=== PATIENT | female | born 1955 | race Caucasian/White ===

== ENCOUNTER 2019-06-17 15:44 | Emergency (ER) | payer MEDICARE, OTHER ==
[~2019-06-17] VITALS: Ht 167.6 cm; Wt 98.0 kg
--- NOTE | 2019-06-17 16:51 | NUR ---
BLADDER SCAN --<120ML
[2019-06-17 17:29] LABS: BILIRUBIN,URINE NEGATIVE (NEGATIVE); CLARITY,URINE SL CLOUDY (CLEAR); COLOR,URINE ORANGE (YELLOW); KETONES,URINE NEGATIVE (NEGATIVE); LEUKOCYTE ESTERASE ,URINE TRACE (NEGATIVE); NITRITE,URINE POSITIVE (NEGATIVE); PROTEIN,URINE DIPSTICK 1+ (NEGATIVE); URINE UROBILINOGEN 4 mg/dL (0.2 - 1)
[2019-06-17] MEDS ORDERED: CEFTRIAXONE SOD 1 GM VIAL IM ONE (17:45)
[2019-06-17 18:30] LABS: BACTERIA,URINE MANY /HPF; EPITHELIAL CELLS,URINE FEW /LPF; WBC,URINE (MAN) 0-5 /HPF (0-5)
== END 2019-06-17 18:19 | disposition home or self-care (01) ==
LOC: ER 15:44
DX: R30.0 Dysuria (principal); N30.90 Cystitis, unspecified without hematuria; I10 Essential (primary) hypertension; E11.9 Type 2 diabetes mellitus without complications; M79.7 Fibromyalgia
CPT/HCPCS: 81001; 87086; 87186; 99284; J0696

== ENCOUNTER 2020-06-17 13:59 | Emergency (ER) | payer MEDICARE, OTHER ==
[~2020-06-17] VITALS: Ht 167.6 cm; Wt 98.0 kg
[2020-06-17] MEDS ORDERED: HYDROCODONE/APAP 7.5MG-325MG 1 EA TAB PO PRN (14:30)
--- OUTSIDE RECORDS SUMMARY | 2020-06-17 15:11 | XMS REPORT | Summary of Care ---
Author [facility] Address [address] [place] [address] Phone Unavailable Care Team Providers Care Crating And Moving Estimator Name Role Phone NASRIN Díaz, VICKI Grace Unavailable NASRIN Díaz, VICKI Jaramillo Unavailable Unavailable RAI EDMONDS [facility], LAI DOMINGUEZ Unavailable Unavailable SORIN LEOS MD Unavailable Unavailable RAI Aguillon, LAI Unavailable Unavailable NASRIN MITCHELL VA, VICKI Reyes Unavailable Unavailable SAAD EDMONDS [facility], BG MARQUIS Unavailable Unavailable Unavailable Unavailable Functional Status Name Dates Details Functional status health issues are not documented Status: Name Dates Details Cognitive status health issues are not d ocumented Status: Problems Name Dates Details Breast cancer screening (V76.10, Z12.39) Status: Active Osteoporosis screening (V82.81, Z13.820) Status: Active Encounter for cervical Pap smear with pe lvic exam (V76.2, Z01.419) Status: Active History of Elevated ALT measurement (790 .4, R74.0) Status: Resolved Urinary urgency (788.63, R39.15) Status: Active Synovial cyst of right popliteal space ( 727.51, M71.21) Status: Active Anemia, unspecified type (285.9, D64.9) Status: Active Acute frontal sinusitis (461.1, J01.10) Status: Active 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, with long-term current use of insulin (250.60, E11.40) Status: Active Common migraine without aura (346.10, G4 3.009) Status: Active Essential (primary) hypertension (401.9, I10) Status: Active Dysthymic disorder (300.4, F34.1) Status: Active 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, 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 Colon cancer screening (V76.51, Z12.11) Status: Active Insomnia, idiopathic (307.42, F51.01) Status: Active Hypothyroidism due to acquired atrophy o f thyroid (244.8, E03.4) Status: Active HSV (herpes simplex virus) infection (05 4.9, B00.9) Status: Active GERD without esophagitis (530.81, K21.9) Status: Active Fibromyalgia (729.1, M79.7) Status: Active Need for influenza vaccination (V04.81, Z23) Status: Active Need for Streptococcus pneumoniae vaccin ation (V03.82, Z23) Status: Active Polyarthropathy, 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, 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: Active Seasonal allergic rhinitis due to pollen (477.0, J30.1) Status: Active Tremor, coarse (781.0, G25.2) Status: Active Well female exam with routine gynecologi kunal exam (V72.31, Z01.419) Status: Active Visit for screening mammogram (V76.12, Z 12.31) Status: Active Post-menopausal (V49.81, Z78.0) Status: Active Atypical squamous cell changes of undete rmined significance (ASCUS) on vaginal cytology (795.11, R87.620) Status: Active Abnormal Pap smear of cervix (795.00, R8 7.619) Status: Active Post-menopausal bleeding (627.1, N95.0) Status: Active Obstructive sleep apnea (327.23, G47.33) Status: Active Essential tremor (333.1, G25.0) Status: Active Medications Name Dates Details DULoxetine HCl - 60 MG Oral Capsule Mary yed Release Particles TAKE ONE CAPSULE BY MOUTH ONCE A DAY.. NEEDS OFFICE VISIT Quantity: 30 NASRIN N.P.VICKI * Start : 20-Jun-2017 Active Levothyroxine Sodium 150 MCG Oral Tablet TAKE 1 TABLET DAILY. * Quantity: 90 Refills: 3 NASRIN N.P.VICKI Active Cyclobenzaprine HCl - 10 MG Oral Tablet 1 tab PO BID * Quantity: 180 Refills: 0 NASRIN Gil.P.VICKI Active Aspirin 81 MG TABS one daily * Refills: 0 Active Malorie-Rul Vitamin D 50 MCG (1999 UT) Oral Tablet * Refills: 0 Active Melatonin 10 MG Oral Capsule at HS * Refills: 0 Active Multivitamins CAPS TAKE 1 CAPSULE DAILY. * Refills: 0 Active metFORMIN HCl ER 500 MG Oral Tablet Extended Release 24 Hour TAKE 2 TABLETS BY MOUTH TWICE DAILY * Quantity: 360 Refills: 0 ALEXANDRA N.P., VICKI D. * Start : 30-Dec-2014 Active SUMAtriptan Succinate 100 MG Oral Tablet TAKE 1 TABLET BY MOUTH FOR MIGRAINE RELIEF. MAY REPEAT 2 HOURS LATER IF NEEDED. MAXIMUM 2 TABLETS PER DAY. * Quantity: 1 Refills: 6 ALEXANDRA N.P., VICKI D. * Start : 02-Feb-2016 Active 9 Tablet Bottle Aleve 220 MG Oral Tablet TAKE 2 TABLET 2 TIMES DAILY PRN w/ Sumatriptan * Refills: 0 ALEXANDRA N.P., VICKI * Start : 02-Feb-2016 Active Vitamin B-12 500 MCG Sublingual Tablet Sublingual ONE TAB ORALLY ONCE OR TWICE A DAY FOR MIGRAINE PREVENTION. * Refills: 0 ALEXANDRA N.P., VICKI * Start : 02-Feb-2016 Active Fosinopril Sodium 10 MG Oral Tablet TAKE 1 TABLET BY MOUTH EVERY DAY * Quantity: 90 Refills: 0 ALEXANDRA N.P., VICKI D. * Start : 14-Apr-2017 Active traMADol HCl - 50 MG Oral Tablet 1-2 PO Q6 hrs PRN * Quantity: 90 Refills: 2 ALEXANDRA N.P., VICKI D. * Start : 18-Dec-2018 Active Diclofenac Epolamine 1.3 % Transdermal Patch APPLY PATCH TO AFFECTED AREA TWICE DAILY. * Quantity: 2 Refills: 5 ALEXANDRA N.P., VICKI * Start : 06-Mar-2019 Active 30 Patch Box Gabapentin 300 MG Oral Capsule TAKE 1 CAPSULE IN THE MORNING AND 1-2 CAPSULES IN THE EVENING. * Refills: 0 ALEXANDRA N.P., VICKI Reyes. * Start : 06-Sep-2019 Active MethylPREDNISolone Acetate 40 MG/ML Injection Suspension 1.5 ML IM x1= 60 MG * Quantity: 0 Refills: 0 ALEXANDRA N.P., VICKI D. * Start : 06-Sep-2019 Admin Requested L-Lysine 500 MG Oral Tablet TAKE 1 TABLET DAILY forcold sore prevention * Refills: 0 ALEXANDRA N.P., VICKI D. * Start : 06-Sep-2019 Active Cod Liver Oil Oral Capsule 3-4 caps twice a day for Arthritis..0.3-4 week trial * Refills: 0 ALEXANDRA N.P., VICKI D. * Start : 06-Sep-2019 Active Allergies and Adverse Reactions Name Dates Details buPROPion HCl TABS (Allergy) Status: Act veronika Darvocet-N 50 TABS (Allergy) Status: Act veronika Erythromycin TABS (Allergy) Status: Acti ve Past Medical History Name Dates Details History of Abdominal pain, acute, epigas tric (789.06, R10.13) Status: Resolved History of Achilles tendinitis (726.71, M76.60) Status: Resolved History of Acute bacterial pharyngitis ( 462, J02.8) Status: Resolved History of acute bronchitis (V12.69, Z87 .09) Status: Resolved History of acute cystitis (V13.02, Z87.4 40) Status: Resolved History of acute cystitis (V13.02, Z87.4 40) Status: Resolved History of acute pharyngitis (V12.69, Z8 7.09) Status: Resolved History of Acute upper respiratory infec tion (465.9, J06.9) Status: Resolved History of Acute UTI (599.0, N39.0) Status: Resolved History of Acute UTI (599.0, N39.0) Status: Resolved History of Acute UTI (599.0, N39.0) Status: Resolved History of Arthritis Of Multiple Sites ( 716.99) Status: Resolved History of backache (V13.59, Z87.39) Status: Resolved History of Cough (786.2, R05) Status: Resolved History of Elevated ALT measurement (790 .4, R74.0) Status: Resolved History of essential hypertension (V12.5 9, Z86.79) Status: Resolved History of fibromyositis (V13.59, Z87.39 ) Status: Resolved History of fracture of clavicle (V15.51, Z87.81) Status: Resolved History of hypothyroidism (V12.29, Z86.3 9) Status: Resolved History of Intractable nausea and vomiti ng (536.2, R11.2) Status: Resolved History of Multiparity (V61.5, Z64.1) Status: Resolved History of Need for hepatitis C screenin g test (V73.89, Z11.59) Status: Resolved History of Need for Td vaccine (V06.5, Z 23) Status: Resolved History of Pain in hand (729.5, M79.643) Status: Resolved History of persistent cough (V12.69, Z87 .09) Status: Resolved History of precordial chest pain (V13.89 , Z87.898) Status: Resolved History of recurrent urinary tract infec tion (V13.02, Z87.440) Status: Resolved History of Right knee pain (719.46, M25. 561) Status: Resolved History of urinary frequency (V13.09, Z8 7.898) Status: Resolved History of urinary tract infection (V13. 02, Z87.440) Status: Resolved History of urinary tract infection (V13. 02, Z87.440) Status: Resolved Procedures Procedure Dates Details [Q] FECAL GLOBIN BY IMMUNOCHEM. (MEDICARE) Date: 27-Nov-2019 History of Tonsillectomy With Adenoidectomy Completed History of Appendectomy Completed History of Cholecystectomy Completed History of Dilation And Curettage Comple nish History of Gallbladder surgery Completed History of Knee Surgery Completed History of Tubal Ligation Completed Immunization Name Dates Details Fluzone Quadrivalent 0.5 ML Intramuscula r Suspension Lot #: [id number] on: 28-Jan-2016 Tdap (Adacel) Lot #: [id number] on: 28-Jan-2016 Fluzone High-Dose 0.5 ML Intramuscular S uspension Prefilled Syringe Lot #: [id number] on: 06-Sep-2019 Prevnar 13 Intramuscular Suspension Lot #: [id number] on: 06-Sep-2019 Family History Name Dates Details Family history of lung cancer (V16.1, Z8 0.1) Status: Active Family history of leukemia (V16.6, Z80.6 ) Status: Active Family history of Cirrhosis, nonalcoholi c (571.5, K74.60) Status: Active Name Dates Details Family history of leukemia (V16.6, Z80.6 ) Status: Active Family history of Cirrhosis, nonalcoholi c (571.5, K74.60) Status: Active Name Dates Details Family history of Hypertension (V17.49) Status: Active Name Dates Details Family history of Hypertension (V17.49) Status: Active Social History Name Dates Details - Status: Name Dates Details Never smoker Never smoker Vital Signs Date Test Result Details [id number] BP Systolic 123 mm[Hg] Status: Comments: Lo cation: RUE; Position: Sitting BP Diastolic 82 mm[Hg] Status: Comments: Lo cation: RUE; Position: Sitting Height 166.5 cm Status: Weight 99 kg Status: Body Mass Index Calculated 35.71 kg/m2 Status: Body Surface Area Calculated 2.07 m2 Status: Temperature 97.6 f Status: Comments: Me thod: Oral Heart Rate 92 /min Status: Respiration Rate 16 /min Status: Results Date Description Value Details Results not documented Plan of Care Name Dates Details Planned Observations Planned Goals not documented Planned Encounters Appointment; SORIN LEOS M.D. On: 31-Dec-2019 7:30 Appointment; SORIN LEOS M.D. On: 13-Jan-2020 10:40 Instructions Name Dates Details Instructions not documented Encounters Appointment; VICKI ALEXANDRA NP Encounter Diagnosis: Problem not documented On: 04-Jan-2018 13:30 Appointment; VICKI ALEXANDRA NP Encounter Diagnosis: Problem not documented On: 18-Jan-2018 14:00 Appointment; KRYSTAL AGGARWAL NP Encounter Diagnosis: Problem not documented On: 02-Mar-2018 10:45 Appointment; VICKI ALEXANDRA NP Encounter Diagnosis: Problem not documented On: 24-May-2018 14:00 Appointment; WILLIS MENDEZ, P.AMeka Encounter Diagnosis: Problem not documented On: 11-Jun-2018 12:30 Appointment; WILLIS MENDEZ, P.AMeka Encounter Diagnosis: Problem not documented On: 14-Aug-2018 14:30 Appointment; VICKI ALEXANDRA NP Encounter Diagnosis: Problem not documented On: 18-Dec-2018 11:00 Appointment; VICKI ALEXANDRA NP Encounter Diagnosis: Problem not documented On: 31-Jan-2019 14:15 Appointment; VICKI ALEXANDRA NP Encounter Diagnosis: Problem not documented On: 13-Feb-2019 13:30 Appointment; VICKI ALEXANDRA NP Encounter Diagnosis: Problem not documented On: 05-Jun-2019 10:00 Appointment; VICKI ALEXANDRA NP Encounter Diagnosis: Problem not documented On: 10-Jul-2019 14:30 Appointment; VICKI ALEXANDRA NP Encounter Diagnosis: Problem not documented On: 06-Sep-2019 10:30 Appointment; WILLIS MENDEZ, P.A. Encounter Diagnosis: Problem not documented On: 19-Sep-2019 10:00 Appointment; SORIN LEOS M.D. Encounter Diagnosis: Problem not documented On: 07-Oct-2019 11:00 Appointment; SORIN LEOS M.D. Encounter Diagnosis: Problem not documented On: 29-Oct-2019 11:30 Appointment; [facility]PERATOR-[facility]COLOGY, PROVIDER Encounter Diagnosis: Problem not documented On: 11-Nov-2019 9:00 Appointment; SORIN LEOS M.D. Encounter Diagnosis: Problem not documented On: 18-Nov-2019 12:20 Appointment; SORIN LEOS M.D. Encounter Diagnosis: Problem not documented On: 09-Dec-2019 10:20
--- OUTSIDE RECORDS SUMMARY | 2020-06-17 15:11 | XMS REPORT ---
Author Author [facility]ES[facility] AGU[facility] Organization Unknown Address Unknown Phone Care Team Providers Care Patient Safety Officer Name Role Phone PATTY AGUILAR PP Unavailable Reason for Referral No Reason for Referral was given. History of Present Illness No HPI available. Problems * Normal Routine History And Physical Adult (V70.0); (Active) * Atrial Fibrillation (427.31); (Active) * Fibromyalgia (729.1); (Active) * Pain In The Hands (729.5); (Active) * Diabetes Mellitus (250.00); (Active) * Depression (311); (Active) * Hypertension (401.9); (Active) * Hypothyroidism (244.9); (Active) * Acute Sore Throat (462); (Active) * Acute Upper Respiratory Infection (465.9); (Active) * Polyarthritis Of Multiple Sites (716.59); (Active) Medication * Cymbalta 60 MG Oral Capsule Delayed Release Particles; ONCE DAILY (Active) * Janumet 50-500 MG Oral Tablet; TAKE 1 TABLET TWICE DAILY WITH MEALS.; Start Date: ; End Date: (Active) * Levothyroxine Sodium 150 MCG Oral Tablet; TAKE 1 TABLET DAILY.; Start Date: ; End Date: (Active) * Cyclobenzaprine HCl 5 MG Oral Tablet; TAKE 0.5 TABLET DAILY (Active) * Fosinopril Sodium 20 MG Oral Tablet; TAKE 1 TABLET DAILY.; Start Date: ; End Date: (Active) * Aspirin 81 MG Oral Tablet; one daily (Active) * TraMADol HCl 50 MG Oral Tablet; 1-2 PO Q6 hrs PRN; Start Date: 12/05/2013; End Date: (Active) * Niacin 500 MG Oral Tablet; BID (Active) * Vitamin D3 1000 UNIT Oral Tablet; daily (Active) * Fish Oil CAPS; 1200 BID (Active) * Melatonin 10 MG Oral Capsule; at HS (Active) * Valerian Root 450 MG Oral Capsule; for sleep; Start Date: 12/05/2013 (Active) * Advil CAPS; PRN (Active) * Multivitamins CAPS; TAKE 1 CAPSULE DAILY. (Active) * Meloxicam 7.5 MG Oral Tablet; TAKE 1 TO 2 TABLETS DAILY WITH FOOD.; Start Date: 12/17/2013; End Date: (Active) * Cefdinir 300 MG Oral Capsule; TAKE 2 CAPSULES DAILY.; Start Date: 12/13/2013; End Date: (Active) * Magic Mouthwash; swish, garge & spit q 30 min PRN; Start Date: 12/13/2013 (Active) Allergies and Adverse Reactions * Erythromycin TABS (Active) * Darvocet-N 50 TABS (Active) Past Medical History * History of History Of 2 Previous Pregnancies (V61.5); (Resolved) * History of Fibromyalgia (729.1); (Resolved) * History of Diabetes Mellitus (250.00); (Resolved) * History of Hypothyroidism (244.9); (Resolved) * History of Hypertension (401.9); (Resolved) * History of Obstructive Sleep Apnea (327.23); (Resolved) * History of Arthritis Of Multiple Sites (716.99); (Resolved) Procedures Procedure Procedure Date Date Completed Status Tonsillectomy With Adenoidectomy - - Resolved Appendectomy - - Resolved Cholecystectomy - - Resolved Dilation And Curettage - - Resolved Family History * Maternal history of Hypertension (V17.49); (Active) * Paternal history of Hypertension (V17.49); (Active) Social History * Marital History - Single (Active) * Being A Social Drinker (Active) * Never A Smoker (Active) * 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 Encounters * AUDIT 12/17/2013
--- OUTSIDE RECORDS SUMMARY | 2020-06-17 15:11 | XMS REPORT ---
Author Author LESLY AGUILAR Organization Unknown Address Unknown Phone Care Team Providers Care Destination Coordinator Name Role Phone PATTY AGUILAR PP Unavailable [...] * Polyarthritis Of Multiple Sites (716.59); (Active) * Cough (786.2); (Active) * Back Pain (724.5); (Active) * Tendonitis Of The Achilles Tendon (726.71); (Active) Medication * Cymbalta 60 MG Oral [...] MG Oral Tablet; one daily (Active) * Niacin 500 MG Oral Tablet; BID (Active) * Vitamin D3 1000 UNIT Oral Tablet; daily (Active) * Fish Oil CAPS; 1200 BID (Active) * Melatonin 10 MG Oral Capsule; at HS (Active) * Valerian Root 450 MG Oral Capsule; for sleep; Start Date: 12/05/2013 (Active) * Advil CAPS; PRN (Active) * Multivitamins CAPS; TAKE 1 CAPSULE DAILY. 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 Encounters * AUDIT 12/31/2013
--- OUTSIDE RECORDS SUMMARY | 2020-06-17 15:11 | XMS REPORT | Continuity of Care Document ---
[facility] Address Unknown Phone Unavailable Care Team Providers Care Negative Spotter Name Role Phone [employer] Unavailable Un available Problems Problem Status Onset Date Classification Date Reported Comments Source Atrial Fibrillation Active 01/13/2014 [facility] Acute Sore Throat Active 01/13/2014 [facility] Acute Upper Respiratory Infection Active 01/13/2014 [facility] Fibromyalgia Active 01/13/2014 [facility] Pain In The Hands Active 01/13/2014 [facility] Diabetes Mellitus Active 01/13/2014 [facility] Depression Active 01/13/2014 [facility] Hypertension Active 01/13/2014 [facility] Hypothyroidism Active 01/13/2014 [facility] Polyarthritis Of Multiple Sites Active 01/13/2014 [facility] Cough Active 01/13/2014 [facility] Back Pain Active 01/13/2014 [facility] Tendonitis Of The Achilles Tendon Active 01/13/2014 [facility] Acute Bronchitis Active 01/13/2014 [facility] Medications Medication Details Route Status Patient Instructions Ordering Provider Order Date Source Cefdinir 300 MG Oral Capsule ; Start Date: 01/13/2014; End Date: (Active) Active 01/13/2014 [facility] PredniSONE 10 MG Oral Tablet ; Start Date: 01/13/2014; End Date: (Active) Active 01/13/2014 [facility] Benzonatate 200 MG Oral Capsule ; Start Date: 01/13/2014 (Active) Active 01/13/2014 [facility] Advair Diskus 250-50 MCG/DOSE Inhalation Aerosol Powder Breath Activated ; Start Date: 01/13/2014 (Active) Active 01/13/2014 [facility] Flector 1.3 % Transdermal Patch ; Start Date: 12/30/2013; End Date: (Active) Active 12/30/2013 [facility] Meloxicam 7.5 MG Oral Tablet ; Start Date: 12/17/2013; End Date: (Active) Active 12/17/2013 [facility] Cefdinir 300 MG Oral Capsule ; Start Date: 12/13/2013; End Date: (Active) Active 12/13/2013 [facility] TraMADol HCl 50 MG Oral Tablet ; Start Date: 12/05/2013; End Date: (Active) Active 12/05/2013 [facility] Valerian Root 450 MG Oral Capsule ; Start Date: 12/05/2013 (Active) Active 12/05/2013 [facility] Janumet 50-500 MG Oral Tablet ; Start Date: ; End Date: (Active) Inactive [facility] Levothyroxine Sodium 150 MCG Oral Tablet ; Start Date: ; End Date: (Active) Inactive [facility] Fosinopril Sodium 20 MG Oral Tablet ; Start Date: ; End Date: (Active) Inactive [facility] Cymbalta 60 MG Oral Capsule Delayed Release Particles (Active) Active [facility] Cyclobenzaprine HCl 5 MG Oral Tablet (Active) Active [facility] Aspirin 81 MG Oral Tablet (Ac tive) Active [facility] Niacin 500 MG Oral Tablet (Ac tive) Active [facility] Vitamin D3 1000 UNIT Oral Tablet (Active) Active [facility] Fish Oil CAPS (Active) Active [facility] Melatonin 10 MG Oral Capsule (Active) Active [facility] Advil CAPS (Active) Active [facility] Multivitamins CAPS (Active) Active [facility] Allergies, Adverse Reactions, Alerts Substance Category Reaction Severity Reaction type Status Date Reported Comments Source Erythromycin TABS drug allergy drug allergy Active [facility] Darvocet-N 50 TABS drug allergy drug allergy Active [facility] Immunizations No Data Provided for This Section Results No Data Provided for This Section Pathology Reports No Data Provided for This Section Diagnostic Reports No Data Provided for This Section Consultation Notes No Data Provided for This Section Discharge Summaries No Data Provided for This Section History and Physicals No Data Provided for This Section Vital Signs No Data Provided for This Section Encounters Location Location Details Encounter Type Encounter Number Reason For Visit Attending Provider ADM Date DC Date Status Source AUDIT [id number] 12/05/2013 12/05/2013 [facility] A[facility] [id number] 12/06/2013 12/06/2013 [facility] AUDIT [id number] 12/10/2013 12/10/2013 [facility] Elmer SWEET kanwal: MICHELLE AGUILARNEY, Status: Pen, Time: 9:00 AM [id number] 12/17/2013 12/10/2013 [facility] AUDIT [id number] 12/17/2013 12/17/2013 [facility] AUDIT [id number] 12/31/2013 12/31/2013 [facility] AUDIT [id number] 01/13/2014 01/13/2014 [facility] Procedures No Data Provided for This Section Assessment and Plan No Data Provided for This Section Plan of Care Plan of Care Date Source XRAY Spine thoracic AP Lat swimmer [id number] 12/30/2013 Routine 01/13/2014 [facility] XRAY Spine thoracic AP Lat swimmer [id number] 12/30/2013 Routine 12/31/2013 [facility] XRAY Hand AP lateral oblique [id number] 12/05/2013 Routine 12/05/2013 [facility] Social History Social History Date Source Marital History - Single (Active) Being A Social Drinker (Active) 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) Never A Smoker (Active) 01/13/2014 [facility] Family History Value Date S ource Maternal history of Hypertension (V17.49 ); (Active) Paternal history of Hypertension (V17.49); (Active) 01/13/2014 [facility] Maternal history of Hypertension (V17.49 ); (Active) Paternal history of Hypertension (V17.49); (Active) 12/31/2013 [facility] Maternal history of Hypertension (V17.49 ); (Active) Paternal history of Hypertension (V17.49); (Active) 12/17/2013 [facility] Maternal history of Hypertension (V17.49 ); (Active) Paternal history of Hypertension (V17.49); (Active) 12/10/2013 [facility] Maternal history of Hypertension (V17.49 ); (Active) Paternal history of Hypertension (V17.49); (Active) 12/06/2013 [facility] Maternal history of Hypertension (V17.49 ); (Active) Paternal history of Hypertension (V17.49); (Active) 12/05/2013 [facility] Advance Directives Order Name Results Value Date Source Advance Directives Advance Dir ectives No Advance Directives available. 01/13/2014 [facility] Advance Directives Advance Dir ectives No Advance Directives available. 12/31/2013 [facility] Advance Directives Advance Dir ectives No Advance Directives available. 12/17/2013 [facility] Advance Directives Advance Dir ectives No Advance Directives available. 12/10/2013 [facility] Advance Directives Advance Dir ectives No Advance Directives available. 12/06/2013 [facility] Advance Directives Advance Dir ectives No Advance Directives available. 12/05/2013 [facility] Functional Status No Data Provided for This Section
--- OUTSIDE RECORDS SUMMARY | 2020-06-17 15:11 | XMS REPORT | Summary of Care ---
Author Author LESLY Bazan LVN Organization Unknown Address [facility] Phone Unavailable Care Team Providers Care Packer Fuser Name Role Phone Hortensia GERALDINEAlisa Unavailable Unavailable NASRIN N.Chanelle, VICKI Unavailable Unavailable NASRIN Gil.Isaura., VICKI Jaramillo Unavailable Unavailable ARI EDMONDS ND, LAI DOMINGUEZ Unavailable Unavailable DAFNE EDMONDS, SORIN Unavailable Unavailable RAI Aguillon, LAI Unavailable Unavailable NASRIN MITCHELL ND, VICKI Reyes Unavailable Unavailable SAAD EDMONDS ND, BG MARQUIS Unavailable Unavailable Unavailable Unavailable Functional [...] TABLET DAILY. * Quantity: 90 Refills: 3 ALEXANDRA N.P.VICKI Active Cyclobenzaprine HCl - 10 MG Oral Tablet 1 tab PO BID * Quantity: 180 Refills: 0 NASRIN Gil.PVICKI Ackerman Active Aspirin 81 MG TABS one daily [...] EVENING. * Refills: 0 ALEXANDRA N.P., VICKI Eric. * Start : 06-Sep-2019 Active MethylPREDNISolone Acetate [...] trial * Refills: 0 ALEXANDRA N.P., VICKI Eric. * Start : 25-Oct-2019 Active Allergies and Adverse Reactions Name Dates [...] 0.5 ML Intramuscula r Suspension Lot #: [id number] on: 28-Jan-2016 Tdap (Adacel) Lot #: [id number] on: 28-Jan-2016 Fluzone High-Dose 0.5 ML Intramuscular S uspension Prefilled Syringe Lot #: [id number] on: 06-Sep-2019 Prevnar 13 Intramuscular Suspension Lot #: [id number] on: 06-Sep-2019 Family History Name Dates Details [...] smoker Vital Signs Date Test Result Details [id number] BP Systolic 123 mm[Hg] Status: Comments: Lo cation: RUE; Position: Sitting BP Diastolic 82 mm[Hg] Status: Comments: Lo cation: RUE; Position: Sitting Height 166.5 cm Status: Weight 99 kg Status: Body Mass Index Calculated 35.71 kg/m2 Status: Body Surface Area Calculated 2.07 m2 Status: Temperature 97.6 f Status: Comments: Me thod: Oral Heart Rate 92 /min Status: Respiration Rate 16 /min Status: [id number] BP Systolic 139 mm[Hg] Status: Comments: Lo cation: RUE; Position: Sitting BP Diastolic 82 mm[Hg] Status: Comments: Lo cation: RUE; Position: Sitting Height 166.7 cm Status: Weight 99.3 kg Status: Body Mass Index Calculated 35.73 kg/m2 Status: Body Surface Area Calculated 2.07 m2 Status: Temperature 98 f Status: Comments: Me thod: Oral Heart Rate 106 /min Status: Respiration Rate 18 /min Status: Results Date Description Value Details Results not documented Plan of Care Name Dates Details Planned Observations Planned Goals not documented Planned Encounters Appointment; SORIN LEOS M.D. On: 09-Dec-2019 10:20 Appointment; SORIN LEOS M.D. On: 31-Dec-2019 7:30 Appointment; SORIN LEOS M.D. On: 13-Jan-2020 10:40 Interventions Provided Medication Changes* DULoxetine HCl - 60 MG Oral Capsule Delayed Release Particles - Renew Instructions Name Dates Details Instructions not documented Encounters Appointment; VICKI ALEXANDRA NP Encounter Diagnosis: Problem not documented On: 04-Jan-2018 13:30 Appointment; VICKI ALEXANDRA NP Encounter Diagnosis: Problem not documented On: 18-Jan-2018 14:00 Appointment; KRYSTAL AGGARWAL NP Encounter Diagnosis: Problem not documented On: 02-Mar-2018 10:45 Appointment; VICKI ALEXANDRA NP Encounter Diagnosis: Problem not documented On: 24-May-2018 14:00 Appointment; WILLIS MENDEZ PJanusz Encounter Diagnosis: Problem not documented On: 11-Jun-2018 12:30 Appointment; WILLIS MENDEZ PJanusz Encounter Diagnosis: Problem not documented On: 14-Aug-2018 [...] not documented On: 06-Sep-2019 10:30 Appointment; WILLIS MENDEZ P.A. Encounter Diagnosis: Problem not documented On: 19-Sep-2019 10:00 Appointment; SORIN LEOS M.D. Encounter Diagnosis: Problem not documented On: 07-Oct-2019 11:00 Appointment; SORIN LEOS M.D. 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 Encounter Diagnosis: Problem not documented On: 18-Nov-2019 12:20
--- OUTSIDE RECORDS SUMMARY | 2020-06-17 15:11 | XMS REPORT ---
Author Author LESLY ALEXANDRA Organization Unknown Address Unknown Phone Care Team Providers Care Machine Filler Name Role Phone VICKI ALEXANDRA PP Unavailable Reason for Referral No Reason for Referral was given. History of Present Illness No HPI available. Problems * Normal Routine History And Physical Adult (V70.0); (Active) * Atrial Fibrillation (427.31); (Active) * Acute Sore Throat (462); (Active) * Acute Upper Respiratory Infection (465.9); (Active) * Fibromyalgia (729.1); (Active) * Pain In The Hands (729.5); (Active) * Diabetes Mellitus (250.00); (Active) * Depression (311); (Active) * Hypertension (401.9); (Active) * Hypothyroidism (244.9); (Active) Medication * Cymbalta 60 MG Oral [...] Start Date: 12/05/2013; End Date: (Active) * Valerian Root 450 MG Oral Capsule; for sleep; Start Date: 12/05/2013 (Active) * Niacin 500 MG Oral Tablet; BID (Active) * Vitamin D3 1000 UNIT Oral Tablet; daily (Active) * Fish Oil CAPS; 1200 BID (Active) * Melatonin 10 MG Oral Capsule; at HS (Active) Allergies and Adverse Reactions * Erythromycin TABS (Active) Past Medical History * History [...] Never A Smoker (Active) * 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 Encounters * AUDIT 12/05/2013
--- OUTSIDE RECORDS SUMMARY | 2020-06-17 15:11 | XMS REPORT | Continuity of Care Document ---
Author Author [facility] t Organization [facility] Address [address] [place] [address] Phone Unavailable Care Team Providers Care Technician'S Helper Name Role Phone REED EDMNODS, Josh SANTANA PCP VICKI ALEXANDRA APRN Attphys Unavailable FACILITIES MAINTENANCE ENGINEER-ONCOLOGY, PROVIDER Attphys Unavailable SORIN LEOS M.D. Attphys Unavailable WILLIS MENDEZ, P.A. Attphys Unavailable KRYSTAL AGGARWAL APRN Attphys Unavailable DAVID BAEZ M.D. Attphys Unavailable DAYNA ENRIQUEZ M.D. Attphys Unavailable VICKI ALEXANDRA, RANJIT Attphys Unavailable QUYEN HOBBS, P.A. Attphys Unavailable Payers Payer Name Policy Type Policy Number Effective Date Expiration Date Davin ferreira Medicare A & B [id number] 2018 00:00:00 [facility] Other Medicare Replacement [id number] [facility] Problems Condition Name Condition Details Condition Category Status Onset Date Resolution Date Last Treatment Date Treating Clinician Comments Source History of Arthritis Of Multiple Sites History of Arthritis Of Multiple Sites Problem Resolved [facility] History of Elevated ALT measurement History of Elevated ALT james urement Problem Resolved [facility] History of Abdominal pain, acute, epigastric History o f Abdominal pain, acute, epigastric Problem Resolved [place] [facility] History of Achilles tendinitis History of Achilles tendinitis Probl em Resolved [facility] History of Acute bacterial pharyngitis History of Acute bact erial pharyngitis Problem Resolved [facility] History of persistent cough History of persistent cough Problem Resolved [facility] History of urinary tract infection History of urinary tract infe ction Problem Resolved [facility] History of Acute upper respiratory infection History o f Acute upper respiratory infection Problem Resolved [facility] History of Frequent UTI History of Frequent UTI Problem Resolved [facility] History of fibromyositis History of fibromyositis Problem Resolved [facility] History of Cough History of Cough Problem Resolved [facility] History of essential hypertension History of essential hypertens ion Problem Resolved [facility] History of fracture of clavicle History of fracture of clavicle Problem Resolved [facility] History of hypothyroidism History of hypothyroidism Problem Resolved [facility] History of Intractable nausea and vomiting History of Intractable nausea and vomiting Problem Resolved [facility] History of Multiparity History of Multiparity Problem Resolved [facility] History of Need for hepatitis C screening test History of Need for hepatitis C screening test Problem Resolved [facility] Need for influenza vaccination Need for influenza vaccination Problem Active [facility] History of Pain in hand History of Pain in hand Problem Resolved [facility] History of urinary frequency History of urinary frequency Problem Re solved [facility] History of Right knee pain History of Right knee pain Problem Resolved [facility] Breast cancer screening Breast cancer screening Problem Active [facility] Osteoporosis screening Osteoporosis screening Problem Active [facility] Well female exam with routine gynecological exam Well female exam with routine gynecological exam Problem Active [facility] Urinary urgency Urinary urgency Problem Active [facility] Synovial cyst of right popliteal space Synovial cyst of righ t popliteal space Problem Active [facility] History of Acute frontal sinusitis History of Acute frontal sinu sitis Problem Resolved [facility] 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, with long-term current use of insulin 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, with long- term current use of insulin Problem Active [facility] Anemia, unspecified type Anemia, unspecified type Problem Active [facility] 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 [facility] History of Atypical squamous cell change s of undetermined significance (ASCUS) on vaginal cytology History of Atypical squamous cell change s of undetermined significance (ASCUS) on vaginal cytology Problem Resolved [facility] Common migraine without aura Common migraine without aura Problem Active [facility] Dysthymic disorder Dysthymic disorder Problem Active [facility] Essential (primary) hypertension Essential (primary) hypertensio n Problem Active [facility] Essential tremor Essential tremor Problem Active [facility] Fibromyalgia Fibromyalgia Problem Active [facility] GERD without esophagitis GERD without esophagitis Problem Active [facility] Hypothyroidism due to acquired atrophy of thyroid Hypo thyroidism due to acquired atrophy of thyroid Problem Active [facility] Insomnia, idiopathic Insomnia, idiopathic Problem Active [facility] NERY on CPAP NERY on CPAP Problem Active [facility] Chronic fatigue syndrome with fibromyalgia Chronic fat igue syndrome with fibromyalgia Problem Active [facility] Visit for screening mammogram Visit for screening mammogram Problem Active [facility] Seasonal allergic rhinitis due to pollen Seasonal ted rgic rhinitis due to pollen Problem Active [facility] Polyarthropathy, multiple sites Polyarthropathy, multiple sites Pro blem Active [facility] [place] [facility] HSV (herpes simplex virus) infection HSV (herpes simplex vir us) infection Problem Active [facility] Colon cancer screening Colon cancer screening Problem Active [facility] Post-menopausal Post-menopausal Problem Active [facility] Tremor, coarse Tremor, coarse Problem Active [facility] UTI symptoms UTI symptoms Problem Active [facility] Fatty liver disease, nonalcoholic Fatty liver disease, nonalcoho lic Problem Active [facility] Screening for HIV without presence of risk factors Scr eening for HIV without presence of risk factors Problem Active [facility] History of postmenopausal bleeding History of postmenopausal ble eding Problem Resolved [facility] Atrial Fibrillation Atri al Fibrillation Active 01/13/2014 [place] [facility] Problem Active 2014-01-13 15:27:32 Crys Burns Acute Sore Throat Acut e Sore Throat Active 01/13/2014 [facility] Problem Active 2014-01-13 15:27:32 M samra Burns Acute Upper Respiratory Infection Acute Upper Respiratory Infection Active 01/13/2014 [facility] Problem Active 2014-01-13 15:27:32 Crys Burns Fibromyalgia Fibr omyalgia Active 01/13/2014 [facility] Problem Active 2014-01-13 15:27:32 Sahil Burns Pain In The Hands Pain In The Hands Active 01/13/2014 [facility] Problem Active 2014-01-13 15:27:32 M samra Burns Diabetes Mellitus Diab etes Mellitus Active 01/13/2014 [facility] Problem Active 2014-01-13 15:27:32 M samra Burns Depression Depr ession Active 01/13/2014 [facility] Problem Active 2014-01-13 15:27:32 Crys Burns Hypertension Hype rtension Active 01/13/2014 [facility] Problem Active 2014-01-13 15:27:32 Sahil Burns Hypothyroidism Hypo thyroidism Active 01/13/2014 [facility] Problem Active 2014-01-13 15:27:32 M samra Burns Polyarthritis Of Multiple Sites Polyarthritis Of Multiple Sites Active 01/13/2014 [facility] Problem Active 2014-01-13 15:27:32 Crys Burns Cough Coug h Active 01/13/2014 [facility] Problem Active 2014-01-13 15:27:32 Sean Burns Back Pain Back Pain Active 01/13/2014 [facility] Problem Active 2014-01-13 15:27:32 Crys Burns Tendonitis Of The Achilles Tendon Tendonitis Of The Achilles Tendon Active 01/13/2014 [facility] Problem Active 2014-01-13 15:27:32 Crys Burns Acute Bronchitis Acut e Bronchitis Active 01/13/2014 [facility] Problem Active 2014-01-13 15:27:32 M samra Burns Allergies, Adverse Reactions, Alerts Allergy Name Allergy Type Status Severity Reaction(s) Onset Date Inacti ve Date Treating Clinician Comments Source DARVOCET Allergy to Substance Active Mild RASH 2011-06-23 00:00:00 [facility] Erythromycin TABS Allergy to drug (finding) Active [facility] buPROPion HCl TABS Allergy to drug (finding) Active [facility] Darvocet-N 50 TABS Allergy to drug (finding) Active [facility] Erythromycin TABS Erythromycin TABS Active [facility] Darvocet-N 50 TABS Darvocet-N 50 TABS Active Crys Burns Family History Family Member Diagnosis Comments Start Date Stop Date Source Mother Family history of Hypertension [facility] Father Family history of Hypertension [facility] Grandmother Family history of lung cancer [facility] Grandmother Family history of leukemia [facility] Grandmother Family history of Cirrhosis, nonalcoholic [facility] cousin Family history of leukemia [facility] cousin Family history of Cirrhosis, nonalcoholic [facility] Unknown Family Member Family History 2013-12-05 15:46:52 2 15:46:52 Crys Burns Social History Social Habit Start Date Stop Date Quantity Comments Source Social History 2014-01-13 15:27:32 2014-01-13 15:27:32 Crys Burns Smoking Status Start Date Stop Date Source Never smoked tobacco (finding) [facility] Medications Ordered Medication Name Filled Medication Name Start Date Stop Da te Current Medication? Ordering Clinician Indication Dosage Frequency Signature (SIG) Comments Components Source Milk Thistle 500 MG Oral Capsule Milk Thistle 500 MG Oral Ca psule 2020-04-07 00:00:00 Yes VICKI ALEXANDRA APRN 1 -2 TAB PO ONCE DAILY FOR LIVER PROTECTION [facility] traMADol HCl - 50 MG Oral Tablet traMADol HCl - 50 MG Oral T ablet 2018-12-18 00:00:00 Yes VICKI ALEXANDRA APRN 1-2 PO Q6 hrs PRN [facility] DULoxetine HCl - 60 MG Oral Capsule Delayed Release Pa rticles DULoxetine HCl - 60 MG Oral Capsule Delayed Release Particles 2017-06-20 00:00:00 Yes VICKI ALEXANDRA APRN 1 Q0.5D TAKE 1 CAPSULE TWICE DAILY. [facility] Fosinopril Sodium 10 MG Oral Tablet Fosinopril Sodium 10 MG Oral Tablet 2017-04-14 00:00:00 Yes VICKI ALEXANDRA APRN Q D TAKE 1 TABLET BY MOUTH EVERY DAY [facility] SUMAtriptan Succinate 100 MG Oral Tablet SUMAtriptan S uccinate 100 MG Oral Tablet 2016-02-02 00:00:00 Yes VICKI ALEXANDRA APRN TAKE 1 TABLET BY MOUTH FOR MIGRAINE RELIEF. MAY REPEAT 2 HOURS LATER IF NEEDED. MAXIMUM 2 TABLETS PER DAY. [facility] Vitamin B-12 500 MCG Sublingual Tablet Sublingual Key min B-12 500 MCG Sublingual Tablet Sublingual 2016-02-02 00:00:00 Yes VICKI ALEXANDRA APRN ONE TAB ORALLY ONCE OR TWICE A DAY FOR MIGRAINE PREVENTION. [facility] metFORMIN HCl ER 500 MG Oral Tablet Extended Release 2 4 Hour metFORMIN HCl ER 500 MG Oral Tablet Extended Release 24 Hour 2014-12-30 00:00:00 Yes VICKI ALEXANDRA APRN TAKE 2 TABLETS BY MOUTH TWICE DAILY [facility] Cymbalta 60 MG Oral Capsule Delayed Release Particles 2014-01-13 15:27:32 Yes (Active) Crys velez Cyclobenzaprine HCl 5 MG Oral Tablet 2014-01-13 15:27:32 Ye s (Active) Crys Burns Aspirin 81 MG Oral Tablet 2014-01-13 15:27:32 Yes (Active) Crys Burns Niacin 500 MG Oral Tablet 2014-01-13 15:27:32 Yes (Active) Crys Burns Vitamin D3 1000 UNIT Oral Tablet 2014-01-13 15:27:32 Yes (Active) Crys Burns Fish Oil CAPS 2014-01-13 15:27:32 Yes (Acti ve) Crys Burns Melatonin 10 MG Oral Capsule 2014-01-13 15:27:32 Yes (Active) Crys Burns Advil CAPS 2014-01-13 15:27:32 Yes (Active) Crys Burns Multivitamins CAPS 2014-01-13 15:27:32 Yes (Active) Crys Burns Cefdinir 300 MG Oral Capsule 2014-01-13 06:00:00 Yes ; Start Date: 01/13/2014; End Date: (Active) Crys Burns PredniSONE 10 MG Oral Tablet 2014-01-13 06:00:00 Yes ; Start Date: 01/13/2014; End Date: (Active) Crys Burns Benzonatate 200 MG Oral Capsule 2014-01-13 06:00:00 Yes ; Start Date: 01/13/2014 (Active) Crys Helms nn Advair Diskus 250-50 MCG/DOSE Inhalation Aerosol Powder Remedios th Activated 2014-01-13 06:00:00 Yes ; Start Date: 01/2014 (Active) Crys Burns Flector 1.3 % Transdermal Patch 2013-12-30 06:00:00 Yes ; Start Date: 12/30/2013; End Date: (Active) Crys Burns Meloxicam 7.5 MG Oral Tablet 2013-12-17 06:00:00 Yes ; Start Date: 12/17/2013; End Date: (Active) Crys Burns Cefdinir 300 MG Oral Capsule 2013-12-13 06:00:00 Yes ; Start Date: 12/13/2013; End Date: (Active) Crys Burns TraMADol HCl 50 MG Oral Tablet 2013-12-05 06:00:00 Yes ; Start Date: 12/05/2013; End Date: (Active) Crys Burns Valerian Root 450 MG Oral Capsule 2013-12-05 06:00:00 Yes ; Start Date: 12/05/2013 (Active) Crys Helms nn Janumet 50-500 MG Oral Tablet Yes ; Start Date: ; End Date: (Active) Crys Burns Levothyroxine Sodium 150 MCG Oral Tablet Yes ; Start Date: ; End Date: (Active) Crys Burns Fosinopril Sodium 20 MG Oral Tablet Yes ; Start Date: ; End Date: (Active) Crys Burns Levothyroxine Sodium 150 MCG Oral Tablet Levothyroxine Sodium 150 MCG Oral Tablet Yes VICKI ALEXANDRA APRN 1 QD TAKE 1 TABLET DAILY. [facility] Cyclobenzaprine HCl - 10 MG Oral Tablet Cyclobenzaprine HCl - 10 MG Oral Tablet Yes VICKI ALEXANDRA APRN 1 tab PO BID [facility] Aspirin 81 MG TABS Aspirin 81 MG TABS Yes on e daily [facility] Malorie-Rul Vitamin D 50 MCG (2000 UT) Oral Tablet Malorie-Rul Vitamin D 50 MCG (2000 UT) Oral Tablet Yes [facility] Melatonin 10 MG Oral Capsule Melatonin 10 MG Oral Capsule Yes at HS [facility] Multivitamins CAPS Multivitamins CAPS Yes 1 QD TAKE 1 CAPSULE DAILY. [facility] Niacin 500 MG Oral Tablet Niacin 500 MG Oral Tablet Yes [facility] Zegerid OTC CAPS Zegerid OTC CAPS Yes [facility] Immunizations Ordered Immunization Name Filled Immunization Name Date Status Comments Source Prevnar 13 Intramuscular Suspension 2019-09-06 11:29:00 Co mpleted [facility] Fluzone High-Dose 0.5 ML Intramuscular Suspension Prefilled Syringe 2019-09-06 10:44:00 Completed [facility] Tdap (Adacel) 2016-01-28 10:52:00 Completed [facility] Fluzone Quadrivalent 0.5 ML Intramuscular Suspension 2016-01-28 10:50:00 Completed [facility] Vital Signs Vital Name Observation Time Observation Value Comments Source Systolic blood pressure 2020-01-13 11:22:00 138 mm[Hg] Loca tion: LUE; Position: Sitting [facility] Diastolic blood pressure 2020-01-13 11:22:00 84 mm[Hg] Loc ation: LUE; Position: Sitting [facility] Body height 2020-01-13 11:22:00 166.4 cm [facility] Weight 2020-01-13 11:22:00 98.14 kg [facility] Body mass index (BMI) [Ratio] 2020-01-13 11:22:00 35.45 kg/m2 [facility] Body temperature 2020-01-13 11:22:00 98.2 [degF] Method: Oral [facility] Heart Rate 2020-01-13 11:22:00 106 /min [facility] Respiratory rate 2020-01-13 11:22:00 18 /min [facility] Systolic blood pressure 2019-12-30 15:12:00 131 mm[Hg] Loca tion: RUE; Position: Sitting [facility] Diastolic blood pressure 2019-12-30 15:12:00 80 mm[Hg] Loc ation: RUE; Position: Sitting [facility] Body height 2019-12-30 15:12:00 65.55 [in_us] [facility] Weight 2019-12-30 15:12:00 216.5 [lb_av] [facility] Body mass index (BMI) [Ratio] 2019-12-30 15:12:00 35.42 kg/m2 [facility] Body temperature 2019-12-30 15:12:00 98.5 [degF] Method: Temporal [facility] Heart Rate 2019-12-30 15:12:00 103 /min [facility] Respiratory rate 2019-12-30 15:12:00 18 /min [facility] BP Systolic 2019-11-18 13:18:00 123 mm[Hg] Location: RUE; Positi on: Sitting [facility] BP Diastolic 2019-11-18 13:18:00 82 mm[Hg] Location: RUMikael; Positi on: Sitting [facility] Height 2019-11-18 13:18:00 166.5 cm [facility] Weight 2019-11-18 13:18:00 99 kg [facility] Body Mass Index Calculated 2019-11-18 13:18:00 35.71 kg/m2 [facility] Temperature 2019-11-18 13:18:00 97.6 [degF] Method: Oral [facility] Heart Rate 2019-11-18 13:18:00 92 /min [facility] Respiration Rate 2019-11-18 13:18:00 16 /min [facility] BP Systolic 2019-11-11 08:56:00 139 mm[Hg] Location: RUE; Positi on: Sitting [facility] BP Diastolic 2019-11-11 08:56:00 82 mm[Hg] Location: RUE; Positi on: Sitting [facility] Height 2019-11-11 08:56:00 166.7 cm [facility] Weight 2019-11-11 08:56:00 99.3 kg [facility] Body Mass Index Calculated 2019-11-11 08:56:00 35.73 kg/m2 [facility] Temperature 2019-11-11 08:56:00 98 [degF] Method: Oral [facility] Heart Rate 2019-11-11 08:56:00 106 /min [facility] Respiration Rate 2019-11-11 08:56:00 18 /min Quality: Normal [facility] BP Systolic 2019-10-07 11:10:00 117 mm[Hg] Location: RUE; Positi on: Sitting [facility] BP Diastolic 2019-10-07 11:10:00 77 mm[Hg] Location: RUE; Positi on: Sitting [facility] Height 2019-10-07 11:10:00 168.1 cm [facility] Weight 2019-10-07 11:10:00 99.7 kg [facility] Body Mass Index Calculated 2019-10-07 11:10:00 35.28 kg/m2 [facility] Temperature 2019-10-07 11:10:00 98.3 [degF] Method: Oral [facility] Heart Rate 2019-10-07 11:10:00 96 /min [facility] Respiration Rate 2019-10-07 11:10:00 20 /min [facility] O2 SAT 2019-10-07 11:10:00 97 % Source: RA [facility] BP Systolic 2019-09-19 09:48:00 141 mm[Hg] Location: TERRI; Positi on: Sitting [facility] BP Diastolic 2019-09-19 09:48:00 81 mm[Hg] Location: TERRI; Positi on: Sitting [facility] Height 2019-09-19 09:48:00 67 [in_us] [facility] Weight 2019-09-19 09:48:00 215.5 [lb_av] [facility] Body Mass Index Calculated 2019-09-19 09:48:00 33.75 kg/m2 [facility] Temperature 2019-09-19 09:48:00 97.3 [degF] Method: Temporal [facility] Respiration Rate 2019-09-19 09:48:00 16 /min [facility] Heart Rate 2019-09-19 09:48:00 106 /min [facility] BP Systolic 2019-09-06 10:37:00 128 mm[Hg] Location: TERRI; Positi on: Sitting [facility] BP Diastolic 2019-09-06 10:37:00 84 mm[Hg] Location: TERRI; Pos[place] on: Sitting [facility] Height 2019-09-06 10:37:00 67 [in_us] [facility] Weight 2019-09-06 10:37:00 216.0625 [lb_av] [facility] Body Mass Index Calculated 2019-09-06 10:37:00 33.84 kg/m2 [facility] Temperature 2019-09-06 10:37:00 97.8 [degF] Method: Temporal [facility] Respiration Rate 2019-09-06 10:37:00 14 /min [facility] Heart Rate 2019-09-06 10:37:00 74 /min [facility] Height 2019-07-10 14:47:00 67 [in_us] [facility] Weight 2019-07-10 14:47:00 216 [lb_av] [facility] Body Mass Index Calculated 2019-07-10 14:47:00 33.83 kg/m2 [facility] Temperature 2019-07-10 14:47:00 98 [degF] Method: Temporal [facility] Heart Rate 2019-07-10 14:47:00 14 /min [facility] BP Systolic 2019-06-05 10:00:00 123 mm[Hg] Location: LUE; Positi on: Sitting [facility] BP Diastolic 2019-06-05 10:00:00 82 mm[Hg] Location: LUE; Positi on: Sitting [facility] Height 2019-06-05 10:00:00 67 [in_us] [facility] Weight 2019-06-05 10:00:00 216.5625 [lb_av] [facility] Body Mass Index Calculated 2019-06-05 10:00:00 33.92 kg/m2 [facility] Temperature 2019-06-05 10:00:00 97.8 [degF] Method: Temporal [facility] Heart Rate 2019-06-05 10:00:00 106 /min [facility] Respiration Rate 2019-06-05 10:00:00 14 /min [facility] Height 2019-02-13 13:50:00 67 [in_us] [facility] Weight 2019-02-13 13:50:00 223.375 [lb_av] [facility] Body Mass Index Calculated 2019-02-13 13:50:00 34.99 kg/m2 [facility] Temperature 2019-02-13 13:50:00 97.9 [degF] Method: Temporal [facility] Respiration Rate 2019-02-13 13:50:00 14 /min [facility] BP Systolic 2018-12-18 11:17:00 124 mm[Hg] Location: LUE; Positi on: Sitting [facility] BP Diastolic 2018-12-18 11:17:00 84 mm[Hg] Location: LUE; Positi on: Sitting [facility] BP Systolic 2018-12-18 10:50:00 150 mm[Hg] Location: LUE; Positi on: Sitting [facility] BP Diastolic 2018-12-18 10:50:00 80 mm[Hg] Location: LUE; Positi on: Sitting [facility] Height 2018-12-18 10:50:00 67 [in_us] [facility] Weight 2018-12-18 10:50:00 222.25 [lb_av] [facility] Body Mass Index Calculated 2018-12-18 10:50:00 34.81 kg/m2 [facility] Temperature 2018-12-18 10:50:00 96.1 [degF] Method: Temporal [facility] Heart Rate 2018-12-18 10:50:00 115 /min Location: L Brachial Artery; [facility] Respiration Rate 2018-12-18 10:50:00 16 /min Quality: [facility] Systolic 2018-08-14 14:38:00 136 mm[Hg] Location: TERRI; Positi on: Sitting [facility] BP Diastolic 2018-08-14 14:38:00 94 mm[Hg] Location: TERRI; Positi on: Sitting [facility] Heart Rate 2018-08-14 14:38:00 116 /min [facility] Height 2018-08-14 14:38:00 67 [in_us] [facility] Weight 2018-08-14 14:38:00 226.6 [lb_av] [facility] Body Mass Index Calculated 2018-08-14 14:38:00 35.49 kg/m2 [facility] Temperature 2018-08-14 14:38:00 96.2 [degF] Method: Temporal [facility] Respiration Rate 2018-08-14 14:38:00 14 /min [facility] BP Systolic 2018-06-11 12:40:00 107 mm[Hg] Location: TERRI; Positi on: Sitting [facility] BP Diastolic 2018-06-11 12:40:00 71 mm[Hg] Location: TERRI; Positi on: Sitting [facility] Height 2018-06-11 12:40:00 67 [in_us] [facility] Weight 2018-06-11 12:40:00 225.2 [lb_av] [facility] Body Mass Index Calculated 2018-06-11 12:40:00 35.27 kg/m2 [facility] Heart Rate 2018-06-11 12:40:00 105 /min [facility] Temperature 2018-06-11 12:40:00 96.9 [degF] Method: Temporal [facility] Respiration Rate 2018-06-11 12:40:00 16 /min [facility] BP Systolic 2018-05-24 14:00:00 115 mm[Hg] Location: LUE; Positi on: Sitting [facility] BP Diastolic 2018-05-24 14:00:00 75 mm[Hg] Location: LUE; Positi on: Sitting [facility] Temperature 2018-05-24 14:00:00 97.6 [degF] Method: Temporal [facility] Weight 2018-05-24 14:00:00 227 [lb_av] [facility] Body Mass Index Calculated 2018-05-24 14:00:00 35.55 kg/m2 [facility] Height 2018-05-24 14:00:00 67 [in_us] [facility] Respiration Rate 2018-05-24 14:00:00 16 /min [facility] Heart Rate 2018-05-24 14:00:00 108 /min [facility] BP Systolic 2018-03-02 10:37:00 137 mm[Hg] Location: LUE; Positi on: Sitting [facility] BP Diastolic 2018-03-02 10:37:00 81 mm[Hg] Location: LUE; Positi on: Sitting [facility] Height 2018-03-02 10:37:00 67 [in_us] [facility] Weight 2018-03-02 10:37:00 222.3125 [lb_av] [facility] Body Mass Index Calculated 2018-03-02 10:37:00 34.82 kg/m2 [facility] Temperature 2018-03-02 10:37:00 97.5 [degF] Method: Temporal [facility] Heart Rate 2018-03-02 10:37:00 96 /min Location: L Brachial Artery; [facility] Respiration Rate 2018-03-02 10:37:00 16 /min Quality: [facility] Procedures Procedure Date / Time Performed Performing Clinician Sourc e [QL] CMP W/EGFR 2020-04-07 00:00:00 [place] [facility] [place] [facility] [QL] HEMOGLOBIN A1c 2020-04-07 00:00:00 [facility] [QL] TSH, 3RD GENERATION W/REFLEX TO FT4 2020-04-07 00:00:00 [facility] [QL] MICROALBUMIN, RANDOM URINE (W/CREATININE) 2020-04-07 00:00: 00 [facility] [Q] LIPID PANEL WITH REFLEX TO DIRECT LDL 2020-04-07 00:00:00 [facility] [QL] CBC (INCLUDES DIFF/PLT) 2020-04-07 00:00:00 [facility] [Q] HIV-1/2 Antigen and Antibodies, Fourth Generation, with Reflexes 2020-04-07 00:00:00 [facility] [QL] URINALYSIS, COMPLETE 2020-01-24 00:00:00 [facility] [[facility]] CULTURE, URINE, ROUTINE 2020-01-24 00:00:00 [facility] [QL] URINALYSIS, COMPLETE 2020-01-24 00:00[facility]00 [facility] [[facility]] CULTURE, URINE, ROUTINE 2020-01-24 00:00:00 [facility] [QLH] CULTURE, URINE, ROUTINE 2020-01-23 00:00:00 [facility] [QL] URINALYSIS, COMPLETE 2020-01-23 00:00:00 [facility] [QL] CULTURE, URINE, ROUTINE 2020-01-23 00:00:00 [facility] [QL] URINALYSIS, COMPLETE 2020-01-23 00:00[facility]00 [facility] [QL] CULTURE, URINE, ROUTINE 2020-01-13 00:00:00 [facility] [QL] URINALYSIS, COMPLETE 2020-01-13 00:00:00 [facility] COLOGUARD 2019-12-30 00:00:00 [place] [facility] [QLH] CMP W/EGFR 2019-12-30 00:00:00 [facility] [QL] TSH, 3RD GENERATION W/REFLEX TO FT4 2019-12-30 00:00:00 [facility] [QL] CULTURE, URINE, ROUTINE 2019-12-30 00:00:00 [facility] [Q] FECAL GLOBIN BY IMMUNOCHEM. (MEDICARE) 2019-11-27 00:00:00 [facility] [QLH] CA 125 2019-10-07 00:00:00 [facility] [place] [facility] US Pelvis with Pelvis Transvaginal [id number] 2019-10-07 00:00:00 [facility] [Q] SUREPATH PAP AND HR HPV DNA 2019-09-19 00:00:00 [facility] [place] [facility] MA Breast mammogram screen bilateral [id number] 2019-09-19 00:00:00 [facility] [place] [facility] MA Bone Density DXA [employer] Energy [id number] 2019-09-19 00:00:00 [facility] [Q] FECAL GLOBIN BY IMMUNOCHEM. (MEDICARE) 2019-09-06 00:00:00 [facility] [QLH] URINALYSIS, COMPLETE W/REFLEX TO CULTURE 2019-07-26 00:00: 00 [facility] [QLH] URINALYSIS, COMPLETE W/REFLEX TO CULTURE 2019-07-22 00:00: 00 [facility] [QLH] URINALYSIS, COMPLETE W/REFLEX TO CULTURE 2019-07-10 00:00: 00 [facility] [QL] CBC (INCLUDES DIFF/PLT) 2019-05-13 00:00:00 [facility] [QLH] FERRITIN 2019-05-13 00:00:00 [facility] [QLH] HEMOGLOBIN A1c 2019-04-04 00:00:00 [facility] XRAY Knee 4+ views unilateral [id number] 2019-02-13 00:00:00 [facility] [QH] LIPID PANEL WITH REFLEX TO DIRECT LDL 2018-12-18 00:00:00 [facility] [QLH] CMP W/EGFR 2018-12-18 00:00:00 [facility] [QL] TSH, 3RD GENERATION W/REFLEX TO FT4 2018-12-18 00:00:00 [facility] [QL] CBC (INCLUDES DIFF/PLT) 2018-12-18 00:00:00 [facility] [QLH] CULTURE, URINE, ROUTINE 2018-08-14 00:00:00 [facility] [QL] CULTURE, URINE, ROUTINE 2018-06-11 00:00:00 [facility] [Q] FECAL GLOBIN BY IMMUNOCHEMISTRY 2018-05-24 00:00:00 [facility] [QL] HEMOGLOBIN A1c 2018-05-24 00:00:00 [facility] [QL] SED RATE BY MODIFIED WESTERGREN 2018-05-24 00:00:00 [facility] [QLH] C-REACTIVE PROTEIN 2018-05-24 00:00:00 [facility] [[facility] URINALYSIS, COMPLETE W/REFLEX TO CULTURE 2018-03-20 00:00: 00 [facility] [Q] URINALYSIS, COMPLETE W/RFL CULTURE (REFL) 2018-03-12 00:00:0 0 [facility] [QLH] CULTURE, URINE, ROUTINE 2018-03-02 00:00:00 [facility] History of Tonsillectomy With Adenoidectomy [facility] History of Appendectomy [facility] History of Dilation And Curettage [facility] History of Knee Surgery [facility] History of Tubal Ligation [facility] History of Hysterectomy robotic [facility] History of Salpingo-oophorectomy bilateral [facility] Plan of Care Planned Activity Planned Date Details Comments Source Diagnostic Test Pending 2020-01-24 00:00:00 [QL] URINALYSIS, COMPLETE [code = [QL] URINALYSIS, COMPLETE] [facility] Diagnostic Test Pending 2020-01-24 00:00:00 [QL] CULTURE, UR INE, ROUTINE [code = [QL] CULTURE, URINE, ROUTINE] [facility] Diagnostic Test Pending 2019-09-19 00:00:00 [Q] SUREPATH PAP AND HR HPV DNA [code = [Q] SUREPATH PAP AND HR HPV DNA] [facility] Diagnostic Test Pending 2018-03-20 00:00:00 [QLH] URINALYSIS , COMPLETE W/REFLEX TO CULTURE [code = [QLH] URINALYSIS, COMPLETE W/REFLEX TO CULTURE] [facility] Future Scheduled Test 2014-01-13 15:27:32 Plan of Care [code = 1877 6-5] [facility] Future Scheduled Test 2013-12-31 15:18:11 Plan of Care [code = 1877 6-5] [facility] Future Scheduled Test 2013-12-05 15:46:52 Plan of Care [code = 1877 6-5] [facility] Encounters Start Date/Time End Date/Time Encounter [facility] Ad[facility] Encounter ID Source 2020-02-03 08:59:06 Outpatient MHSE MHSE [id number] [facility] 2020-04-07 13:00:00 2020-04-07 13:00:00 Appointment; VICKI ALEXANDRA A PRN ELLIS, MARK, APRN UTP [facility] [id number] [facility] 2020-03-23 10:15:00 2020-03-23 10:15:00 Appointment; VICKI ALEXANDRA A PRN ELLIS, MARK, APRN UTP [facility] [id number] [facility] 2020-02-04 08:00:00 2020-02-04 08:00:00 Appointment; FACILITIES MAINTENANCE ENGINEER-ONCOLOGY, PROVIDER FACILITIES MAINTENANCE ENGINEER-ONCOLOGY, PROVIDER [facility] [id number] [facility] 2020-01-13 10:40:00 2020-01-13 10:40:00 Appointment; SORIN LEOS M.D. LUCCI, JOSEPH, M.D. [facility] Gynecologic Oncology [facility] [id number] [facility] 2019-12-31 12:00:00 2019-12-31 12:00:00 Outpatient MHSE [id number] [facility] 2019-12-31 07:30:00 2019-12-31 07:30:00 Appointment; SORIN LEOS M.D. LUCCI, JOSEPH, M.D. [facility] [id number] [facility] 2019-12-30 15:15:00 2019-12-30 15:15:00 Appointment; VICKI ALEXANDRA A PRN ELLIS, MARK, APRN [facility], [address] [id number] [facility] 2019-12-09 10:20:00 2019-12-09 10:20:00 Appointment; SORIN LEOS M.D. LUCCI, JOSEPH, M.D. [facility] [id number] [facility] 2019-11-18 12:20:00 2019-11-18 12:20:00 Appointment; SORIN LEOS M.D. LUCCI, JOSEPH, M.D. [facility] Gynecologic Oncology [facility] [id number] [facility] 2019-11-11 09:00:2019-11-11 09:00:00 Appointment; FACILITIES MAINTENANCE ENGINEER-ONCOLOGY, PROVIDER FACILITIES MAINTENANCE ENGINEER-ONCOLOGY, PROVIDER [facility] [id number] [facility] 2019-10-29 11:30:00 2019-10-29 11:30:00 Appointment; SORIN LEOS M.D. LUCCI, JOSEPH, M.D. [facility] [id number] [facility] 2019-10-07 11:00:00 2019-10-07 11:00:00 Appointment; SORIN LEOS M.D. LUCCI, JOSEPH, M.D. [facility] Gynecologic Oncology [facility] [id number] [facility] 2019-09-19 10:00:00 2019-09-19 10:00:00 Appointment; WILLIS MENDEZ P.A. CAMPOS, BERTHA, P.A. [facility] [id number] [facility] 2019-09-06 10:30:00 2019-09-06 10:30:00 Appointment; VICKI ALEXANDRA A PRN ELLIS, MARK, APRN [facility], [address] [id number] [facility] 2019-07-10 14:30:00 2019-07-10 14:30:00 Appointment; VICKI ALEXANDRA A PRN ELLIS, MARK, APRN U[facility], [address] [id number] [facility] 2019-06-17 15:44:00 2019-06-17 18:19:00 Departed Emergency Room [facility] [id number] [facility] 2019-06-05 10:00:00 2019-06-05 10:00:00 Appointment; VICKI ALEXANDRA A PRN ELLIS, MARK, APRN [facility] [id number] [facility] 2019-02-13 13:30:00 2019-02-13 13:30:00 Appointment; VICKI ALEXANDRA A PRN ELLIS, MARK, APRN [facility], [address] [id number] [facility] 2019-01-31 14:15:00 2019-01-31 14:15:00 Appointment; VICKI ALEXANDRA A PRN ELLIS, MARK, APRN [facility] [id number] [facility] 2018-12-18 11:00:00 2018-12-18 11:00:00 Appointment; VICKI ALEXANDRA A PRN ELLIS, MARK, APRN [facility] [address] [id number] [facility] 2018-08-14 14:30:00 2018-08-14 14:30:00 Appointment; WILLIS MENDEZ P.A. CAMPOS, BERTHA, P.A. [facility] [address] [id number] [facility] 2018-06-11 12:30:00 2018-06-11 12:30:00 Appointment; WILLIS MENDEZ P.A. CAMPOS, BERTHA, P.A. [facility] [address] [id number] [facility] 2018-05-24 14:00:00 2018-05-24 14:00:00 Appointment; VICKI ALEXANDRA A PRN ELLIS, MARK, APRN UTP [facility] [address] [id number] [facility] 2018-03-02 10:45:00 2018-03-02 10:45:00 Appointment; KENNETH AGGARWAL APRN HOANG, CHRISTINA, APRN UTP [facility] [address] [id number] [facility] 2018-01-18 14:00:00 2018-01-18 14:00:00 Appointment; VICKI ALEXANDRA A PRN ELLIS, MARK, APRN UTP [facility] [id number] [facility] 2018-01-04 13:30:00 2018-01-04 13:30:00 Appointment; VICKI ALEXANDRA A PRN ELLIS, MARK, APRN [facility] [id number] [facility] 2017-11-23 18:15:00 2017-11-23 18:15:00 Appointment; APRIL BAEZ M.D. [place], HUBERT, M.D. [facility] UTP [id number] [facility] 2017-09-06 14:00:00 2017-09-06 14:00:00 Appointment; DAYNA ENRIQUEZ M.D. VAZQUEZ, NOEMI, M.D. [facility] UTP [id number] [facility] 2017-07-25 14:00:00 2017-07-25 14:00:00 Appointment; VICKI ALEXANDRA N P ELLIS, MARK, NP UTP UTP [id number] [facility] 2017-03-03 13:15:00 2017-03-03 13:15:00 Appointment; VICKI ALEXANDRA N P ELLIS, MARK, NP UTP UTP [id number] [facility] 2016-10-12 11:15:00 2016-10-12 11:15:00 Appointment; VICKI ALEXANDRA N P ELLIS, MARK, NP UTP UTP [id number] [facility] 2016-06-24 13:00:00 2016-06-24 13:00:00 Appointment; VICKI ALEXANDRA N P ELLIS, MARK, NP UTP UTP [id number] [facility] 2016-04-26 10:45:00 2016-04-26 10:45:00 Appointment; QUYEN HOBBS P.A. CRUZ, LETICIA, P.A. UTP UTP [id number] [facility] 2014-01-13 09:27:33 2014-01-13 09:27:32 Outpatient MHIE MHIE [id number] 2013-12-31 09:18:11 2013-12-31 09:18:11 Outpatient MHIE MHIE [id number] 2013-12-17 10:35:08 2013-12-17 10:35:08 Outpatient MHIE MHIE [id number] 2013-12-10 09:50:52 2013-12-10 09:50:52 Outpatient MHIE MHIE [id number] 2013-12-06 14:16:40 2013-12-06 14:16:39 Outpatient MHIE MHIE [id number] 2013-12-05 09:46:53 2013-12-05 09:46:52 Outpatient MHIE MHIE [id number] 2013-12-05 08:45:00 2013-12-05 08:45:00 Appointment; VICKI ALEXANDRA N P ELLIS, MARK, NP UTP [facility] 1 [id number] [facility] Results Test Description Test Time Test Comments Results Result Comments Source [Q] LIPID PANEL WITH REFLEX TO DIRECT LDL 2020-04-23 09:32:0 0 Test Item CHOLESTEROL, TOTAL; Normal (test code = 2093-3) 122 mg/dl <200 N HDL CHOLESTEROL; Below Low Threshold (test code = 2085-9) 36 mg/dl > OR = 50 TRIGLYCERIDES; Normal (test code = 2571-8) 95 mg/dl <150 N LDL-CHOLESTEROL; Normal (test code = 13711-1) 68 {MG/DL LULY} N Reference range: <100 Desirable range <100 mg/dL for primary prevention; <70 mg/dL for patients with CHD or diabetic patients with > or = 2 CHD risk factors. LDL-C is now calculated using the Ranjith-Barker calculation, which is a validated novel method providing better accuracy than the Friedewald equation in the estimation of LDL-C. Ranjith SS et al. MARYLIN. 2013;310(19): 8984-6106 (http ://education.[employer]/faq/AFZ813) CHOL/HDLC RATIO (test code = CHOL/HDLC RATIO) 3.4 {CALC} <5.0 N NON HDL CHOLESTEROL (test code = NON HDL CHOLESTEROL) 86 {MG/DL CA L} <130 N For patients with diabetes plus 1 major ASCVD risk factor, treating to a non-HDL-C goal of <100 mg/dL (LDL-C of <70 mg/dL) is considered a therapeutic option. [facility][QL] MICROALBUMIN, RANDOM URINE (W/CREATININE) 2020-04-23 09:32:00* Test Item Value Reference Range Interpretation Comments CREATININE, RANDOM URINE (test code = CREATININE, RANDOM URI NE) 163 mg/dl 20-275 N MICROALBUMIN (test code = MICROALBUMIN) 3.3 mg/dl N Reference RangeNot established MICROALBUMIN/CREATININE RATIO, RANDOM UR INE (test code = MICROALBUMIN/CREATININE RATIO, RANDOM URINE) 20 {MCG/MG CRE} <30 N The ADA de fines abnormalities in albuminexcretion as follows: Category Result (mcg/mg creatinine) Normal <30Microalbuminuria 30-299 Clinical albuminuria > OR = 300 The ADA recommends that at least two of threespecimens collected within a 3-6 month period beabnormal before considering a patient to bewithin a diagnostic category. [facility][Q] HIV-1/2 Antigen and Antibodies, Fourth Generation, with Avtruwrk1911-14-25 09:32:00* Test Item Value Reference Range Interpretation Comments HIV AG/AB, 4TH GEN; Normal (test code = 24824-5) NON-REACTIVE NON-R EACTIVE N HIV-1 antigen and HIV-1/HIV-2 antibodies were notdetected. There is no laboratory evidence of HIVinfection. PLEASE NOTE: This information has been disclosed toyou from records whose confidentiality may beprotected by state law. If your state requires suchprotection, then the state law prohibits you frommaking any further disclosure of the informationwithout the specific written consent of the personto whom it pertains, or as otherwise permitted by law.A general authorization for the release of medical orother information is NOT sufficient for this purpose. For additional information please refer t Pag[employer]p://education.[employer]/faq/ACX728(This link is being provided for informational/educational purposes only.) The performance of this assay has not been clinicallyvalidated in patients less than 2 years old. [facility][QL] CMP W/[id number] 09:32:00* Test Item Value Reference Range Interpretation Comments GLUCOSE; Above High Threshold (test code = 1547-9) 169 mg/dl 65- 99 Fasting reference interval For someone without known diabetes, a glucosevalue >125 mg/dL indicates that they may havediabetes and this should be confirmed with afollow- up test. UREA NITROGEN (BUN) (test code = UREA NITROGEN (BUN)) 10 mg/dl 7-25 N CREATININE (test code = CREATININE) 0.71 mg/dl 0.50-0.99 N For patients >49 years of age, the reference limitfor Creatinine is approximately 13% higher for peopleidentified as -Angolan. eGFR NON-AFR. ESTONIAN (test code = eGFR NON-AFR. ESTONIAN) 89 {ML/MIN/1.7} > OR = 60 N eGFR (test code = eGFR ) 10 3 {ML/MIN/1.7} > OR = 60 N BUN/CREATININE RATIO (test code = BUN/CREATININE RATIO) NOT APPLICA BLE 6-22 SODIUM (test code = SODIUM) 138 mmol/L 135-146 N POTASSIUM (test code = POTASSIUM) 4.6 mmol/L 3.5-5.3 N CHLORIDE (test code = CHLORIDE) 100 mmol/L 98-110 N CARBON DIOXIDE (test code = CARBON DIOXIDE) 30 mmol/L 20-32 N CALCIUM (test code = CALCIUM) 9.7 mg/dl 8.6-10.4 N PROTEIN, TOTAL (test code = PROTEIN, TOTAL) 7.4 g/dl 6.1-8.1 N ALBUMIN (test code = ALBUMIN) 4.2 g/dl 3.6-5.1 N GLOBULIN (test code = GLOBULIN) 3.2 {G/DL CALC} 1.9-3.7 N ALBUMIN/GLOBULIN RATIO (test code = ALBUMIN/GLOBULIN RATIO) 1.3 {CALC} 1.0-2.5 N BILIRUBIN, TOTAL; Normal (test code = 42159-4) 0.7 mg/dl 0.2-1.2 N ALKALINE PHOSPHATASE (test code = ALKALINE PHOSPHATASE) 88 u/l 37-153 N AST; Above High Threshold (test code = 1916-6) 48 u/l 10-35 ALT; Above High Threshold (test code = 1742-6) 38 u/l 6-29 [facility][QL] CBC (INCLUDES DIFF/PLT)2020-04-23 09:32:00* Test Item Value Reference Range Interpretation Comments WHITE BLOOD CELL COUNT (test code = WHITE BLOOD CELL COUNT) 11.0 {Thousand/u} 3.8-10.8 RED BLOOD CELL COUNT (test code = RED BLOOD CELL COUNT) 4.82 {Million/uL} 3.80-5.10 N HEMOGLOBIN; Below Low Threshold (test code = 89996-8) 11.3 g/dl 11.7-15.5 HEMATOCRIT; Normal (test code = 4544-3) 36.7 % 35.0-45.0 N MCV; Below Low Threshold (test code = 787-2) 76.1 fL 80.0-100. 0 MCHC; Below Low Threshold (test code = 76885-5) 30.8 g/dl 32.0-3 6.0 RDW; Above High Threshold (test code = 788-0) 15.4 % 11.0-15. 0 PLATELET COUNT; Normal (test code = 777-3) 315 {Thousand/u} 140-400 N MPV; Normal (test code = 39880-7) 10.5 fL 7.5-12.5 N ABSOLUTE NEUTROPHILS (test code = ABSOLUTE NEUTROPHILS) 8019 {cells/uL} 9966-7097 ABSOLUTE LYMPHOCYTES (test code = ABSOLUTE LYMPHOCYTES) 2277 {cells/uL} 850-3900 N ABSOLUTE MONOCYTES (test code = ABSOLUTE MONOCYTES) 550 {cells/uL} 200-950 N ABSOLUTE EOSINOPHILS (test code = ABSOLUTE EOSINOPHILS) 77 {cells/u L} 15-500 N ABSOLUTE BASOPHILS (test code = ABSOLUTE BASOPHILS) 77 {cells/uL} 0 -200 N NEUTROPHILS (test code = NEUTROPHILS) 72.9 % N LYMPHOCYTES (test code = LYMPHOCYTES) 20.7 % N MONOCYTES; Normal (test code = 71971-1) 5.0 % N EOSINOPHILS; Normal (test code = 13224-9) 0.7 % N BASOPHILS; Normal (test code = 84647-3) 0.7 % N [facility][] TSH, 3RD GENERATION W/REFLEX TO [id number] 09:32:00* Test Item Value Reference Range Interpretation Comments TSH, 3RD GENERATION W/REFLEX TO FT4 (clement t code = TSH, 3RD GENERATION W/REFLEX TO FT4) 0.79 {MIU/L} 0.40-4.50 N [facility][QL] HEMOGLOBIN [id number] 09:32:00* Test Item Value Reference Range Interpretation Comments HEMOGLOBIN A1c; Above High Threshold (test code = 4548-4) 7.4 {% of total} <5.7 For someone without known diabetes, a he [facility] Y9buvcgx of 6.5% or greater indicates that they may have diabetes and this should be confirmed with a follow-up test. For someone with known diabetes, a value <7% indicates that their diabetes is well controlled and a value greater than or equal to 7% indicates suboptimal control. A1c targets should be individualized based on duration of diabetes, age, comorbid conditions, and other considerations. Currently, no consensus exists regarding use ofhemoglobin A1c for diagnosis of diabetes for children. [facility]] URINALYSIS, [id number] 07:40:01* Test Item Value Reference Range Interpretation Comments UA Turbidity; Abnormal (test code = 85300-7) Marked Clear A UA Spec Grav (test code = 5810-7) 1.016 <=1.030 UA pH (test code = 5803-2) 7.0 5.0-8.0 UA Protein (test code = 51838-2) Negative Negative UA Glucose (test code = 84456-4) Negative Negative UA Ketones (test code = 14202-2) Negative Negative UA Bili (test code = 5770-3) Negative Negative UA Blood (test code = 5794-3) Negative Negative UA Nitrite (test code = 5802-4) Negative Negative UA Leuk Est (test code = 5799-2) Negative Negative UA RBC (test code = 90866-9) 2 {/HPF} 0-2 UA WBC (test code = 28934-2) 3 {/HPF} 0-5 UA Bacteria; Abnormal (test code = 20694-7) Many None Seen A UA Mucus (test code = 8247-9) Few None Seen UA Sq Epi; Abnormal (test code = 34391-9) Moderate Few A Urine Calcium Oxalate Crystal (test code = 5774-5) Few Non e Seen UA Color (test code = 5778-6) Adia UROBILINOGEN (test code = 86910-1) <=1.0 0.1-1.0 [facility][O] Hemoglobin A1c (in office)2019-12-30 15:33:00 * Test Item Value Reference Range Interpretation Comments HEMOGLOBIN A1c; Abnormal (test code = 4548-4) 7.0 A [facility][O] Urine Dipstick (In Office)2019-12-30 15:30:00 * Test Item Value Reference Range Interpretation Comments Glucose (test code = Glucose) unable to determine LEUKOCYTES (test code = LEUKOCYTES) unable to determine NITRITE; Abnormal (test code = 09609-7) positive A UROBILINOGEN (test code = 88158-7) unable to determine PROTEIN (test code = 83091-2) unable to determine pH (test code = pH) 5 URINE BLOOD; Abnormal (test code = 83019-5) about 250 A SPECIFIC GRAVITY (test code = 2965-2) 1.015 KETONES (test code = 02858-6) unable to determine BILIRUBIN (test code = 93494-6) unable to determine COLOR URINE; Abnormal (test code = 5778-6) orange A APPEARANCE; Normal (test code = 5767-9) clear N COMMENT (test code = COMMENT) PATIENT TOOK AZO THIS AM [facility]] CULTURE, URINE, [id number] 00:00:00* Test Item Value Reference Range Interpretation Comments CULTURE (test code = CULTURE) See Comment CULTURE, URINE, ROUTINE Micro Number: [id number] Test Status: Final Specimen Source: URINE Specimen Quality: Adequate Result: No Growth [facility][] FECAL GLOBIN BY IMMUNOCHEM. (MEDICARE) 2019-10-14 00:00:00* Test Item Value Reference Range Interpretation Comments [id number] (test code = 17812-5) See Comment FECAL GLOBIN BY IMMUNOCHEM. (MEDICARE) Micro Number: [id number] Test Status: Final Specimen Source: INSURE () FOBT TEST CARD Specimen Quality: Inadequate Fecal Globin: Test not performed. Unsuitable for analysis due to the age of the specimen. [facility]] CA [id number] 12:55:01* Test Item Value Reference Range Interpretation Comments Cancer Antigen 125 (test code = 78408-7) 21.1 U/ml 0.0-35.0 [facility] Bone Density [employer] [id number] 13:41:00BONE DENSITY ASSESSMENT: 10/02/2019CLINICAL DATA: Post menopausal and clinical risk for osteoporosis. Z78.0asymptomatic postmenopausal state. Z78.0 Asymptomatic Menopausal State/Z78.0 Asymptomatic Menopausal StateRISK FACTORS: race. FINDINGS:Bone density evaluation was performed 10/02/2019 on the right femur neck usinga Hologic unit. The BMD average for the exam is 0.839 g/cm2. The T-score is-0.10 and the Z-score is 1.50. This matches the World Health Organization'scriteria for normal bone density and places the patient within normal limits offracture risk. An additional bone density evaluation was performed 10/02/2019 on the leftfemur neck using a Hologic unit. The BMD average for the exam is 0.814 g/cm2.The T-score is -0.30 and the Z- score is 1.20. This matches the World HealthOrganization's criteria for normal bone density and places the patient withinnormal limits of fracture risk. An additional bone density evaluation was performed 10/02/2019 on the right hipusing a Hologic unit. The BMD average for the exam is 0.941 g/cm2. The Z- scoreis 1.30. Complete risk assessment of this region was not determined. An additional bone density evaluation was performed 10/02/2019 on the left hipusing a Hologic unit. The BMD average for the exam is 0.981 g/cm2. The T-scoreis 0.30 and the Z-score is 1.60. This matches the World Health Organization'scriteria for normal bone density and places the patient within normal limits offracture risk. An additional bone density evaluation was per formed 10/02/2019 on the AP L1-V3iywejj of spine using a Hologic unit. The BMD a verage for the exam is 1.097 g/cm2. The T-score is 0.50 and the Z-score is 2.30. This matches the WorldHealth Organization's criteria for normal bone density a nd places the patientwithin normal limits of fracture risk. IMPRESSION: BONE DEN SITY WITHIN NORMAL LIMITSPatient is at normal risk for fracture. Patient consul t w/primary careprovider is recommended. This exam was interpreted at [id number] for [place], [place] 15. Nemo Banks M.D. ms/penrad:10/03/2019 08:38:11 Imaging T echnologist(s): Chayo Baker RT(R)(M), [facility]--Read by: Nemo Soaresictated Date/time: 10/03/19 08:38Electronically Signed by: Nemo Banks MD 10/03/1908:38[facility]Un[facility] Digital Mammo Screening Neftali [id number] 13:41:00 BILATERAL DIGITAL SCREENING MAMMOGRAM WITH CAD: 10/02/2019CLINICAL: Z12.31 Encou nter For Screening Mammogram For Malignant Neoplasm OfBreast/Z12.31 Encounter Fo r Screening Mammogram For Malignant Neoplasm OfBreast. Current study was evaluat ed with a Computer Aided Detection (CAD) system. COMPARISON:Comparison is made t o exams dated: 02/22/2016 mammogram and 04/20/2013mammogram - [facility]. TECHNIQUE: Mammographic views were obtained using digital acquisition. C urrentstudy was also evaluated with a Computer Aided Detection (CAD) system.FIND INGS:The tissue of both breasts is heterogeneously dense, which could obscuredet ection of small masses. There are benign appearing calcifications in both breast s. No significant masses, calcifications, or other findings are seen in eitherbr east. There has been no significant interval change.IMPRESSION: BENIGNRECOMMENDA TION:There is no mammographic evidence of malignancy. A 1 yearscreening mammogra m is recommended.(10/02/2020) This exam was interpreted [id number] at [facility] [place]. Professional services are provided by the [facility].Hillary Vides M.D. sm/penrad:10/03/2019 09:50:39 [employer] Processor(s): RT Dl(R)(M), [facility] sent: BI-RADS 1/2 Dense Mammogram BI-RADS: 2 Be nign--Read by: Hillary Vides MDDictated Date/time: 10/03/19 09:50El ectronically Signed by: Hillary Vides MD 10/03/1909:50 [facility][Q] SUREPATH PAP AND HR HPV DNA 2019-09-19 00:00:00* Test Item Value Reference Range Interpretation Comments CLINICAL INFORMATION: (test code = CLINICAL INFORMATION:) See Comme nt N Normal examOral contraceptives LMP: (test code = LMP:) See Comment N NONE GIVEN PREV. PAP: (test code = PREV. PAP:) See Comment N 2015 PREV. BX: (test code = PREV. BX:) See Comment N NONE GIVEN SOURCE: (test code = SOURCE:) See Comment N [employer] STATEMENT OF ADEQUACY: (test code = STATEMENT OF ADEQUACY:) See Com ment N Satisfactory for evaluation.Endocervical/transformation zone componentpresent. GENERAL CATEGORIZATION:; Abnormal (test code = 20812-6) See Comment A EPITHELIAL CELL ABNORMALITY INTERPRETATION/RESULT:; Abnormal (test code = 10822-4) See Comment A Atypical Glandular Cells COMMENT:; Normal (test code = 12680-7) See Comment N Suggest clinical correlation and follow-up asclinically appropriate OIL MIXER: (test code = OIL MIXER:) See Comment N AMT, CT(ASCP)CT screening location: [place] [address] [address], [place] [id number] PATHOLOGIST: (test code = PATHOLOGIST:) See Comment N Betty Rao M.D.Board Certified In Anatomic Pathology,Clinical Pathology and Cytopathology,[phone] (electronic signature) HPV mRNA E6/E7, SUREPATH VIAL (test code = HPV mRNA E6 /E7, SUREPATH VIAL) Not Detected NOT DETECTED N This test was perfor med using the APTIMA HPV Assay ([employer] This assay detects E6/E7 viral messenger RNA (mRNA) from 14high- risk HPV types (16,18,31,33,35,39,45,51,52,56,58,59,66,68).The analytical performance characteristics ofthis assay, when used to test SurePath specimens,have been determined by [employer] [facility]] MICROALBUMIN, RANDOM URINE (W/CREATININE) 2019-09-06 12:21:00* Test Item Value Reference Range Interpretation Comments CREATININE, RANDOM URINE (test code = CREATININE, RANDOM URI NE) 100 mg/dl 20-275 N MICROALBUMIN (test code = MICROALBUMIN) 1.1 mg/dl N Reference RangeNot established MICROALBUMIN/CREATININE RATIO, RANDOM UR INE (test code = MICROALBUMIN/CREATININE RATIO, RANDOM URINE) 11 {MCG/MG CRE} <30 N The ADA de fines abnormalities in albuminexcretion as follows: Category Result (mcg/mg creatinine) Normal <30Microalbuminuria 30-299 Clinical albuminuria > OR = 300 The ADA recommends that at least two of threespecimens collected within a 3-6 month period beabnormal before considering a patient to bewithin a diagnostic category. [facility]] CMP [id number] 12:21:00* Test Item Value Reference Range Interpretation Comments GLUCOSE; Normal (test code = 1547-9) 122 mg/dl 65-139 N Non-fasting reference interval UREA NITROGEN (BUN) (test code = UREA NITROGEN (BUN)) 12 mg/dl 7-25 N CREATININE (test code = CREATININE) 0.70 mg/dl 0.50-0.99 N For patients >49 years of age, the reference limitfor Creatinine is approximately 13% higher for peopleidentified as -Angolan. eGFR NON- (test code = eGFR NON-ANIKA N ESTONIAN) 91 {ML/MIN/1.7} > OR = 60 N eGFR (test code = eGFR ) 10 5 {ML/MIN/1.7} > OR = 60 N BUN/CREATININE RATIO (test code = BUN/CREATININE RATIO) NOT APPLICA BLE 6-22 SODIUM (test code = SODIUM) 137 mmol/L 135-146 N POTASSIUM (test code = POTASSIUM) 4.5 mmol/L 3.5-5.3 N CHLORIDE (test code = CHLORIDE) 98 mmol/L 98-110 N CARBON DIOXIDE (test code = CARBON DIOXIDE) 29 mmol/L 20-32 N CALCIUM (test code = CALCIUM) 10.2 mg/dl 8.6-10.4 N PROTEIN, TOTAL (test code = PROTEIN, TOTAL) 7.5 g/dl 6.1-8.1 N ALBUMIN (test code = ALBUMIN) 4.3 g/dl 3.6-5.1 N GLOBULIN (test code = GLOBULIN) 3.2 {G/DL CALC} 1.9-3.7 N ALBUMIN/GLOBULIN RATIO (test code = ALBUMIN/GLOBULIN RATIO) 1.3 {CALC} 1.0-2.5 N BILIRUBIN, TOTAL; Normal (test code = 60649-8) 0.6 mg/dl 0.2-1.2 N ALKALINE PHSPHATASE (test code = ALKALINE PHSPHATASE) 63 u/l 33-130 N AST; Above High Threshold (test code = 1916-6) 52 u/l 10-35 ALT; Above High Threshold (test code = 1742-6) 49 u/l 6-29 [facility]] HEMOGLOBIN [id number] 12:21:00* Test Item Value Reference Range Interpretation Comments HEMOGLOBIN A1c; Above High Threshold (test code = 4548-4) 6.7 {% of total} <5.7 For someone without known diabetes, a he moglobin C0mimfxe of 6.5% or greater indicates that they may have diabetes and this should be confirmed with a follow-up test. For someone with known diabetes, a value <7% indicates that their diabetes is well controlled and a value greater than or equal to 7% indicates suboptimal control. A1c targets should be individualized based on duration of diabetes, age, comorbid conditions, and other considerations. Currently, no consensus exists regarding use ofhemoglobin A1c for diagnosis of diabetes for children. [facility]] URINALYSIS, COMPLETE W/REFLEX TO CULTURE 2019-07-22 13:57:00* Test Item Value Reference Range Interpretation Comments COLOR; Normal (test code = 5778-6) DARK YELLOW YELLOW N APPEARANCE (test code = APPEARANCE) CLEAR CLEAR N SPECIFIC GRAVITY; Normal (test code = 2965-2) 1.024 1.001-1. 035 N PH; Normal (test code = 2756-5) 6.0 5.0-8.0 N GLUCOSE; Normal (test code = 1547-9) NEGATIVE NEGATIVE N BILIRUBIN; Normal (test code = 27422-0) NEGATIVE NEGATIVE N KETONES; Abnormal (test code = 50139-7) TRACE NEGATIVE A OCCULT BLOOD; Abnormal (test code = 53918-5) TRACE NEGATIVE A PROTEIN; Abnormal (test code = 69688-5) TRACE NEGATIVE A NITRITE (test code = NITRITE) POSITIVE NEGATIVE A LEUKOCYTE ESTERASE (test code = LEUKOCYTE ESTERASE) 2+ NE GATIVE A WBC; Abnormal (test code = 6690-2) 10-20 < OR = 5 A RBC; Normal (test code = 789-8) 0-2 < OR = 2 N SQUAMOUS EPITHELIAL CELLS; Abnormal (test code = 60304-4) 6-10 < OR = 5 A BACTERIA; Abnormal (test code = 630-4) FEW NONE SEEN A CALCIUM OXALATE CRYSTALS; Abnormal (test code = 35950-9) MODERATE NONE OR FEW A HYALINE CAST; Normal (test code = 64639-4) NONE SEEN NONE SEEN N NOTE (test code = NOTE) See Below This urine was analyzed for the presence of WBC, RBC, bacteria, casts, and other formed elements. Only those elements seen were reported. [facility][] REFLEXIVE URINE [id number] 13:57:00* Test Item Value Reference Range Interpretation Comments REFLEXIVE URINE CULTURE (test code = REFLEXIVE URINE C ULTURE) CULTURE INDICATED - RESULTS TO FOLLOW [facility]] CULTURE, URINE, [id number] 13:57:00* Test Item Value Reference Range Interpretation Comments CULTURE (test code = CULTURE) See Comment A CULTURE, URINE, ROUTINE MICRO NUMBER: [id number] TEST STATUS: FINAL SPECIMEN SOURCE: URINE SPECIMEN QUALITY: ADEQUATE RESULT: Greater than 100,000 CFU/mL of Escherichia coli (ESBL) E.coli (ESBL) INT EM AMOX/CLAVULANATE S 4 AMPICILLIN R >=32 1 AMP/SULBACTAM R >=32 CEFAZOLIN R >=64 2 CEFEPIME S 2 CEFTRIAXONE R >=64 CIPROFLOXACIN R >=4 GENTAMICIN S <=1 IMIPENEM S <=0.25 LEVOFLOXACIN R >=8 NITROFURANTOIN S <=16 PIP/TAZOBACTAM S <=4 TOBRAMYCIN S <=1 TRIMETHOPRIM/SULFA R >=320 ESBL RESULT: * 3S=Susceptible I=Intermediate R=Resistant * = Not TestedNR = Not Reported NN = See Therapy CommentsTHERAPY COMMENTS Note 1: Extended spectrum beta-lactamase (ESBL) producing organisms demonstrate decreased activity with penicillins, cephalosporins and aztreonam. Note 2: For uncomplicated UTI caused by E. coli, K. pneumoniae or P. mirabilis: Cefazolin is susceptible if EM <32 mcg/mL and predicts susceptible to the oral agents cefaclor, cefdinir, cefpodoxime, cefprozil, cefuroxime, cephalexin and loracarbef. Note 3: The organism has been confirmed as an ESBL independent video producer. [facility][O] Urine Dipstick (In Office)2019-07-10 16:29:00 * Test Item Value Reference Range Interpretation Comments Glucose (test code = Glucose) norm N LEUKOCYTES (test code = LEUKOCYTES) 75 A NITRITE; Abnormal (test code = 58133-4) pos A UROBILINOGEN; Abnormal (test code = 21741-8) 4 A PROTEIN; Abnormal (test code = 86863-8) 100 A pH (test code = pH) 5 URINE BLOOD; Normal (test code = 48609-6) neg N SPECIFIC GRAVITY (test code = 2965-2) 1.020 KETONES; Normal (test code = 16492-8) neg N BILIRUBIN; Normal (test code = 62723-2) 3 N COLOR URINE (test code = 5778-6) orange APPEARANCE (test code = 5767-9) cloudy [facility]] URINALYSIS, COMPLETE W/REFLEX TO CULTURE 2019-07-10 00:00:00* Test Item Value Reference Range Interpretation Comments COLOR; Normal (test code = 5778-6) TNP N Test not performed.No suitable specimen received. [facility]] CULTURE, URINE, [id number] 00:00:00* Test Item Value Reference Range Interpretation Comments CULTURE (test code = CULTURE) See Comment CULTURE, URINE, ROUTINE MICRO NUMBER: [id number] TEST STATUS: FINAL SPECIMEN SOURCE: URINE SPECIMEN QUALITY: ADEQUATE RESULT: Single organism less than 10,000 CFU/mL isolated. These organisms, commonly found on external and internal genitalia, are considered colonizers. No further testing performed. We received a preserved urine culture transport tube and performed a urine culture. If this is not what you intended to order, please contact your local client relations associate immediately so that we can adjust our billing appropriately. You may also inquire about alternative or additional testing. [facility] [id number] 17:31:00* Test Item Value Reference Range Interpretation Comments Urine Color (test code = 5778-6) ORANGE YELLOW [facility] [id number] 17:31:00* Test Item Value Reference Range Interpretation Comments Urine Clarity (test code = 41205-6) SL CLOUDY CLEAR [facility] [id number] 17:31:00 * Test Item Value Reference Range Interpretation Comments Urine Specific [place] (test code = 5811-5) >=1.030 1.010-1.02 5 [facility] [id number] 17:31:00* Test Item Value Reference Range Interpretation Comments Urine pH (test code = 63040-2) 6 5-7 [facility] Leukocyte [id number] 17:31:00* Test Item Value Reference Range Interpretation Comments Urine Leukocyte Esterase (test code = 36568-0) TRACE NEGATIV E [facility] [id number] 17:31:00* Test Item Value Reference Range Interpretation Comments Urine Nitrite (test code = 70018-4) POSITIVE NEGATIVE [facility] [id number] 17:31:00* Test Item Value Reference Range Interpretation Comments Urine Protein (test code = 10215-7) 1+ NEGATIVE H [facility] Glucose (UA)2019-06-17 17:31:00* Test Item Value Reference Range Interpretation Comments Urine Glucose (UA) (test code = 78866-1) 1+ NEGATIVE H [facility] [id number] 17:31:00* Test Item Value Reference Range Interpretation Comments Urine Ketones (test code = 97637-5) NEGATIVE NEGATIVE [facility] [id number] 17:31:00* Test Item Value Reference Range Interpretation Comments Urine Urobilinogen (test code = 58396-5) 4 0.2-1 [facility] [id number] 17:31:00* Test Item Value Reference Range Interpretation Comments Urine Bilirubin (test code = 1977-8) NEGATIVE NEGATIVE [facility] [id number] 17:31:00* Test Item Value Reference Range Interpretation Comments Urine Blood (test code = 06125-3) NEGATIVE NEGATIVE [facility]] CBC (INCLUDES DIFF/PLT)2019-05-28 08:07:00* Test Item Value Reference Range Interpretation Comments WHITE BLOOD CELL COUNT (test code = WHITE BLOOD CELL COUNT) 9.9 {Thousand/u} 3.8-10.8 N RED BLOOD CELL COUNT (test code = RED BLOOD CELL COUNT) 4.98 {Million/uL} 3.80-5.10 N HEMAGLOBIN; Normal (test code = 23698-2) 13.0 g/dl 11.7-15.5 N HEMATOCRIT; Normal (test code = 4544-3) 40.4 % 35.0-45.0 N MCV; Normal (test code = 787-2) 81.1 fL 80.0-100.0 N MCHC; Normal (test code = 76921-9) 32.2 g/dl 32.0-36.0 N RDW; Above High Threshold (test code = 788-0) 16.9 % 11.0-15. 0 PLATELET COUNT; Normal (test code = 777-3) 256 {Thousand/u} 140-400 N MPV; Normal (test code = 22351-1) 10.7 fL 7.5-12.5 N ABSOLUTE NEUTROPHILS (test code = ABSOLUTE NEUTROPHILS) 6673 {cells/uL} 2097-1469 N ABSOLUTE LYMPHOCYTES (test code = ABSOLUTE LYMPHOCYTES) 2505 {cells/uL} 850-3900 N ABSOLUTE MONOCYTES (test code = ABSOLUTE MONOCYTES) 554 {cells/uL} 200-950 N ABSOLUTE EOSINOPHILS (test code = ABSOLUTE EOSINOPHILS) 109 {cells/ uL} 15-500 N ABSOLUTE BASOPHILS (test code = ABSOLUTE BASOPHILS) 59 {cells/uL} 0 -200 N NEUTROPHILS (test code = NEUTROPHILS) 67.4 % N LYMPHOCYTES (test code = LYMPHOCYTES) 25.3 % N MONOCYTES; Normal (test code = 48604-6) 5.6 % N EOSINOPHILS; Normal (test code = 65558-5) 1.1 % N BASOPHILS; Normal (test code = 22682-8) 0.6 % N [facility]] [id number] 08:07:00* Test Item Value Reference Range Interpretation Comments FERRITIN (test code = FERRITIN) 27 ng/ml 16-288 N [facility]] HEMOGLOBIN [id number] 11:03:00* Test Item Value Reference Range Interpretation Comments HEMOGLOBIN A1c; Above High Threshold (test code = 4548-4) 6.9 {% of total} <5.7 For someone without known diabetes, a he moglobin K5mltzns of 6.5% or greater indicates that they may have diabetes and this should be confirmed with a follow-up test. For someone with known diabetes, a value <7% indicates that their diabetes is well controlled and a value greater than or equal to 7% indicates suboptimal control. A1c targets should be individualized based on duration of diabetes, age, comorbid conditions, and other considerations. Currently, no consensus exists regarding use ofhemoglobin A1c for diagnosis of diabetes for children. [facility][] LIPID PANEL WITH REFLEX TO DIRECT LDL 2019-02-21 09:55:00* Test Item Value Reference Range Interpretation Comments CHOLESTEROL, TOTAL; Normal (test code = 2093-3) 135 mg/dl <200 N HDL CHOLESTEROL; Below Low Threshold (test code = 2085-9) 35 mg/dl >50 TRIGLYCERIDES; Normal (test code = 2571-8) 116 mg/dl <150 N LDL-CHOLESTEROL; Normal (test code = 08860-7) 79 {MG/DL LULY} N Reference range: <100 Desirable range <100 mg/dL for primary prevention; <70 mg/dL for patients with CHD or diabetic patients with > or = 2 CHD risk factors. LDL-C is now calculated using the Brooks calculation, which is a validated novel method providing better accuracy than the Friedewald equation in the estimation of LDL-C. Ranjith SS et al. MRAYLIN. 2013;310(19): 9196-8122 (http ://education.Screen/faq/QGT781) CHOL/HDLC RATIO (test code = CHOL/HDLC RATIO) 3.9 {CALC} <5.0 N NON HDL CHOLESTEROL (test code = NON HDL CHOLESTEROL) 100 {MG/DL C AL} <130 N For patients with diabetes plus 1 major ASCVD risk factor, treating to a non-HDL-C goal of <100 mg/dL (LDL-C of <70 mg/dL) is considered a therapeutic option. [facility]] CMP [id number] 09:55:00* Test Item Value Reference Range Interpretation Comments GLUCOSE; Above High Threshold (test code = 1547-9) 164 mg/dl 65- 99 Fasting reference interval For someone without known diabetes, a glucosevalue >125 mg/dL indicates that they may havediabetes and this should be confirmed with afollow- up test. UREA NITROGEN (BUN) (test code = UREA NITROGEN (BUN)) 12 mg/dl 7-25 N CREATININE (test code = CREATININE) 0.70 mg/dl 0.50-0.99 N For patients >49 years of age, the reference limitfor Creatinine is approximately 13% higher for peopleidentified as -Angolan. eGFR NON- (test code = eGFR NON-ANIKA N ESTONIAN) 91 {ML/MIN/1.7} > OR = 60 N eGFR (test code = eGFR ) 10 5 {ML/MIN/1.7} > OR = 60 N BUN/CREATININE RATIO (test code = BUN/CREATININE RATIO) NOT APPLICA BLE 6-22 SODIUM (test code = SODIUM) 137 mmol/L 135-146 N POTASSIUM (test code = POTASSIUM) 5.2 mmol/L 3.5-5.3 N CHLORIDE (test code = CHLORIDE) 99 mmol/L 98-110 N CARBON DIOXIDE (test code = CARBON DIOXIDE) 29 mmol/L 20-32 N CALCIUM (test code = CALCIUM) 9.6 mg/dl 8.6-10.4 N PROTEIN, TOTAL (test code = PROTEIN, TOTAL) 7.2 g/dl 6.1-8.1 N ALBUMIN (test code = ALBUMIN) 4.2 g/dl 3.6-5.1 N GLOBULIN (test code = GLOBULIN) 3.0 {G/DL CALC} 1.9-3.7 N ALBUMIN/GLOBULIN RATIO (test code = ALBUMIN/GLOBULIN RATIO) 1.4 {CALC} 1.0-2.5 N BILIRUBIN, TOTAL; Normal (test code = 95323-4) 0.5 mg/dl 0.2-1.2 N ALKALINE PHSPHATASE (test code = ALKALINE PHSPHATASE) 75 u/l 33-130 N AST; Above High Threshold (test code = 1916-6) 88 u/l 10-35 ALT; Above High Threshold (test code = 1742-6) 64 u/l 6-29 [facility]] CBC (INCLUDES DIFF/PLT)2019-02-21 09:55:00* Test Item Value Reference Range Interpretation Comments WHITE BLOOD CELL COUNT (test code = WHITE BLOOD CELL COUNT) 8.4 {Thousand/u} 3.8-10.8 N RED BLOOD CELL COUNT (test code = RED BLOOD CELL COUNT) 4.69 {Million/uL} 3.80-5.10 N HEMAGLOBIN; Below Low Threshold (test code = 80717-8) 11.5 g/dl 11.7-15.5 HEMATOCRIT; Normal (test code = 4544-3) 36.9 % 35.0-45.0 N MCV; Below Low Threshold (test code = 787-2) 78.7 fL 80.0-100. 0 MCHC; Below Low Threshold (test code = 14429-9) 31.2 g/dl 32.0-3 6.0 RDW; Above High Threshold (test code = 788-0) 15.8 % 11.0-15. 0 PLATELET COUNT; Normal (test code = 777-3) 301 {Thousand/u} 140-400 N MPV; Normal (test code = 98327-2) 10.1 fL 7.5-12.5 N ABSOLUTE NEUTROPHILS (test code = ABSOLUTE NEUTROPHILS) 6107 {cells/uL} 2378-3430 N ABSOLUTE LYMPHOCYTES (test code = ABSOLUTE LYMPHOCYTES) 1789 {cells/uL} 850-3900 N ABSOLUTE MONOCYTES (test code = ABSOLUTE MONOCYTES) 361 {cells/uL} 200-950 N ABSOLUTE EOSINOPHILS (test code = ABSOLUTE EOSINOPHILS) 76 {cells/u L} 15-500 N ABSOLUTE BASOPHILS (test code = ABSOLUTE BASOPHILS) 67 {cells/uL} 0 -200 N NEUTROPHILS (test code = NEUTROPHILS) 72.7 % N LYMPHOCYTES (test code = LYMPHOCYTES) 21.3 % N MONOCYTES; Normal (test code = 20814-4) 4.3 % N EOSINOPHILS; Normal (test code = 82211-5) 0.9 % N BASOPHILS; Normal (test code = 37018-6) 0.8 % N [facility]] TSH, 3RD GENERATION W/REFLEX TO FT4 2019-02-21 09:55:00* Test Item Value Reference Range Interpretation Comments TSH, 3RD GENERATION W/REFLEX TO FT4 (clement t code = TSH, 3RD GENERATION W/REFLEX TO FT4) 1.46 {MIU/L} 0.40-4.50 N [facility] 4+ views unilateral [id number] 13:01:00Exam: Right knee x-ray, 4 viewsReason for Exam: - M25.561 Pain in right kneeComparison Exam: X-ray 12/27/2013Discussion:No fractures or dislocations are seen of the right knee. Moderateosteoarthritis seen within the medial compartment. Mild osteoarthritis seenwithin the lateral and anterior compartments. No intraosseous lesions. Noradiopaque foreign bodies.Impression:1. No acute bony abnormalities seen within the right knee.--Read by: Kemal Aden MDDictated Date/time: 02/18/19 13:47Electronically Signed by: Kemal Aden MD 02/18/1913:48FINAL [facility]Un[facility]] Hemoglobin A1c (in office)2018-12-18 11:34:00* Test Item Value Reference Range Interpretation Comments HEMOGLOBIN A1c; Abnormal (test code = 4548-4) 7.1% A [facility]] SED RATE BY MODIFIED [id number] 10:16:00* Test Item Value Reference Range Interpretation Comments SED RATE BY MODIFIED WESTERGREN (test code = SED RATE BY MODIFIED WESTERGREN) 33 mm/h < OR = 30 [facility]] C-REACTIVE [id number] 10:16:00* Test Item Value Reference Range Interpretation Comments C-REACTIVE PROTEIN (test code = C-REACTIVE PROTEIN) 21.0 mg/L <8 .0 [facility]] HEMOGLOBIN [id number] 10:16:00* Test Item Value Reference Range Interpretation Comments HEMOGLOBIN A1c; Above High Threshold (test code = 4548-4) 7.0 {% of total} <5.7 For someone without known diabetes, a he moglobin C4xmvqxk of 6.5% or greater indicates that they may have diabetes and this should be confirmed with a follow-up test. For someone with known diabetes, a value <7% indicates that their diabetes is well controlled and a value greater than or equal to 7% indicates suboptimal control. A1c targets should be individualized based on duration of diabetes, age, comorbid conditions, and other considerations. Currently, no consensus exists regarding use ofhemoglobin A1c for diagnosis of diabetes for children. [facility][O] Urine Dipstick (In Office)2018-08-14 14:48:00 * Test Item Value Reference Range Interpretation Comments Glucose (test code = Glucose) normal LEUKOCYTES (test code = LEUKOCYTES) 25 NITRITE (test code = 98234-4) positive UROBILINOGEN (test code = 17637-5) 68 PROTEIN (test code = 74244-8) 0.30 pH (test code = pH) 5 URINE BLOOD (test code = 25292-5) NEG SPECIFIC GRAVITY (test code = 2965-2) 1.025 KETONES (test code = 59014-7) NEG BILIRUBIN (test code = 80119-2) 17 [facility]] CULTURE, URINE, [id number] 00:00:00* Test Item Value Reference Range Interpretation Comments CULTURE (test code = CULTURE) See Comment CULTURE, URINE, ROUTINE MICRO NUMBER: [id number] TEST STATUS: FINAL SPECIMEN SOURCE: NOT GIVEN SPECIMEN QUALITY: ADEQUATE RESULT: Multiple organisms present, each less than 10,000 CFU/mL. These organisms, commonly found on external and internal genitalia, are considered to be colonizers. No further testing performed. [facility]] CULTURE, URINE, [id number] 00:00:00* Test Item Value Reference Range Interpretation Comments CULTURE (test code = CULTURE) See Comment CULTURE, URINE, ROUTINE MICRO NUMBER: [id number] TEST STATUS: FINAL SPECIMEN SOURCE: URINE SPECIMEN QUALITY: ADEQUATE RESULT: No Growth [facility][Q] FECAL GLOBIN BY [id number] 00:00:00* Test Item Value Reference Range Interpretation Comments FECAL GLOBIN BY IMMUNOCHEMISTRY (test code = FECAL TEDDY BIN BY IMMUNOCHEMISTRY) See Comment FECAL GLOBIN BY IMMU NOCHEMISTRY MICRO NUMBER: [id number] TEST STATUS: FINAL SPECIMEN SOURCE: INSURE (TM) FOBT TEST CARD SPECIMEN QUALITY: ADEQUATE RESULT: Not Detected [facility][O] Hemoglobin A1c (in office)2018-05-24 14:22:00 * Test Item Value Reference Range Interpretation Comments HEMOGLOBIN A1c; Abnormal (test code = 4548-4) 7.2 A [facility][Q] URINALYSIS, COMPLETE W/RFL CULTURE (REFL) 2018-03-13 09:46:00* Test Item Value Reference Range Interpretation Comments COLOR; Abnormal (test code = 5778-6) ORANGE YELLOW A APPEARANCE (test code = APPEARANCE) CLOUDY CLEAR A SPECIFIC GRAVITY; Normal (test code = 2965-2) 1.023 1.001-1. 035 N PH; Normal (test code = 2756-5) < OR = 5.0 5.0-8.0 N GLUCOSE; Abnormal (test code = 1547-9) TRACE NEGATIVE A BILIRUBIN; Normal (test code = 89973-2) NEGATIVE NEGATIVE N KETONES; Abnormal (test code = 03523-9) 1+ NEGATIVE A OCCULT BLOOD; Abnormal (test code = 60912-1) 3+ NEGATIVE A PROTEIN; Abnormal (test code = 93822-5) 1+ NEGATIVE A NITRITE (test code = NITRITE) POSITIVE NEGATIVE A LEUKOCYTE ESTERASE (test code = LEUKOCYTE ESTERASE) 3+ NE GATIVE A WBC; Abnormal (test code = 6690-2) > OR = 60 < OR = 5 A RBC; Abnormal (test code = 789-8) 40-60 < OR = 2 A SQUAMOUS EPITHELIAL CELLS; Abnormal (test code = 37342-6) 6-10 < OR = 5 A BACTERIA; Abnormal (test code = 630-4) FEW NONE SEEN A CALCIUM OXALATE CRYSTALS; Normal (test code = 55128-0) FEW NONE OR FEW N HYALINE CAST; Normal (test code = 09987-6) NONE SEEN NONE SEEN N NOTE (test code = NOTE) See Below This urine was analyzed for the presence of WBC, RBC, bacteria, casts, and other formed elements. Only those elements seen were reported. [facility][] REFLEXIVE URINE [id number] 09:46:00* Test Item Value Reference Range Interpretation Comments REFLEXIVE URINE CULTURE (test code = REFLEXIVE URINE C ULTURE) CULTURE INDICATED - RESULTS TO FOLLOW [facility]] CULTURE, URINE, [id number] 09:46:00* Test Item Value Reference Range Interpretation Comments CULTURE (test code = CULTURE) See Comment A CULTURE, URINE, ROUTINE MICRO NUMBER: [id number] TEST STATUS: FINAL SPECIMEN SOURCE: URINE SPECIMEN QUALITY: ADEQUATE RESULT: Greater than 100,000 CFU/mL of Escherichia coli (ESBL) E.coli (ESBL) INT EM AMOX/CLAVULANATE I 16 AMPICILLIN R >=32 1 AMP/SULBACTAM R >=32 CEFAZOLIN R >=64 2 CEFEPIME R >=64 CEFTRIAXONE R >=64 CIPROFLOXACIN R >=4 G ENTAMICIN S <=1 IMIPENEM S <=0.25 LEVOFLOXACIN R >=8 NITROFURANTOIN S <=16 PIP/TAZOBACTAM S <=4 TOBRAMYCIN S <=1 TRIMETHOPRIM/SULFA R >=320 ESBL RESULT: * 3S=Susceptible I=Intermediate R=Resistant * = Not TestedNR = Not Reported NN = See Therapy CommentsTHERAPY COMMENTS Note 1: Extended spectrum beta-lactamase (ESBL) producing organisms demonstrate decreased activity with penicillins, cephalosporins and aztreonam. Note 2: For uncomplicated UTI caused by E. coli, K. pneumoniae or P. mirabilis: Cefazolin is susceptible if EM <32 mcg/mL and predicts susceptible to the oral agents cefaclor, cefdinir, cefpodoxime, cefprozil, cefuroxime, cephalexin and loracarbef. Note 3: The organism has been confirmed as an ESBL independent video producer. [facility][O] Urine Dipstick (In Office)2018-03-02 10:47:00 * Test Item Value Reference Range Interpretation Comments LEUKOCYTES (test code = LEUKOCYTES) Trace A NITRITE; Normal (test code = 96722-0) Negative N UROBILINOGEN; Normal (test code = 73073-9) Negative N PROTEIN; Normal (test code = 87738-7) Negative N pH (test code = pH) 7 URINE BLOOD; Abnormal (test code = 36399-8) about 50 A SPECIFIC GRAVITY (test code = 2965-2) 1.015 KETONES (test code = 26214-9) Negative BILIRUBIN; Normal (test code = 82476-5) Negative N GLUCOSE; Normal (test code = 1547-9) Normal N COLOR URINE; Normal (test code = 5778-6) yellow N [facility]] CULTURE, URINE, [id number] 00:00:00* Test Item Value Reference Range Interpretation Comments CULTURE (test code = CULTURE) See Comment A CULTURE, URINE, ROUTINE MICRO NUMBER: [id number] TEST STATUS: FINAL SPECIMEN SOURCE: NOT GIVEN SPECIMEN QUALITY: ADEQUATE RESULT: 10,000-50,000 CFU/mL of Escherichia coli (ESBL) E.coli (ESBL) INT EM AMOX/CLAVULANATE I 16 AMPICILLIN R >=32 1 AMP/SULBACTAM R >=32 CEFAZOLIN R >=64 2 CEFEPIME S 2 CEFTRIAXONE R >=64 CIPROFLOXACIN R >=4 GENTAMICIN S <=1 IMIPENEM S <=0.25 LEVOFLOXACIN R >=8 NITROFURANTOIN S <=16 PIP/TAZOBACTAM I 32 TOBRAMYCIN S <=1 TRIMETHOPRIM/SULFA R >=320 ESBL RESULT: * 3S=Susceptible I=Intermediate R=Resistant * = Not TestedNR = Not Reported NN = See Therapy CommentsTHERAPY COMMENTS Note 1: Extended spectrum beta-lactamase (ESBL) producing organisms demonstrate decreased activity with penicillins, cephalosporins and aztreonam. Note 2: For uncomplicated UTI caused by E. coli, K. pneumoniae or P. mirabilis: Cefazolin is susceptible if EM <32 mcg/mL and predicts susceptible to the oral agents cefaclor, cefdinir, cefpodoxime, cefprozil, cefuroxime, cephalexin and loracarbef. Note 3: The organism has been confirmed as an ESBL independent video producer. [facility]
--- OUTSIDE RECORDS SUMMARY | 2020-06-17 15:11 | XMS REPORT ---
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 Encounters * AUDIT 12/06/2013
--- OUTSIDE RECORDS SUMMARY | 2020-06-17 15:11 | XMS REPORT ---
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 Encounters * AUDIT 12/10/2013 * NPA, Provider: PATTY AGUILAR, Status: Marco, Time: 9:00 AM 12/17/2013
--- OUTSIDE RECORDS SUMMARY | 2020-06-17 15:11 | XMS REPORT ---
Author Author AbLESLY Organization Unknown Address Unknown Phone Care Team Providers Care Insurance Plan Specialist Name Role Phone Josie Berger PP Unavailable Reason for Referral No Reason [...] Tendonitis Of The Achilles Tendon (726.71); (Active) * Acute Bronchitis (466.0); (Active) Medication * Cymbalta 60 MG Oral [...] CAPS; TAKE 1 CAPSULE DAILY. (Active) * Flector 1.3 % Transdermal Patch; APPLY PATCH TO ACHILLES TENDON A TWICE DAILY NEEDED FOR PAIN; Start Date: 12/30/2013; End Date: (Active) * Cefdinir 300 MG Oral Capsule; TAKE 2 CAPSULES DAILY.; Start Date: 01/13/2014; End Date: (Active) * PredniSONE 10 MG Oral Tablet; TAKE 1 TABLET DAILY.; Start Date: 01/13/2014; End Date: (Active) * Benzonatate 200 MG Oral Capsule; 1 PO TID PRN cough in add'n to Mucinex DM OTC ; Start Date: 01/13/2014 (Active) * Advair Diskus 250-50 MCG/DOSE Inhalation Aerosol Powder Breath Activated; INHALE 1 PUFF TWICE DAILY.; Start Date: 01/13/2014 (Active) Allergies and Adverse Reactions * Erythromycin [...] A Social Drinker (Active) * 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 [id number] 12/30/2013 Routine Advance Directives * No Advance Directives available. Encounters * AUDIT 01/13/2014
--- OUTSIDE RECORDS SUMMARY | 2020-06-17 15:12 | XMS REPORT | Summary of Care ---
Author Author [facility] Address [address] [place] [address] Phone Unavailable Care Team Providers Care Personal Lines Sales Executive Name Role Phone NASRIN Díaz, VICKI Grace Unavailable NASRIN Díaz, VICKI Jaramillo Unavailable Unavailable RAI EDMONDS SC, LAI DOMINGUEZ Unavailable Unavailable SORIN LEOS MD Unavailable Unavailable RAI Aguillon, LAI Unavailable Unavailable NASRIN MITCHELL SC, VICKI Reyes Unavailable Unavailable SAAD EDMONDS SC, BG MARQUIS Unavailable Unavailable Unavailable Unavailable Functional [...] VICKI Reyes. * Start : 06-Sep-2019 Active L-Lysine 500 MG Oral Tablet TAKE 1 [...] 0.5 ML Intramuscula r Suspension Lot #: [id number] on: 28-Jan-2016 Tdap (Adacel) Lot #: [id number] on: 28-Jan-2016 Fluzone High-Dose 0.5 ML Intramuscular S uspension Prefilled Syringe Lot #: [id number] on: 06-Sep-2019 Prevnar 13 Intramuscular Suspension Lot #: [id number] on: 06-Sep-2019 Family History Name Dates Details [...] smoker Vital Signs Date Test Result Details No Known Vitals to report Results Date Description Value Details Results not documented Plan of Care Name Dates Details Planned Observations Planned Goals not documented Planned Encounters Appointment; SORIN LEOS M.D. On: 31-Dec-2019 7:30 Appointment; SORIN LEOS M.D. On: 13-Jan-2020 10:40 Instructions Name Dates Details Instructions not documented Encounters Appointment; VICKI ALEXANDRA NP Encounter Diagnosis: Problem not documented On: 04-Jan-2018 13:30 Appointment; VICKI ALEXANDRA INSTALLATION SUPERINTENDENT Encounter Diagnosis: Problem not documented On: 18-Jan-2018 14:00 Appointment; KRYSTAL AGGARWAL NP Encounter Diagnosis: Problem not documented On: 02-Mar-2018 10:45 Appointment; VICKI ALEXANDRA NP Encounter Diagnosis: Problem not documented On: 24-May-2018 14:00 Appointment; WILLIS MENDEZ, P.A. Encounter Diagnosis: Problem not documented On: 11-Jun-2018 12:30 Appointment; WILLIS MENDEZ, P.A. Encounter Diagnosis: Problem not documented On: 14-Aug-2018 14:30 Appointment; VICKI ALEXANDRA NP Encounter Diagnosis: Problem not documented On: 18-Dec-2018 11:00 Appointment; VICKI ALEXANDRA INSTALLATION SUPERINTENDENT Encounter Diagnosis: Problem not documented On: 31-Jan-2019 [...] Problem not documented On: 29-Oct-2019 11:30 Appointment; PATROL POLICE SERGEANT-ONCOLOGY, PROVIDER Encounter Diagnosis: Problem not documented On: 11-Nov-2019 9:00 Appointment; SORIN LEOS M.D. Encounter Diagnosis: Problem not documented On: 18-Nov-2019 12:20 Appointment; SORIN LEOS M.D. Encounter Diagnosis: Problem not documented On: 09-Dec-2019 10:20
--- OUTSIDE RECORDS SUMMARY | 2020-06-17 15:12 | XMS REPORT | Summary of Care ---
Author Author [facility] Address [address] [place] [address] Phone Unavailable Care Team Providers Care After School Program Teacher Name Role Phone VICKI ALEXANDRA APRN Unavailable Unavailable VICKI ALEXANDRA APRN Unavailable Unavailable RAI EDMONDS ID, LAI DOMINGUEZ Unavailable Unavailable RAI Aguillon, LAI Unavailable Unavailable NASRIN MITCHELL ID, VICKI Reyes Unavailable Unavailable SAAD EDMONDS ID, BG MARQUIS Unavailable Unavailable DAFNE EDMONDS, SORIN Unavailable Unavailable Unavailable Unavailable Functional Status Name [...] A DAY.. NEEDS OFFICE VISIT Quantity: 30 VICKI ALEXANDRA APRN * Start : 20-Jun-2017 Active Levothyroxine Sodium 150 MCG Oral Tablet TAKE 1 TABLET DAILY. * Quantity: 90 Refills: 3 VICKI ALEXANDRA APRN Active Cyclobenzaprine HCl - 10 MG Oral Tablet 1 tab PO BID * Quantity: 180 Refills: 0 VICKI ALEXANDRA APRN Active Aspirin 81 MG TABS one daily [...] TWICE DAILY * Quantity: 360 Refills: 0 VICKI ALEXANDRA APRN. * Start : 30-Dec-2014 Active SUMAtriptan Succinate 100 MG Oral Tablet TAKE 1 TABLET BY MOUTH FOR MIGRAINE RELIEF. MAY REPEAT 2 HOURS LATER IF NEEDED. MAXIMUM 2 TABLETS PER DAY. * Quantity: 1 Refills: 6 VICKI ALEXANDRA APRN. * Start : 02-Feb-2016 Active 9 Tablet Bottle Aleve 220 MG Oral Tablet TAKE 2 TABLET 2 TIMES DAILY PRN w/ Sumatriptan * Refills: 0 VICKI ALEXANDRA APRN * Start : 02-Feb-2016 Active Vitamin B-12 500 MCG Sublingual Tablet Sublingual ONE TAB ORALLY ONCE OR TWICE A DAY FOR MIGRAINE PREVENTION. * Refills: 0 VICKI ALEXANDRA APRN * Start : 02-Feb-2016 Active Fosinopril Sodium 10 MG Oral Tablet TAKE 1 TABLET BY MOUTH EVERY DAY * Quantity: 90 Refills: 0 VICKI ALEXANDRA APRN. * Start : 14-Apr-2017 Active traMADol HCl - 50 MG Oral Tablet 1-2 PO Q6 hrs PRN * Quantity: 90 Refills: 2 VICKI ALEXANDRA APRN. * Start : 18-Dec-2018 Active Diclofenac Epolamine 1.3 % Transdermal Patch APPLY PATCH TO AFFECTED AREA TWICE DAILY. * Quantity: 2 Refills: 5 VICKI ALEXANDRA APRN * Start : 06-Mar-2019 Active 30 Patch Box Gabapentin 300 MG Oral Capsule TAKE 1 CAPSULE IN THE MORNING AND 1-2 CAPSULES IN THE EVENING. * Refills: 0 VICKI ALEXANDRA APRN. * Start : 06-Sep-2019 Active L-Lysine 500 MG Oral Tablet TAKE 1 TABLET DAILY forcold sore prevention * Refills: 0 VICKI ALEXANDRA APRN. * Start : 06-Sep-2019 Active Cod Liver Oil Oral Capsule 3-4 caps twice a day for Arthritis..0.3-4 week trial * Refills: 0 VICKI ALEXANDRA APRN. * Start : 06-Sep-2019 Active Allergies and [...] 0.5 ML Intramuscula r Suspension Lot #: [id number] on: 28-Jan-2016 Tdap (Adacel) Lot #: [id number] on: 28-Jan-2016 Fluzone High-Dose 0.5 ML Intramuscular S uspension Prefilled Syringe Lot #: [id number] on: 06-Sep-2019 Prevnar 13 Intramuscular Suspension Lot #: [id number] on: 06-Sep-2019 Family History Name Dates Details [...] Planned Goals not documented Planned Encounters Appointment; VICKI ALEXANDRA APRN On: 30-Dec-2019 15:15 Appointment; SORIN LEOS M.D. On: 31-Dec-2019 7:30 Appointment; SORIN LEOS M.D. On: 13-Jan-2020 10:40 Instructions Name Dates Details Instructions not documented Encounters Appointment; VICKI ALEXANDRA APRN Encounter Diagnosis: Problem not documented On: 04-Jan-2018 13:30 Appointment; VICKI ALEXANDRA APRN Encounter Diagnosis: Problem not documented On: 18-Jan-2018 14:00 Appointment; KRYSTAL AGGARWAL APRN Encounter Diagnosis: Problem not documented On: 02-Mar-2018 10:45 Appointment; VICKI ALEXANDRA APRN Encounter Diagnosis: Problem not documented On: 24-May-2018 14:00 Appointment; WILLIS MENDEZ, P.A. Encounter Diagnosis: Problem not documented On: 11-Jun-2018 12:30 Appointment; WILLIS MENDEZ, P.A. Encounter Diagnosis: Problem not documented On: 14-Aug-2018 14:30 Appointment; VICKI ALEXANDRA APRN Encounter Diagnosis: Problem not documented On: 18-Dec-2018 11:00 Appointment; VICKI ALEXANDRA APRN Encounter Diagnosis: Problem not documented On: 31-Jan-2019 14:15 Appointment; VICKI ALEXANDRA APRN Encounter Diagnosis: Problem not documented On: 13-Feb-2019 13:30 Appointment; VICKI ALEXANDRA APRN Encounter Diagnosis: Problem not documented On: 05-Jun-2019 10:00 Appointment; VICKI ALEXANDRA APRN Encounter Diagnosis: Problem not documented On: 10-Jul-2019 14:30 Appointment; VICKI ALEXANDRA APRN Encounter Diagnosis: Problem not documented On: 06-Sep-2019 10:30 Appointment; WILLIS MENDEZ, P.A. Encounter Diagnosis: Problem not documented On: 19-Sep-2019 10:00 Appointment; SORIN LEOS M.D. Encounter Diagnosis: Problem not documented On: 07-Oct-2019 11:00 Appointment; SORIN LEOS M.D. Encounter Diagnosis: Problem not documented On: 29-Oct-2019 11:30 Appointment; JAVA WEB SERVICES DEVELOPER-ONCOLOGY, PROVIDER Encounter Diagnosis: Problem not documented On: 11-Nov-2019 9:00 Appointment; SORIN LEOS M.D. Encounter Diagnosis: Problem not documented On: 18-Nov-2019 12:20 Appointment; SORIN LEOS M.D. Encounter Diagnosis: Problem not documented On: 09-Dec-2019 10:20
--- OUTSIDE RECORDS SUMMARY | 2020-06-17 15:12 | XMS REPORT | Summary of Care ---
Author Author [facility] Address [address] [place] [address] Phone Unavailable Care Team Providers Care Pantograph Operator Name Role Phone NASRIN Díaz, VICKI Grace Unavailable NASRIN Díaz, VICKI Jaramillo Unavailable Unavailable RAI EDMONDS ID, LAI DOMINGUEZ Unavailable Unavailable SORIN LEOS MD Unavailable Unavailable RAI Aguillon, LAI Unavailable Unavailable NASRIN MITCHELL ID, VICKI Reyes Unavailable Unavailable SAAD EDMONDS ID, BG MARQUIS Unavailable Unavailable Unavailable Unavailable Functional [...] 0.5 ML Intramuscula r Suspension Lot #: [id number] on: 28-Jan-2016 Tdap (Adacel) Lot #: [id number] on: 28-Jan-2016 Fluzone High-Dose 0.5 ML Intramuscular S uspension Prefilled Syringe Lot #: [id number] on: 06-Sep-2019 Prevnar 13 Intramuscular Suspension Lot #: [id number] on: 06-Sep-2019 Family History Name Dates Details [...] documented On: 04-Jan-2018 13:30 Appointment; VICKI ALEXANDRA TABLET MAKING MACHINE OPERATOR HELPER Encounter Diagnosis: Problem not documented On: 18-Jan-2018 [...] documented On: 18-Dec-2018 11:00 Appointment; VICKI ALEXANDRA TABLET MAKING MACHINE OPERATOR HELPER Encounter Diagnosis: Problem not documented On: 31-Jan-2019 [...] not documented On: 29-Oct-2019 11:30 Appointment; PATROL LADY-ONCOLOGY, PROVIDER Encounter Diagnosis: Problem not documented On: 11-Nov-2019 9:00 Appointment; SORIN LEOS M.D. Encounter Diagnosis: Problem not documented On: 18-Nov-2019 12:20 Appointment; SORIN LEOS M.D. Encounter Diagnosis: Problem not documented On: 09-Dec-2019 10:20
--- OUTSIDE RECORDS SUMMARY | 2020-06-17 15:12 | XMS REPORT | Summary of Care ---
Author Author LESLY ALEXANDRA APRN Organization Unknown Address Unknown Phone Unavailable Care Team Providers Care Spiritual Counselor Name Role Phone VICKI ALEXANDRA APRN Unavailable Unavailable VICKI ALEXANDRA APRN Unavailable Unavailable RAI EDMONDS [place], LAI DOMINGUEZ Unavailable Unavailable SORIN LEOS MD Unavailable Unavailable RAI Aguillon, LAI Unavailable Unavailable NASRIN MITCHELL [place], VICKI Reyes Unavailable Unavailable SAAD EDMONDS [place], BG MARQUIS Unavailable Unavailable Unavailable Unavailable Functional Status Name Dates Details Functional status health issues are not documented Status: Name Dates Details Cognitive status health issues are not d ocumented Status: Problems Name Dates Details Breast cancer screening (V76.10, Z12.39) Status: Active Osteoporosis screening (V82.81, Z13.820) Status: Active Encounter for cervical Pap smear with pe lvic exam (V76.2, Z01.419) Status: Active Urinary urgency (788.63, R39.15) Status: Active Synovial cyst of right popliteal space ( 727.51, M71.21) Status: Active Acute frontal sinusitis (461.1, J01.10) Status: Active Colon cancer screening (V76.51, Z12.11) Status: Active HSV (herpes simplex virus) infection (05 4.9, B00.9) Status: Active Need for influenza vaccination (V04.81, Z23) Status: Active Need for Streptococcus pneumoniae vaccin ation (V03.82, Z23) Status: Active Polyarthropathy, 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, 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: Active Seasonal allergic rhinitis due to pollen (477.0, J30.1) Status: Active Well female exam with routine gynecologi kunal exam (V72.31, Z01.419) Status: Active Visit for screening mammogram (V76.12, Z 12.31) Status: Active 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, with long-term current use of insulin (250.60, E11.40) Status: Active Dysuria (788.1, R30.0) Status: Active Anemia, unspecified type (285.9, D64.9) Status: Active Abnormal Pap smear of cervix (795.00, R8 7.619) Status: Active 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, 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 Atypical squamous cell changes of undete rmined significance (ASCUS) on vaginal cytology (795.11, R87.620) Status: Active Common migraine without aura (346.10, G4 3.009) Status: Active Dysthymic disorder (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, F34.1) Status: Active History of Elevated ALT measurement (790 .4, R74.0) Status: Resolved Essential (primary) hypertension (401.9, I10) Status: Active Essential tremor (333.1, G25.0) Status: Active Fibromyalgia (729.1, M79.7) Status: Active GERD without esophagitis (530.81, K21.9) Status: Active Hypothyroidism due to acquired atrophy o f thyroid (244.8, E03.4) Status: Active Insomnia, idiopathic (307.42, F51.01) Status: Active NERY on CPAP (327.23, G47.33) Status: Active Chronic fatigue syndrome with fibromyalg ia (780.71, R53.82) Status: Active Acute UTI (599.0, N39.0) Status: Active Post-menopausal bleeding (627.1, N95.0) Status: Active Post-menopausal (V49.81, Z78.0) Status: Active Tremor, coarse (781.0, G25.2) Status: Active Medications Name Dates Details DULoxetine HCl - 60 MG Oral Capsule Mary yed Release Particles Take one capsule by mouth once a day Quantity: 90 VICKI ALEXANDRA APRN * Start : 20-Jun-2017 Active Levothyroxine Sodium 150 MCG Oral Tablet TAKE 1 TABLET DAILY. * Quantity: 90 Refills: 3 VICKI ALEXANDRA APRN Active Cyclobenzaprine HCl - 10 MG Oral Tablet 1 tab PO BID * Quantity: 180 Refills: 0 VICKI ALEXANDRA APRN Active Aspirin 81 MG TABS one daily * Refills: 0 Active Malorie-Rul Vitamin D 50 MCG (2000 UT) Oral Tablet * Refills: 0 Active Melatonin 10 MG Oral Capsule at HS * Refills: 0 Active Multivitamins CAPS TAKE 1 CAPSULE DAILY. * Refills: 0 Active metFORMIN HCl ER 500 MG Oral Tablet Extended Release 24 Hour TAKE 2 TABLETS BY MOUTH TWICE DAILY * Quantity: 360 Refills: 0 VICKI ALEXANDRA APRN * Start : 30-Dec-2014 Active SUMAtriptan Succinate 100 MG Oral Tablet TAKE 1 TABLET BY MOUTH FOR MIGRAINE RELIEF. MAY REPEAT 2 HOURS LATER IF NEEDED. MAXIMUM 2 TABLETS PER DAY. * Quantity: 1 Refills: 6 VICKI ALEXANDRA APRN * Start : 02-Feb-2016 Active 9 Tablet Bottle Aleve 220 MG Oral Tablet TAKE 2 TABLET 2 TIMES DAILY PRN w/ Sumatriptan * Refills: 0 VICKI ALEXANDRA APRN * Start : 02-Feb-2016 Active Vitamin B-12 500 MCG Sublingual Tablet Sublingual ONE TAB ORALLY ONCE OR TWICE A DAY FOR MIGRAINE PREVENTION. * Refills: 0 VICKI ALEXANDRA APRN Start : 02-Feb-2016 Active Fosinopril Sodium 10 MG Oral Tablet TAKE 1 TABLET BY MOUTH EVERY DAY * Quantity: 90 Refills: 0 VICKI ALEXANDRA APRN * Start : 14-Apr-2017 Active traMADol HCl - 50 MG Oral Tablet 1-2 PO Q6 hrs PRN * Quantity: 90 Refills: 2 VICKI ALEXANDRA APRN * Start : 18-Dec-2018 Active Ciprofloxacin HCl - 250 MG Oral Tablet Take 1 tablet BID * Quantity: 20 Refills: 0 VICKI ALEXANDRA APRN * Start : 10-Jul-2019 Active L-Lysine 500 MG Oral Tablet TAKE 1 TABLET DAILY forcold sore prevention * Refills: 0 VICKI ALEXANDRA APRN * Start : 06-Sep-2019 Active Fish Oil 1200 MG Oral Capsule One capsule twice a day * Refills: 0 Active Topamax 25 MG Oral Tablet two a day * Refills: 0 Active Niacin 500 MG Oral Tablet * Refills: 0 Active Zegerid OTC CAPS * Refills: 0 Active Pyridium 200 MG Oral Tablet TAKE 1 TABLET 3 TIMES DAILY AFTER MEALS NEEDED * Quantity: 42 Refills: 3 VICKI ALEXANDRA APRN * Start : 30-Dec-2019 Active Allergies and Adverse Reactions Name Dates [...] Z87.440) Status: Resolved Procedures Procedure Dates Details COLOGUARD Date: 30-Dec-2019 [[facility]] CMP W/EGFR Date: 30-Dec-2019 [[facility]] TSH, 3RD GENERATION W/REFLEX TO FT4 Date: 30-Dec-2019 [[facility]] CULTURE, URINE, ROUTINE Date: 30-Dec-2019 History of Tonsillectomy With Adenoidectomy Completed History of Appendectomy Completed History of Cholecystectomy Completed History of Dilation And Curettage Comple nish History of Gallbladder surgery Completed History of Knee Surgery Completed History of Tubal Ligation Completed Immunization Name Dates Details Fluzone Quadrivalent 0.5 ML Intramuscula r Suspension Lot #: [id number] on: 28-Jan-2016 Tdap (Adacel) Lot #: [id number] on: 28-Jan-2016 Fluzone High-Dose 0.5 ML Intramuscular S uspension Prefilled Syringe Lot #: [id number] on: 06-Sep-2019 Prevnar 13 Intramuscular Suspension Lot #: [id number] on: 06-Sep-2019 Family History Name Dates Details [...] smoker Vital Signs Date Test Result Details [id number] Physical Findings 10 Status: Comments: PH Q-9 Adult Depression Screening :12 BP Systolic 131 mm[Hg] Status: Comments: Lo cation: RUE; Position: Sitting BP Diastolic 80 mm[Hg] Status: Comments: Lo cation: RUE; Position: Sitting Height 65.55 in Status: Weight 216.5 lb Status: Body Mass Index Calculated 35.42 kg/m2 Status: Body Surface Area Calculated 2.06 m2 Status: Temperature 98.5 f Status: Comments: Me thod: Temporal Heart Rate 103 /min Status: Respiration Rate 18 /min Status: Physical Findings 0 Status: Comments: Al cohol Screen - How many times in the past yr have you had 5 (for M) or 4 (for F) or 4 (for all > 65yrs) or more drinks in a day? Results Date Description Value Details :33 [O] Hemoglobin A1c (in office) HEMOGLOBIN A1c 7.0 (Abnormal) :30 [O] Urine Dipstick (In Office) Glucose unable to determine LEUKOCYTES unable to determine NITRITE positive (Abnormal ) UROBILINOGEN unable to determine PROTEIN unable to determine pH 5 URINE BLOOD about 250 (Abnorma l) SPECIFIC GRAVITY 1.015 KETONES unable to determine BILIRUBIN unable to determine COLOR URINE orange (Abnormal) APPEARANCE clear (Normal) COMMENT PATIENT TOOK AZO THI S AM Plan of Care Name Dates Details Planned Observations Planned Goals not documented Planned Encounters Psychiatry Referral Appointment; SORIN LEOS M.D. On: 31-Dec-2019 7:30 Appointment; SORIN LEOS M.D. On: 13-Jan-2020 10:40 Appointment; VICKI ALEXANDRA APRN On: 23-Mar-2020 10:15 Interventions Provided Medication Changes* Ciprofloxacin HCl - 250 MG Oral Tablet - Renew * Cyclobenzaprine HCl - 10 MG Oral Tablet - Renew * DULoxetine HCl - 60 MG Oral Capsule Delayed Release Particles - Renew * Fosinopril Sodium 10 MG Oral Tablet - Renew * metFORMIN HCl ER 500 MG Oral Tablet Extended Release 24 Hour - Renew * Pyridium 200 MG Oral Tablet - Start Labs/Procedures/Imaging* [[facility]] CMP W/EGFR; To Be Done: 30 Dec 2019 * [[facility]] CULTURE, URINE, ROUTINE; To Be Done: 30 Dec 2019 * [[facility]] TSH, 3RD GENERATION W/REFLEX TO FT4; To Be Done: 30 Dec 2019 * COLOGUARD; To Be Done: 30 Dec 2019 * [O] Hemoglobin A1c (in office); Done: 30 Dec 2019 * [O] Urine Dipstick (In Office); Done: 30 Dec 2019 Plan* Take your blood pressures in the same arm and the same time of day (+/- 1 Hr) ONCE a WEEK (min). Just NOT within 1 hr AFTER a meal and NOT a WRIST Cuff.. This will give us (you and me) a better idea of your trend of blood pressures. * Contact my Nurse...from the main number choose Option 7 (Nurses Line) then Option 3 (their line or voice mail). Leave a message. Give us at least 2 hours (minimum) to return your call, if it cannot wait until the next business day. If you do not get a return call, please call us again. * get labs done 3-4 days prior to 3 mo follow-up. Instructions Name Dates Details Instructions not documented Encounters Appointment; VICKI ALEXANDRA APRN Encounter Diagnosis: Problem not documented On: 04-Jan-2018 13:30 Appointment; VICKI ALEXANDRA APRN Encounter Diagnosis: Problem not documented On: 18-Jan-2018 14:00 Appointment; KRYSTAL AGGARWAL APRN Encounter Diagnosis: Problem not documented On: 02-Mar-2018 10:45 Appointment; VICKI ALEXANDRA APRN Encounter Diagnosis: Problem not documented On: 24-May-2018 14:00 Appointment; WILLIS MENDEZ, PMekaAMeka Encounter Diagnosis: Problem not documented On: 11-Jun-2018 [...] Problem not documented On: 29-Oct-2019 11:30 Appointment; USER EXPERIENCE DEVELOPER-ONCOLOGY, PROVIDER Encounter Diagnosis: Problem not documented On: 11-Nov-2019 9:00 Appointment; SORIN LEOS M.D. Encounter Diagnosis: Problem not documented On: 18-Nov-2019 12:20 Appointment; SORIN LEOS M.D. Encounter Diagnosis: Problem not documented On: 09-Dec-2019 10:20 Appointment; VICKI ALEXANDRA APRN Encounter Diagnosis: Problem not documented On: 30-Dec-2019 15:15
--- OUTSIDE RECORDS SUMMARY | 2020-06-17 15:12 | XMS REPORT | Summary of Care ---
Author Author Perico CHANDLER, LESLY QUINTERO Organization Unknown Address Unknown Phone Unavailable Care Team Providers Care Lodging Manager Name Role Phone NASRIN Díaz, VICKI Unavailable Unavailable Perico CHANDLER [place] Unavailable Unavailable NASRIN Díaz, VICKI Jaramillo Unavailable Unavailable RAI EDMONDS [place], LAI DOMINGUEZ Unavailable Unavailable SORIN LEOS MD Unavailable Unavailable RAI Aguillon, LAI Unavailable Unavailable NASRIN MITCHELL [place], VICKI Reyes Unavailable Unavailable SAAD EDMONDS [place], BG MARQUIS Unavailable Unavailable Unavailable Unavailable Functional [...] DAY.. NEEDS OFFICE VISIT Quantity: 30 NASRIN N.P., VICKI Jaramillo * Start : 20-Jun-2017 Active Levothyroxine Sodium [...] 0.5 ML Intramuscula r Suspension Lot #: [id number] on: 28-Jan-2016 Tdap (Adacel) Lot #: [id number] on: 28-Jan-2016 Fluzone High-Dose 0.5 ML Intramuscular S uspension Prefilled Syringe Lot #: [id number] on: 06-Sep-2019 Prevnar 13 Intramuscular Suspension Lot #: [id number] on: 06-Sep-2019 Family History Name Dates Details [...] documented On: 04-Jan-2018 13:30 Appointment; VICKI ALEXANDRA TRACK LAYER Encounter Diagnosis: Problem not documented On: 18-Jan-2018 14:00 Appointment; KRYSTAL AGGARWAL NP Encounter Diagnosis: Problem not documented On: 02-Mar-2018 10:45 Appointment; VICKI ALEXANDRA NP Encounter Diagnosis: Problem not documented On: 24-May-2018 14:00 Appointment; WILLIS MENDEZ, P.A. Encounter Diagnosis: Problem not documented On: 11-Jun-2018 12:30 Appointment; VANESSA WILLIS, P.A. Encounter Diagnosis: Problem not documented On: 14-Aug-2018 14:30 Appointment; VICKI ALEXANDRA TRACK LAYER Encounter Diagnosis: Problem not documented On: 18-Dec-2018 11:00 Appointment; VICKI ALEXANDRA TRACK LAYER Encounter Diagnosis: Problem not documented On: 31-Jan-2019 [...] Problem not documented On: 29-Oct-2019 11:30 Appointment; [employer] BUSINESS ANALYST-ONCOLOGY, PROVIDER Encounter Diagnosis: Problem not documented On: 11-Nov-2019 9:00 Appointment; SORIN LEOS M.D. Encounter Diagnosis: Problem not documented On: 18-Nov-2019 12:20 Appointment; SORIN LEOS M.D. Encounter Diagnosis: Problem not documented On: 09-Dec-2019 10:20
--- OUTSIDE RECORDS SUMMARY | 2020-06-17 15:12 | XMS REPORT | Summary of Care ---
Author Author LESLY ALEXANDRA APRN Organization Unknown Address Unknown Phone Unavailable Care Team Providers Care [place] Teacher Name Role Phone VICKI ALEXANDRA APRN Unavailable Unavailable VICKI ALEXANDRA APRN Unavailable Unavailable RAI EDMONDS [place], LAI DOMINGUEZ Unavailable Unavailable RAI Aguillon, LAI Unavailable Unavailable NASRIN DENISE, VICKI Reyes Unavailable Unavailable SAAD EDMONDS [place], BG MARQUIS Unavailable Unavailable SORIN LEOS MD Unavailable Unavailable Unavailable Unavailable Functional Status Name [...] Sumatriptan * Refills: 0 VICKI ALEXANDRA APRN Start : 02-Feb-2016 Active Vitamin B-12 500 [...] ALEXANDRA APRN * Start : 18-Dec-2018 Active L-Lysine 500 MG Oral Tablet TAKE [...] Zegerid OTC CAPS * Refills: 0 Active Allergies and Adverse Reactions Name Dates [...] Procedures Procedure Dates Details COLOGUARD Date: 30-Dec-2019 [[facility]] CMP W/EGFR Date: 30-Dec-2019 [[facility]] TSH, 3RD GENERATION W/REFLEX TO FT4 Date: 30-Dec-2019 History of Tonsillectomy With Adenoidectomy Completed History of Appendectomy Completed History of Cholecystectomy Completed History of Dilation And Curettage Comple nish History of Gallbladder surgery Completed History of Knee Surgery Completed History of Tubal Ligation Completed Immunization Name Dates Details Fluzone Quadrivalent 0.5 ML Intramuscula r Suspension Lot #: [id number] on: 28-Jan-2016 Tdap (Adacel) Lot #: [id number] on: 28-Jan-2016 Fluzone High-Dose 0.5 ML Intramuscular S uspension Prefilled Syringe Lot #: [id number] on: 06-Sep-2019 Prevnar 13 Intramuscular Suspension Lot #: [id number] on: 06-Sep-2019 Family History Name Dates Details [...] smoker Vital Signs Date Test Result Details [id number]-[id number]:12 BP Systolic 131 mm[Hg] Status: Comments: Lo [...] a day? Results Date Description Value Details [id number]:33 [O] Hemoglobin A1c (in office) HEMOGLOBIN A1c 7.0 (Abnormal) Plan of Care Name Dates Details Planned Observations Planned Goals not documented Planned Encounters Appointment; SORIN LEOS M.D. On: 31-Dec-2019 7:30 Appointment; SORIN LEOS M.D. On: 13-Jan-2020 10:40 Interventions Provided Medication Changes* Cyclobenzaprine HCl - 10 MG Oral Tablet - Renew * DULoxetine HCl - 60 MG Oral Capsule Delayed Release Particles - Renew * Fosinopril Sodium 10 MG Oral Tablet - Renew * metFORMIN HCl ER 500 MG Oral Tablet Extended Release 24 Hour - Renew Labs/Procedures/Imaging* [[facility]] CMP W/EGFR; To Be Done: 30 Dec 2019 * [[facility]] TSH, 3RD GENERATION W/REFLEX TO FT4; To Be Done: 30 Dec 2019 * COLOGUARD; To Be Done: 30 Dec 2019 * [O] Hemoglobin A1c (in office); Done: 30 Dec 2019 Plan* Take your [...] a return call, please call us again. Instructions Name Dates Details Instructions not documented Encounters Appointment; VICKI ALEXANDRA APRN Encounter Diagnosis: Problem not documented On: 04-Jan-2018 13:30 Appointment; VICKI ALEXANDRA APRN Encounter Diagnosis: Problem not documented On: 18-Jan-2018 14:00 Appointment; KRYSTAL AGGARWAL APRN Encounter Diagnosis: Problem not documented On: 02-Mar-2018 10:45 Appointment; VICKI ALEXANDRA APRN Encounter Diagnosis: Problem not documented On: 24-May-2018 14:00 Appointment; WILLIS MENDEZ P.A. Encounter Diagnosis: Problem not documented On: 11-Jun-2018 12:30 Appointment; WILLIS MENDEZ P.A. Encounter Diagnosis: Problem [...] Problem not documented On: 29-Oct-2019 11:30 Appointment; ADVERTISING DIRECTOR-ONCOLOGY, PROVIDER Encounter Diagnosis: Problem not documented On: 11-Nov-2019 9:00 Appointment; SORIN LEOS M.D. Encounter Diagnosis: Problem not documented On: 18-Nov-2019 12:20 Appointment; SORIN LEOS M.D. Encounter Diagnosis: Problem not documented On: 09-Dec-2019 10:20 Appointment; VICKI ALEXANDRA APRN Encounter Diagnosis: Problem not documented On: 30-Dec-2019 15:15
--- OUTSIDE RECORDS SUMMARY | 2020-06-17 15:12 | XMS REPORT | Summary of Care ---
Author Author [facility] Address [address] [place] [address] Phone Unavailable Care Team Providers Care Frit Mixer And Burner Name Role Phone VICKI ALEXANDRA APRN Unavailable Unavailable VICKI ALEXANDRA APRN Unavailable Unavailable RAI EDMONDS [place], LAI DOMINGUEZ Unavailable Unavailable RAI Aguillon, LAI Unavailable Unavailable NASRIN MITCHELL [place], VICKI Reyes Unavailable Unavailable SAAD EDMONDS [place], BG MARQUIS Unavailable Unavailable DAFNE EDMONDS, SORIN [...] 0.5 ML Intramuscula r Suspension Lot #: [id number] on: 28-Jan-2016 Tdap (Adacel) Lot #: [id number] on: 28-Jan-2016 Fluzone High-Dose 0.5 ML Intramuscular S uspension Prefilled Syringe Lot #: [id number] on: 06-Sep-2019 Prevnar 13 Intramuscular Suspension Lot #: [id number] on: 06-Sep-2019 Family History Name Dates Details [...] documented On: 24-May-2018 14:00 Appointment; WILLIS MENDEZ P.AMeka Encounter Diagnosis: Problem not documented On: 11-Jun-2018 12:30 Appointment; WILLIS MENDEZ P.AMeka Encounter Diagnosis: Problem not documented On: [...] documented On: 06-Sep-2019 10:30 Appointment; WILLIS MENDEZ PJanusz Encounter Diagnosis: Problem not documented On: 19-Sep-2019 10:00 Appointment; SORIN LEOS M.D. Encounter Diagnosis: Problem not documented On: 07-Oct-2019 11:00 Appointment; SORIN LEOS M.D. Encounter Diagnosis: Problem not documented On: 29-Oct-2019 11:30 Appointment; SURGICAL CODER-ONCOLOGY, PROVIDER Encounter Diagnosis: Problem not documented On: 11-Nov-2019 9:00 Appointment; SORIN LEOS M.D. Encounter Diagnosis: Problem not documented On: 18-Nov-2019 12:20 Appointment; SORIN LEOS M.D. Encounter Diagnosis: Problem not documented On: 09-Dec-2019 10:20
--- OUTSIDE RECORDS SUMMARY | 2020-06-17 15:12 | XMS REPORT | Summary of Care ---
Author Author [facility] Address [address] [place] [address] Phone Unavailable Care Team Providers Care Telecommunication Equipment Repairer Name Role Phone VICKI ALEXANDRA APRN Unavailable VICKI ALEXANDRA APRN Unavailable Unavailable RAI EDMONDS [place], LAI DOMINGUEZ Unavailable Unavailable SORIN LEOS MD Unavailable Unavailable RAI Aguillon, LAI Unavailable Unavailable NASRIN MITCHELL [place], VICKI Reyes Unavailable Unavailable SAAD EDMONDS [place], BG MARQUIS Unavailable Unavailable Unavailable Unavailable Functional [...] Active Essential tremor (333.1, G25.0) Status: Active Acute UTI (599.0, N39.0) Status: Active Medications Name Dates Details DULoxetine [...] Procedures Procedure Dates Details COLOGUARD Date: 30-Dec-2019 [[facility]] CMP W/EGFR Date: 30-Dec-2019 [[facility]] TSH, 3RD GENERATION W/REFLEX TO FT4 Date: 30-Dec-2019 [[facility]] CULTURE, URINE, ROUTINE Date: 30-Dec-2019 History of Tonsillectomy With Adenoidectomy Completed History of Appendectomy Completed History of Cholecystectomy Completed History of Dilation And Curettage Comple nish History of Gallbladder surgery Completed History of Knee Surgery Completed History of Tubal Ligation Completed Immunization Name Dates Details Fluzone Quadrivalent 0.5 ML Intramuscula r Suspension Lot #: [id number] on: 28-Jan-2016 Tdap (Adacel) Lot #: [id number] on: 28-Jan-2016 Fluzone High-Dose 0.5 ML Intramuscular S uspension Prefilled Syringe Lot #: [id number] on: 06-Sep-2019 Prevnar 13 Intramuscular Suspension Lot #: [id number] on: 06-Sep-2019 Family History Name Dates Details [...] smoker Vital Signs Date Test Result Details [id number] Physical Findings 10 Status: Comments: PH Q-9 Adult Depression Screening 69-Fbm-709944:12 BP Systolic 131 mm[Hg] Status: Comments: Lo [...] A1c (in office) HEMOGLOBIN A1c 7.0 (Abnormal) 54-Nmo-238630:30 [O] Urine Dipstick (In Office) Glucose unable [...] Appointment; VICKI ALEXANDRA APRN On: 23-Mar-2020 10:15 Instructions Name Dates Details Instructions not documented Encounters Appointment; VICKI ALEXANDRA APRN Encounter Diagnosis: Problem not documented On: 04-Jan-2018 13:30 Appointment; VICKI ALEXANDRA APRN Encounter Diagnosis: Problem not documented On: 18-Jan-2018 14:00 Appointment; KRYSTAL AGGARWAL APRN Encounter Diagnosis: Problem not documented On: 02-Mar-2018 10:45 Appointment; VICKI ALEXANDRA APRN Encounter Diagnosis: Problem not documented On: 24-May-2018 14:00 Appointment; WILLIS MENDEZ, PJanusz Encounter Diagnosis: Problem not documented On: [...] Problem not documented On: 29-Oct-2019 11:30 Appointment; MANUFACTURING OPERATIONS MANAGER-ONCOLOGY, PROVIDER Encounter Diagnosis: Problem not documented On: 11-Nov-2019 9:00 Appointment; SORIN LEOS M.D. Encounter Diagnosis: Problem not documented On: 18-Nov-2019 12:20 Appointment; SORIN LEOS M.D. Encounter Diagnosis: Problem not documented On: 09-Dec-2019 10:20 Appointment; VICKI ALEXANDRA APRN Encounter Diagnosis: Problem not documented On: 30-Dec-2019 15:15
--- OUTSIDE RECORDS SUMMARY | 2020-06-17 15:12 | XMS REPORT | Summary of Care ---
Author Author LESLY ALEXANDRA APRN Organization Unknown Address Unknown Phone Unavailable Care Team Providers Care Rock Climbing Team Member Name Role Phone VICKI ALEXANDRA APRN Unavailable Unavailable VICKI ALEXANDRA APRN Unavailable Unavailable RAI EDMONDS [place], LAI DOMINGUEZ Unavailable Unavailable RAI Aguillon, LAI Unavailable Unavailable NASRIN DENISE, VICKI Reyes Unavailable Unavailable SAAD EDMONDS [place], BG MARQUIS Unavailable Unavailable SORIN LEOS MD [...] Quantity: 2 Refills: 5 VICKI ALEXANDRA APRN Start : 06-Mar-2019 Active 30 Patch Box [...] 0.5 ML Intramuscula r Suspension Lot #: [id number] on: 28-Jan-2016 Tdap (Adacel) Lot #: [id number] on: 28-Jan-2016 Fluzone High-Dose 0.5 ML Intramuscular S uspension Prefilled Syringe Lot #: [id number] on: 06-Sep-2019 Prevnar 13 Intramuscular Suspension Lot #: [id number] on: 06-Sep-2019 Family History Name Dates Details [...] LEOS M.D. On: 13-Jan-2020 10:40 Interventions Provided Plan* Take your blood pressures in the [...] Problem not documented On: 29-Oct-2019 11:30 Appointment; SUPERVISOR VENEER-ONCOLOGY, PROVIDER Encounter Diagnosis: Problem not documented On: 11-Nov-2019 9:00 Appointment; SORIN LEOS M.D. Encounter Diagnosis: Problem not documented On: 18-Nov-2019 12:20 Appointment; SORIN LEOS M.D. Encounter Diagnosis: Problem not documented On: 09-Dec-2019 10:20 Appointment; VICKI ALEXANDRA APRN Encounter Diagnosis: Problem not documented On: 30-Dec-2019 15:15
--- OUTSIDE RECORDS SUMMARY | 2020-06-17 15:12 | XMS REPORT | Summary of Care ---
Author Author Jesus Alberto Simpson, LESLY QUINTERO Organization Unknown Address Unknown Phone Unavailable Care Team Providers Care Brand Ambassadors Promotional Sales Name Role Phone VICKI ALEXANDRA APRN Unavailable Unavailable VICKI ALEXANDRA APRN Unavailable Unavailable RAI EDMONDS [place], LAI DOMINGUEZ Unavailable Unavailable SORIN LEOS MD Unavailable Unavailable RAI Aguillon, LAI Unavailable Unavailable NASRIN MITCHELL [place], VICKI Reyes Unavailable Unavailable SAAD EDMONDS [place], BG MARQUIS Unavailable Unavailable Unavailable Unavailable Functional [...] Procedures Procedure Dates Details COLOGUARD Date: 30-Dec-2019 [[facility]] CMP W/EGFR Date: 30-Dec-2019 [[facility]] TSH, 3RD GENERATION W/REFLEX TO FT4 Date: 30-Dec-2019 [[facility]] CULTURE, URINE, ROUTINE Date: 30-Dec-2019 History of Tonsillectomy With Adenoidectomy Completed History of Appendectomy Completed History of Cholecystectomy Completed History of Dilation And Curettage Comple nish History of Gallbladder surgery Completed History of Knee Surgery Completed History of Tubal Ligation Completed Immunization Name Dates Details Fluzone Quadrivalent 0.5 ML Intramuscula r Suspension Lot #: [id number] on: 28-Jan-2016 Tdap (Adacel) Lot #: [id number] on: 28-Jan-2016 Fluzone High-Dose 0.5 ML Intramuscular S uspension Prefilled Syringe Lot #: [id number] on: 06-Sep-2019 Prevnar 13 Intramuscular Suspension Lot #: [id number] on: 06-Sep-2019 Family History Name Dates Details [...] smoker Vital Signs Date Test Result Details [id number] Physical Findings 10 Status: Comments: PH Q-9 Adult Depression Screening 20-Dmx-[id number]:12 BP Systolic 131 mm[Hg] Status: Comments: Lo [...] documented On: 06-Sep-2019 10:30 Appointment; WILLIS MENDEZ P.AMeka Encounter Diagnosis: Problem not documented On: 19-Sep-2019 10:00 Appointment; SORIN LEOS M.D. Encounter Diagnosis: Problem not documented On: 07-Oct-2019 11:00 Appointment; SORIN LEOS M.D. Encounter Diagnosis: Problem not documented On: 29-Oct-2019 11:30 Appointment; PRODUCT DEVELOPMENT ASSISTANT-ONCOLOGY, PROVIDER Encounter Diagnosis: Problem not documented On: 11-Nov-2019 9:00 Appointment; SORIN LEOS M.D. Encounter Diagnosis: Problem not documented On: 18-Nov-2019 12:20 Appointment; SORIN LEOS M.D. Encounter Diagnosis: Problem not documented On: 09-Dec-2019 10:20 Appointment; VICKI ALEXANDRA APRN Encounter Diagnosis: Problem not documented On: 30-Dec-2019 15:15
--- OUTSIDE RECORDS SUMMARY | 2020-06-17 15:12 | XMS REPORT | Summary of Care ---
Author Author [facility] Address [address] [place] [address] Phone Unavailable Care Team Providers Care Balloon Artist Name Role Phone VICKI ALEXANDRA APRN Unavailable VICKI ALEXANDRA APRN Unavailable Unavailable RAI EDMONDS [place], LAI DOMINGUEZ Unavailable Unavailable SORIN LEOS MD Unavailable Unavailable RAI Aguillon, LAI Unavailable Unavailable NASRIN MITCHELL [place], VICKI Reyes Unavailable Unavailable SAAD EDMONDS [place], BG MARQUIS Unavailable Unavailable Unavailable Unavailable Functional [...] Dates Details buPROPion HCl TABS (Allergy) Status: Tee Newman-N 50 TABS (Allergy) Status: Act veronika Erythromycin [...] Dates Details COLOGUARD Date: 30-Dec-2019 [[facility]] CMP W/EGFR Date: 30-Dec-2019 [[facility]] TSH, 3RD GENERATION W/REFLEX TO FT4 Date: 30-Dec-2019 [[facility]] CULTURE, URINE, ROUTINE Date: 30-Dec-2019 History of Tonsillectomy With Adenoidectomy Completed History of Appendectomy Completed History of Cholecystectomy Completed History of Dilation And Curettage Comple nish History of Gallbladder surgery Completed History of Knee Surgery Completed History of Tubal Ligation Completed Immunization Name Dates Details Fluzone Quadrivalent 0.5 ML Intramuscula r Suspension Lot #: [id number] on: 28-Jan-2016 Tdap (Adacel) Lot #: [id number] on: 28-Jan-2016 Fluzone High-Dose 0.5 ML Intramuscular S uspension Prefilled Syringe Lot #: [id number] on: 06-Sep-2019 Prevnar 13 Intramuscular Suspension Lot #: [id number] on: 06-Sep-2019 Family History Name Dates Details [...] smoker Vital Signs Date Test Result Details [id number] Physical Findings 10 Status: Comments: PH Q-9 [...] documented On: 06-Sep-2019 10:30 Appointment; WILLIS MENDEZ P.Belkis Encounter Diagnosis: Problem not documented On: 19-Sep-2019 10:00 Appointment; SORIN LEOS M.D. Encounter Diagnosis: Problem not documented On: 07-Oct-2019 11:00 Appointment; SORIN LEOS M.D. Encounter Diagnosis: Problem not documented On: 29-Oct-2019 11:30 Appointment; PICK PULLING MACHINE OPERATOR-ONCOLOGY, PROVIDER Encounter Diagnosis: Problem not documented On: 11-Nov-2019 9:00 Appointment; SORIN LEOS M.D. Encounter Diagnosis: Problem not documented On: 18-Nov-2019 12:20 Appointment; SORIN LEOS M.D. Encounter Diagnosis: Problem not documented On: 09-Dec-2019 10:20 Appointment; VICKI ALEXANDRA APRN Encounter Diagnosis: Problem not documented On: 30-Dec-2019 15:15
--- OUTSIDE RECORDS SUMMARY | 2020-06-17 15:12 | XMS REPORT | Summary of Care ---
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, E03.4) Status: Active Insomnia, idiopathic (307.42, F51.01) Status: Active Colon cancer screening (V76.51, Z12.11) Status: Active 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, 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 Dysthymic disorder (300.4, F34.1) Status: Active Essential (primary) hypertension (401.9, I10) Status: Active Common migraine without aura (346.10, G4 3.009) Status: Active 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, with long-term current use of insulin (250.60, E11.40) Status: Active Synovial cyst of right popliteal space ( 727.51, M71.21) Status: Active Osteoporosis screening (V82.81, Z13.820) Status: Active Essential tremor (333.1, G25.0) Status: Active Obstructive sleep apnea (327.23, G47.33) Status: Active Post-menopausal bleeding (627.1, N95.0) Status: Active Abnormal Pap smear of cervix (795.00, R8 7.619) Status: Active Atypical squamous cell changes of undete rmined significance (ASCUS) on vaginal cytology (795.11, R87.620) Status: Active Post-menopausal (V49.81, Z78.0) Status: Active Visit for screening mammogram (V76.12, Z 12.31) Status: Active Well female exam with routine gynecologi kunal exam (V72.31, Z01.419) Status: Active Acute frontal sinusitis (461.1, J01.10) Status: Active Anemia, unspecified type (285.9, D64.9) Status: Active History of Elevated ALT measurement (790 .4, R74.0) Status: Resolved Encounter for cervical Pap smear with pe lvic exam (V76.2, Z01.419) Status: Active Breast cancer screening (V76.10, Z12.39) Status: Active Medications Name Dates Details DULoxetine HCl - 60 MG Oral Capsule Mary yed Release Particles TAKE ONE CAPSULE BY MOUTH ONCE A DAY.. NEEDS OFFICE VISIT Quantity: 30 NASRIN N.P.VICKI * Start : 20-Jun-2017 Active Aspirin 81 MG TABS one daily [...] TWICE DAILY * Quantity: 360 Refills: 0 NASRIN N.PVICKI Ackerman * Start : 30-Dec-2014 Active Fosinopril Sodium 10 MG Oral Tablet TAKE 1 TABLET BY MOUTH EVERY DAY * Quantity: 90 Refills: 0 NASRIN N.PVICKI Ackerman * Start : 14-Apr-2017 Active traMADol HCl - 50 MG Oral Tablet 1-2 PO Q6 hrs PRN * Quantity: 90 Refills: 2 ALEXANDRA N.P., VICKI Reyes. * Start : 18-Dec-2018 Active Aleve 220 MG Oral Tablet TAKE 2 TABLET 2 TIMES DAILY PRN w/ Sumatriptan * Refills: 0 ALEXANDRA N.P., VICKI * Start : 02-Feb-2016 Active SUMAtriptan Succinate 100 MG Oral Tablet TAKE 1 TABLET BY MOUTH FOR MIGRAINE RELIEF. MAY REPEAT 2 HOURS LATER IF NEEDED. MAXIMUM 2 TABLETS PER DAY. * Quantity: 1 Refills: 6 ALEXANDRA N.P., VICKI D. * Start : 02-Feb-2016 Active 9 Tablet Bottle Cyclobenzaprine HCl - 10 MG Oral Tablet 1 tab PO BID * Quantity: 180 Refills: 0 ALEXANDRA N.P., VICKI Reyes. Active Gabapentin 300 MG Oral Capsule TAKE 1 CAPSULE IN THE MORNING AND 1-2 CAPSULES IN THE EVENING. * Refills: 0 ALEXANDRA N.P., VICKI Reyes. * Start : 06-Sep-2019 Active Diclofenac Epolamine 1.3 % Transdermal Patch APPLY PATCH TO AFFECTED AREA TWICE DAILY. * Quantity: 2 Refills: 5 ALEXANDRA N.P., VICKI * Start : 06-Mar-2019 Active 30 Patch Box Levothyroxine Sodium 150 MCG Oral Tablet TAKE 1 TABLET DAILY. * Quantity: 90 Refills: 3 ALEXANDRA N.P., VICKI Active Vitamin B-12 500 MCG Sublingual Tablet Sublingual ONE TAB ORALLY ONCE OR TWICE A DAY FOR MIGRAINE PREVENTION. * Refills: 0 ALEXANDRA N.P., VICKI * Start : 02-Feb-2016 Active Cod Liver Oil Oral Capsule 3-4 caps twice a day for Arthritis..0.3-4 week trial * Refills: 0 ALEXANDRA N.P., VICKI Reyes. * Start : 06-Sep-2019 Active L-Lysine 500 MG Oral Tablet TAKE 1 TABLET DAILY forcold sore prevention * Refills: 0 ALEXANDRA N.P., VICKI Reyes. * Start : 06-Sep-2019 Active Allergies and [...] 0.5 ML Intramuscula r Suspension Lot #: [id number] on: 28-Jan-2016 Tdap (Adacel) Lot #: [id number] on: 28-Jan-2016 Fluzone High-Dose 0.5 ML Intramuscular S uspension Prefilled Syringe Lot #: [id number] on: 06-Sep-2019 Prevnar 13 Intramuscular Suspension Lot #: [id number] on: 06-Sep-2019 Family History Name Dates Details [...] documented On: 04-Jan-2018 13:30 Appointment; VICKI ALEXANDRA MANAGER BRAND Encounter Diagnosis: Problem not documented On: 18-Jan-2018 [...] documented On: 18-Dec-2018 11:00 Appointment; VICKI ALEXANDRA MANAGER BRAND Encounter Diagnosis: Problem not documented On: 31-Jan-2019 [...] Problem not documented On: 29-Oct-2019 11:30 Appointment; MOTORCYCLE REPAIRER-ONCOLOGY, PROVIDER Encounter Diagnosis: Problem not documented On: 11-Nov-2019 9:00 Appointment; SORIN LEOS M.D. Encounter Diagnosis: Problem not documented On: 18-Nov-2019 12:20 Appointment; SORIN LEOS M.D. Encounter Diagnosis: Problem not documented On: 09-Dec-2019 10:20
--- OUTSIDE RECORDS SUMMARY | 2020-06-17 15:13 | XMS REPORT | Summary of Care ---
Author Author [place] [facility] Address [address] [place] [address] Phone Unavailable Care Team Providers Care Staffing Associate Name Role Phone VICKI ALEXANDRA APRN Unavailable VICKI ALEXANDRA APRN Unavailable Unavailable RAI EDMONDS [place], LAI DOMINGUEZ Unavailable Unavailable SORIN LEOS MD Unavailable Unavailable RAI Aguillon, LAI Unavailable Unavailable NASRIN MITCHELL [place], VICKI Reyes Unavailable Unavailable SAAD EDMONDS [place], BG MARQUIS Unavailable Unavailable Unavailable Unavailable Functional [...] Procedures Procedure Dates Details COLOGUARD Date: 30-Dec-2019 [[facility]] CMP W/EGFR Date: 30-Dec-2019 [[facility]] TSH, 3RD GENERATION W/REFLEX TO FT4 Date: 30-Dec-2019 History of Tonsillectomy With Adenoidectomy Completed History of Appendectomy Completed History of Cholecystectomy Completed History of Dilation And Curettage Comple nish History of Gallbladder surgery Completed History of Knee Surgery Completed History of Tubal Ligation Completed Immunization Name Dates Details Fluzone Quadrivalent 0.5 ML Intramuscula r Suspension Lot #: [id number] on: 28-Jan-2016 Tdap (Adacel) Lot #: [id number] on: 28-Jan-2016 Fluzone High-Dose 0.5 ML Intramuscular S uspension Prefilled Syringe Lot #: [id number] on: 06-Sep-2019 Prevnar 13 Intramuscular Suspension Lot #: [id number] on: 06-Sep-2019 Family History Name Dates Details [...] Details - Status: Name Dates Details Never smoked tobacco (finding) Never smoked tobacco (finding) Vital Signs Date Test Result Details [id number] Physical Findings 10 Status: Comments: PH Q-9 Adult Depression Screening 56-Ltn-781163:12 Systolic blood pressure 131 mm[Hg] Status: Comments : Location: RUE; Position: Sitting Diastolic blood pressure 80 mm[Hg] Status: Comment s: Location: RUE; Position: Sitting Body height 65.55 in Status: Weight 216.5 lb Status: Body mass index (BMI) [Ratio] 35.42 kg/m2 Status: Body surface area Derived from formula 2.06 m2 S tatus: Body temperature 98.5 f Status: Comments: Me thod: Temporal Heart Rate 103 /min Status: Respiratory rate 18 /min Status: Physical Findings 0 Status: [...] Planned Encounters Appointment; SORIN LEOS M.D. On: 13-Jan-2020 10:40 [...] Problem not documented On: 29-Oct-2019 11:30 Appointment; REACTOR SERVICE OPERATOR-ONCOLOGY, PROVIDER Encounter Diagnosis: Problem not documented On: 11-Nov-2019 9:00 Appointment; SORIN LEOS M.D. Encounter Diagnosis: Problem not documented On: 18-Nov-2019 12:20 Appointment; SORIN LEOS M.D. Encounter Diagnosis: Problem not documented On: 09-Dec-2019 10:20 Appointment; VICKI ALEXANDRA APRN Encounter Diagnosis: Problem not documented On: 30-Dec-2019 15:15
--- OUTSIDE RECORDS SUMMARY | 2020-06-17 15:13 | XMS REPORT | Summary of Care ---
Author Author [place] [facility] Address [address] [place] [address] Phone Unavailable Care Team Providers Care Pet Training Instructor Name Role Phone VICKI ALEXANDRA APRN Unavailable VICKI ALEXANDRA APRN Unavailable Unavailable RAI EDMONDS [place], LAI DOMINGUEZ Unavailable Unavailable SORIN LEOS MD Unavailable Unavailable RAI Aguillon, LAI Unavailable Unavailable NASRIN MITCHELL [place], VICKI Reyes Unavailable Unavailable SAAD EDMONDS [place], BG MARQUIS Unavailable Unavailable Unavailable Unavailable Functional Status Name Dates Details Functional status health issues are not documented Status: Name Dates Details Cognitive status health issues are not d ocumented Status: Problems Name Dates Details Breast cancer screening (V76.10, Z12.39) Status: Active Encounter for cervical Pap smear with pe lvic exam (V76.2, Z01.419) Status: Active Urinary urgency (788.63, R39.15) Status: Active Acute frontal sinusitis (461.1, J01.10) Status: Active HSV (herpes simplex virus) infection [...] screening mammogram (V76.12, Z 12.31) Status: Active Tremor, coarse (781.0, G25.2) Status: Active Post-menopausal (V49.81, Z78.0) Status: Active Post-menopausal bleeding (627.1, N95.0) Status: Active Acute UTI (599.0, N39.0) Status: Active Chronic fatigue syndrome with fibromyalg ia (780.71, R53.82) Status: Active NERY on CPAP (327.23, G47.33) Status: Active Insomnia, idiopathic (307.42, F51.01) Status: Active Hypothyroidism due to acquired atrophy o f thyroid (244.8, E03.4) Status: Active GERD without esophagitis (530.81, K21.9) Status: Active Fibromyalgia (729.1, M79.7) Status: Active Essential tremor (333.1, G25.0) Status: Active Essential (primary) hypertension (401.9, I10) Status: Active History of Elevated ALT measurement (790 .4, R74.0) Status: Resolved Dysthymic disorder (300.4, F34.1) Status: Active Common migraine without aura (346.10, G4 3.009) Status: Active Atypical squamous cell changes of undete rmined significance (ASCUS) on vaginal cytology (795.11, R87.620) Status: Active 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, 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 Abnormal Pap smear of cervix (795.00, R8 7.619) Status: Active Anemia, unspecified type (285.9, D64.9) Status: Active Dysuria (788.1, R30.0) Status: Active 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, with long-term current use of insulin (250.60, E11.40) Status: Active Colon cancer screening (V76.51, Z12.11) Status: Active Synovial cyst of right popliteal space ( 727.51, M71.21) Status: Active Osteoporosis screening (V82.81, Z13.820) Status: Active Medications Name Dates Details DULoxetine [...] Procedures Procedure Dates Details COLOGUARD Date: 30-Dec-2019 [ON LICENSE OF [facility]] CMP W/EGFR Date: 30-Dec-2019 [ON LICENSE OF [facility]] TSH, 3RD GENERATION W/REFLEX TO FT4 Date: 30-Dec-2019 History of Tonsillectomy With Adenoidectomy Completed History of Appendectomy Completed History of Cholecystectomy Completed History of Dilation And Curettage Comple nish History of Gallbladder surgery Completed History of Knee Surgery Completed History of Tubal Ligation Completed Immunization Name Dates Details Fluzone Quadrivalent 0.5 ML Intramuscula r Suspension Lot #: [id number] on: 28-Jan-2016 Tdap (Adacel) Lot #: [id number] on: 28-Jan-2016 Fluzone High-Dose 0.5 ML Intramuscular S uspension Prefilled Syringe Lot #: [id number] on: 06-Sep-2019 Prevnar 13 Intramuscular Suspension Lot #: [id number] on: 06-Sep-2019 Family History Name Dates Details [...] smoker Vital Signs Date Test Result Details [id number] Physical Findings 10 Status: Comments: PH Q-9 [...] documented On: 11-Jun-2018 12:30 Appointment; WILLIS MENDEZ, PMekaAMeka Encounter Diagnosis: Problem not documented On: 14-Aug-2018 [...] Problem not documented On: 29-Oct-2019 11:30 Appointment; AUTOMOTIVE GLASS SPECIALIST-ONCOLOGY, PROVIDER Encounter Diagnosis: Problem not documented On: 11-Nov-2019 9:00 Appointment; SORIN LEOS M.D. Encounter Diagnosis: Problem not documented On: 18-Nov-2019 12:20 Appointment; SORIN LEOS M.D. Encounter Diagnosis: Problem not documented On: 09-Dec-2019 10:20 Appointment; VICKI ALEXANDRA APRN Encounter Diagnosis: Problem not documented On: 30-Dec-2019 15:15
--- OUTSIDE RECORDS SUMMARY | 2020-06-17 15:13 | XMS REPORT | Summary of Care ---
Author Author [facility] Address [address] [place] [address] Phone Unavailable Care Team Providers Care Avionics Integration Engineer Name Role Phone VICKI ALEXANDRA APRN Unavailable VICKI ALEXANDRA APRN Unavailable Unavailable RAI EDMONDS [place], LAI DOMINGUEZ Unavailable Unavailable SORIN LEOS MD Unavailable Unavailable RAI Aguillon, LAI Unavailable Unavailable NASRIN MITCHELL [place], VICKI Reyes Unavailable Unavailable SAAD EDMONDS [place], BG MARQUIS Unavailable Unavailable Unavailable Unavailable Functional [...] Dates Details COLOGUARD Date: 30-Dec-2019 [[facility]] CMP W/EGFR Date: 30-Dec-2019 [[facility]] TSH, 3RD GENERATION W/REFLEX TO FT4 Date: 30-Dec-2019 History of Tonsillectomy With Adenoidectomy Completed History of Appendectomy Completed History of Cholecystectomy Completed History of Dilation And Curettage Comple nish History of Gallbladder surgery Completed History of Knee Surgery Completed History of Tubal Ligation Completed Immunization Name Dates Details Fluzone Quadrivalent 0.5 ML Intramuscula r Suspension Lot #: [id number] on: 28-Jan-2016 Tdap (Adacel) Lot #: [id number] on: 28-Jan-2016 Fluzone High-Dose 0.5 ML Intramuscular S uspension Prefilled Syringe Lot #: [id number] on: 06-Sep-2019 Prevnar 13 Intramuscular Suspension Lot #: [id number] on: 06-Sep-2019 Family History Name Dates Details [...] (finding) Vital Signs Date Test Result Details [id number] Physical Findings 10 Status: Comments: PH Q-9 Adult Depression Screening :12 Systolic blood pressure 131 mm[Hg] Status: Comments [...] Problem not documented On: 29-Oct-2019 11:30 Appointment; TECHNICAL ASSOC-ONCOLOGY, PROVIDER Encounter Diagnosis: Problem not documented On: 11-Nov-2019 9:00 Appointment; SORIN LEOS M.D. Encounter Diagnosis: Problem not documented On: 18-Nov-2019 12:20 Appointment; SORIN LEOS M.D. Encounter Diagnosis: Problem not documented On: 09-Dec-2019 10:20 Appointment; VICKI ALEXANDRA APRN Encounter Diagnosis: Problem not documented On: 30-Dec-2019 15:15
--- OUTSIDE RECORDS SUMMARY | 2020-06-17 15:13 | XMS REPORT | Summary of Care ---
Author Author LESLY ALEXANDRA APRN Organization Unknown Address Unknown Phone Unavailable Care Team Providers Care Pet Counselor Name Role Phone VICKI ALEXANDRA APRN Unavailable Unavailable VICKI ALEXANDRA APRN Unavailable Unavailable RAI EDMONDS [place], LAI DOMINGUEZ Unavailable Unavailable SORIN LEOS MD Unavailable Unavailable RAI Aguillon, LAI Unavailable Unavailable NASRIN MITCHELL MD, VICKI Reyes Unavailable Unavailable SAAD EDMONDS MD, BG MARQUIS Unavailable Unavailable Unavailable Unavailable Functional [...] DAILY PRN w/ Sumatriptan * Refills: 0 IVCKI ALEXANDRA APRN * Start : 02-Feb-2016 Active [...] Procedures Procedure Dates Details COLOGUARD Date: 30-Dec-2019 [[facility]] CMP W/EGFR Date: 30-Dec-2019 [[facility]] TSH, 3RD GENERATION W/REFLEX TO FT4 Date: 30-Dec-2019 History of Tonsillectomy With Adenoidectomy Completed History of Appendectomy Completed History of Cholecystectomy Completed History of Dilation And Curettage Comple nish History of Gallbladder surgery Completed History of Knee Surgery Completed History of Tubal Ligation Completed Immunization Name Dates Details Fluzone Quadrivalent 0.5 ML Intramuscula r Suspension Lot #: [id number] on: 28-Jan-2016 Tdap (Adacel) Lot #: [id number] on: 28-Jan-2016 Fluzone High-Dose 0.5 ML Intramuscular S uspension Prefilled Syringe Lot #: [id number] on: 06-Sep-2019 Prevnar 13 Intramuscular Suspension Lot #: [id number] on: 06-Sep-2019 Family History Name Dates Details [...] (finding) Vital Signs Date Test Result Details [id number] Physical Findings 10 Status: Comments: PH Q-9 Adult Depression Screening [id number]-[id number]:12 Systolic blood pressure 131 mm[Hg] Status: Comments [...] documented On: 06-Sep-2019 10:30 Appointment; WILLIS MENDEZ PMekaAMeka Encounter Diagnosis: Problem not documented On: 19-Sep-2019 10:00 Appointment; SORIN LEOS M.D. Encounter Diagnosis: Problem not documented On: 07-Oct-2019 11:00 Appointment; SORIN LEOS M.D. Encounter Diagnosis: Problem not documented On: 29-Oct-2019 11:30 Appointment; MANAGER SPA-ONCOLOGY, PROVIDER Encounter Diagnosis: Problem not documented On: 11-Nov-2019 9:00 Appointment; SORIN LEOS M.D. Encounter Diagnosis: Problem not documented On: 18-Nov-2019 12:20 Appointment; SORIN LEOS M.D. Encounter Diagnosis: Problem not documented On: 09-Dec-2019 10:20 Appointment; VICKI ALEXANDRA APRN Encounter Diagnosis: Problem not documented On: 30-Dec-2019 15:15
--- OUTSIDE RECORDS SUMMARY | 2020-06-17 15:13 | XMS REPORT | Summary of Care ---
Author Author LESLY Valverde Organization Unknown Address [facility] Phone Unavailable Care Team Providers Care Ballistic Expert Name Role Phone VICKI ALEXANDRA APRN Unavailable Unavailable YOUNG Aguillon, TIBURCIO Unavailable Unavailable VICKI ALEXANDRA APRN Unavailable Unavailable [...] by mouth once a day Quantity: 90 IVCKI ALEXANDRA APRN * Start : 20-Jun-2017 Active [...] Procedures Procedure Dates Details COLOGUARD Date: 30-Dec-2019 [[facility]] CMP W/EGFR Date: 30-Dec-2019 [[facility]] TSH, 3RD GENERATION W/REFLEX TO FT4 Date: 30-Dec-2019 History of Tonsillectomy With Adenoidectomy Completed History of Appendectomy Completed History of Cholecystectomy Completed History of Dilation And Curettage Comple nish History of Gallbladder surgery Completed History of Knee Surgery Completed History of Tubal Ligation Completed Immunization Name Dates Details Fluzone Quadrivalent 0.5 ML Intramuscula r Suspension Lot #: [id number] on: 28-Jan-2016 Tdap (Adacel) Lot #: [id number] on: 28-Jan-2016 Fluzone High-Dose 0.5 ML Intramuscular S uspension Prefilled Syringe Lot #: [id number] on: 06-Sep-2019 Prevnar 13 Intramuscular Suspension Lot #: [id number] on: 06-Sep-2019 Family History Name Dates Details [...] smoker Vital Signs Date Test Result Details [id number] Physical Findings 10 Status: Comments: PH Q-9 Adult Depression Screening [id number]-[id number]:12 BP Systolic 131 mm[Hg] Status: Comments: Lo [...] Problem not documented On: 29-Oct-2019 11:30 Appointment; BAKER APPRENTICE-ONCOLOGY, PROVIDER Encounter Diagnosis: Problem not documented On: 11-Nov-2019 9:00 Appointment; SORIN LEOS M.D. Encounter Diagnosis: Problem not documented On: 18-Nov-2019 12:20 Appointment; SORIN LEOS M.D. Encounter Diagnosis: Problem not documented On: 09-Dec-2019 10:20 Appointment; VICKI ALEXANDRA APRN Encounter Diagnosis: Problem not documented On: 30-Dec-2019 15:15
--- OUTSIDE RECORDS SUMMARY | 2020-06-17 15:13 | XMS REPORT | Summary of Care ---
Author Author [facility] Address [address] [place] [address] Phone Unavailable Care Team Providers Care Forestry And Wildlife Manager Name Role Phone VICKI ALEXANDRA APRN Unavailable VICKI ALEXANDRA APRN Unavailable Unavailable RAI EDMONDS [place], LAI DOMINGUEZ Unavailable Unavailable SORIN LEOS MD Unavailable Unavailable RAI Aguillon, LAI Unavailable Unavailable NASRIN MITCHELL NE, VICKI Reyes Unavailable Unavailable SAAD EDMONDS NE, BG MARQUIS Unavailable Unavailable Unavailable Unavailable Functional [...] Procedures Procedure Dates Details COLOGUARD Date: 30-Dec-2019 [[facility]] CMP W/EGFR Date: 30-Dec-2019 [[facility]] TSH, 3RD GENERATION W/REFLEX TO FT4 Date: 30-Dec-2019 History of Tonsillectomy With Adenoidectomy Completed History of Appendectomy Completed History of Cholecystectomy Completed History of Dilation And Curettage Comple nish History of Gallbladder surgery Completed History of Knee Surgery Completed History of Tubal Ligation Completed Immunization Name Dates Details Fluzone Quadrivalent 0.5 ML Intramuscula r Suspension Lot #: [id number] on: 28-Jan-2016 Tdap (Adacel) Lot #: [id number] on: 28-Jan-2016 Fluzone High-Dose 0.5 ML Intramuscular S uspension Prefilled Syringe Lot #: [id number] on: 06-Sep-2019 Prevnar 13 Intramuscular Suspension Lot #: [id number] on: 06-Sep-2019 Family History Name Dates Details [...] smoker Vital Signs Date Test Result Details [id number] Physical Findings 10 Status: Comments: PH Q-9 [...] Problem not documented On: 29-Oct-2019 11:30 Appointment; AUTO BUMPER STRAIGHTENER-ONCOLOGY, PROVIDER Encounter Diagnosis: Problem not documented On: 11-Nov-2019 9:00 Appointment; SORIN LEOS M.D. Encounter Diagnosis: Problem not documented On: 18-Nov-2019 12:20 Appointment; SORIN LEOS M.D. Encounter Diagnosis: Problem not documented On: 09-Dec-2019 10:20 Appointment; VICKI ALEXANDRA APRN Encounter Diagnosis: Problem not documented On: 30-Dec-2019 15:15
--- OUTSIDE RECORDS SUMMARY | 2020-06-17 15:13 | XMS REPORT | Summary of Care ---
Author Author [facility] Address [address] [place] [address] Phone Unavailable Care Team Providers Care Director Communications Name Role Phone VICKI ALEXANDRA APRN Unavailable VICKI ALEXANDRA APRN Unavailable Unavailable RAI EDMONDS [place], LAI DOMINGUEZ Unavailable Unavailable SORIN LEOS MD Unavailable Unavailable RAI Aguillon, LAI Unavailable Unavailable NASRIN MITCHELL [place], VICKI Reyes Unavailable Unavailable SAAD EDMONDS [place], BG MARQUIS Unavailable Unavailable Unavailable Unavailable Functional [...] Status: Active Dysuria (788.1, R30.0) Status: Active NERY on CPAP (327.23, G47.33) Status: Active Chronic fatigue syndrome with fibromyalg ia (780.71, R53.82) Status: Active Acute UTI (599.0, N39.0) Status: Active Post-menopausal bleeding (627.1, N95.0) Status: Active Post-menopausal (V49.81, Z78.0) Status: Active Tremor, coarse (781.0, G25.2) Status: Active Insomnia, idiopathic (307.42, F51.01) Status: [...] Anemia, unspecified type (285.9, D64.9) Status: Active Colon cancer screening (V76.51, Z12.11) Status: Active Medications Name Dates Details DULoxetine [...] ALEXANDRA APRN * Start : 30-Dec-2014 Active Fosinopril Sodium [...] ALEXANDRA APRN * Start : 06-Sep-2019 Active Topamax 25 MG Oral Tablet two a day * Refills: 0 Active Niacin 500 MG Oral Tablet * Refills: 0 Active Zegerid OTC CAPS * Refills: 0 Active Pyridium 200 MG Oral Tablet TAKE 1 TABLET 3 TIMES DAILY AFTER MEALS NEEDED * Quantity: 42 Refills: 3 VICKI ALEXANDRA APRN * Start : 30-Dec-2019 Active SUMAtriptan Succinate 100 MG Oral Tablet [...] ALEXANDRA APRN * Start : 02-Feb-2016 Active Fish Oil 1200 MG Oral Capsule One capsule twice a day * Refills: 0 Active Allergies and Adverse Reactions Name Dates Details buPROPion HCl TABS (Allergy) Status: Act veronika Newman-N 50 TABS (Allergy) Status: Act veronika [...] Dates Details COLOGUARD Date: 30-Dec-2019 [[facility]] CMP W/EGFR Date: 30-Dec-2019 [[facility]] TSH, 3RD GENERATION W/REFLEX TO FT4 Date: 30-Dec-2019 History of Tonsillectomy With Adenoidectomy Completed History of Appendectomy Completed History of Cholecystectomy Completed History of Dilation And Curettage Comple nish History of Gallbladder surgery Completed History of Knee Surgery Completed History of Tubal Ligation Completed Immunization Name Dates Details Fluzone Quadrivalent 0.5 ML Intramuscula r Suspension Lot #: [id number] on: 28-Jan-2016 Tdap (Adacel) Lot #: [id number] on: 28-Jan-2016 Fluzone High-Dose 0.5 ML Intramuscular S uspension Prefilled Syringe Lot #: [id number] on: 06-Sep-2019 Prevnar 13 Intramuscular Suspension Lot #: [id number] on: 06-Sep-2019 Family History Name Dates Details [...] (finding) Vital Signs Date Test Result Details [id number] Physical Findings 10 Status: Comments: PH Q-9 Adult Depression Screening [id number] Systolic blood pressure 131 mm[Hg] Status: Comments [...] Problem not documented On: 29-Oct-2019 11:30 Appointment; GROUP LEADER SEMICONDUCTOR TESTING-ONCOLOGY, PROVIDER Encounter Diagnosis: Problem not documented On: 11-Nov-2019 9:00 Appointment; SORIN LEOS M.D. Encounter Diagnosis: Problem not documented On: 18-Nov-2019 12:20 Appointment; SORIN LEOS M.D. Encounter Diagnosis: Problem not documented On: 09-Dec-2019 10:20 Appointment; VICKI ALEXANDRA APRN Encounter Diagnosis: Problem not documented On: 30-Dec-2019 15:15
--- OUTSIDE RECORDS SUMMARY | 2020-06-17 15:13 | XMS REPORT | Summary of Care ---
Author Author [facility] Address [address] [place] [address] Phone Unavailable Care Team Providers Care Software Test Technician Name Role Phone VICKI ALEXANDRA APRN Unavailable [...] Procedure Dates Details COLOGUARD Date: 30-Dec-2019 [[facility]] CMP W/EGFR Date: 30-Dec-2019 [[facility]] TSH, 3RD GENERATION W/REFLEX TO FT4 Date: 30-Dec-2019 History of Tonsillectomy With Adenoidectomy Completed History of Appendectomy Completed History of Cholecystectomy Completed History of Dilation And Curettage Comple nish History of Gallbladder surgery Completed History of Knee Surgery Completed History of Tubal Ligation Completed Immunization Name Dates Details Fluzone Quadrivalent 0.5 ML Intramuscula r Suspension Lot #: [id number] on: 28-Jan-2016 Tdap (Adacel) Lot #: [id number] on: 28-Jan-2016 Fluzone High-Dose 0.5 ML Intramuscular S uspension Prefilled Syringe Lot #: [id number] on: 06-Sep-2019 Prevnar 13 Intramuscular Suspension Lot #: [id number] on: 06-Sep-2019 Family History Name Dates Details [...] smoker Vital Signs Date Test Result Details [id number] Physical Findings 10 Status: Comments: PH Q-9 [...] Problem not documented On: 29-Oct-2019 11:30 Appointment; CONTROLS OPERATOR MOLDED GOODS-ONCOLOGY, PROVIDER Encounter Diagnosis: Problem not documented On: 11-Nov-2019 9:00 Appointment; SORIN LEOS M.D. Encounter Diagnosis: Problem not documented On: 18-Nov-2019 12:20 Appointment; SORIN LEOS M.D. Encounter Diagnosis: Problem not documented On: 09-Dec-2019 10:20 Appointment; VICKI ALEXANDRA APRN Encounter Diagnosis: Problem not documented On: 30-Dec-2019 15:15
--- OUTSIDE RECORDS SUMMARY | 2020-06-17 15:13 | XMS REPORT | Summary of Care ---
Author Author [facility] Address [address] [place] [address] Phone Unavailable Care Team Providers Care Planimeter Operator Name Role Phone VICKI ALEXANDRA APRN Unavailable VICKI ALEXANDRA APRN Unavailable Unavailable RAI EDMONDS [place], LAI DOMINGUEZ Unavailable Unavailable SORIN LEOS MD Unavailable Unavailable RAI Aguillon, LAI Unavailable Unavailable NASRIN MITCHELL [place], VICKI Reyes Unavailable Unavailable SAAD EDMONDS [place], BG MARQUIS Unavailable Unavailable Unavailable Unavailable Functional [...] Procedure Dates Details COLOGUARD Date: 30-Dec-2019 [[facility]] CMP W/EGFR Date: 30-Dec-2019 [[facility]] TSH, 3RD GENERATION W/REFLEX TO FT4 Date: 30-Dec-2019 [[facility]] CULTURE, URINE, ROUTINE Date: 30-Dec-2019 History of Tonsillectomy With Adenoidectomy Completed History of Appendectomy Completed History of Cholecystectomy Completed History of Dilation And Curettage Comple nish History of Gallbladder surgery Completed History of Knee Surgery Completed History of Tubal Ligation Completed Immunization Name Dates Details Fluzone Quadrivalent 0.5 ML Intramuscula r Suspension Lot #: [id number] on: 28-Jan-2016 Tdap (Adacel) Lot #: [id number] on: 28-Jan-2016 Fluzone High-Dose 0.5 ML Intramuscular S uspension Prefilled Syringe Lot #: [id number] on: 06-Sep-2019 Prevnar 13 Intramuscular Suspension Lot #: [id number] on: 06-Sep-2019 Family History Name Dates Details [...] smoker Vital Signs Date Test Result Details [id number] Physical Findings 10 Status: Comments: PH Q-9 [...] Problem not documented On: 29-Oct-2019 11:30 Appointment; RAIL DETECTOR CAR OPERATOR-ONCOLOGY, PROVIDER Encounter Diagnosis: Problem not documented On: 11-Nov-2019 9:00 Appointment; SORIN LEOS M.D. Encounter Diagnosis: Problem not documented On: 18-Nov-2019 12:20 Appointment; SORIN LEOS M.D. Encounter Diagnosis: Problem not documented On: 09-Dec-2019 10:20 Appointment; VICKI ALEXANDRA APRN Encounter Diagnosis: Problem not documented On: 30-Dec-2019 15:15
--- OUTSIDE RECORDS SUMMARY | 2020-06-17 15:13 | XMS REPORT | Summary of Care ---
Author Author [facility] Address [address] [place] [address] Phone Unavailable Care Team Providers Care Cloth Printer Helper Name Role Phone VICKI ALEXANDRA APRN Unavailable VICKI ALEXANDRA APRN Unavailable Unavailable RAI EDMONDS [place], LAI DOMINGUEZ Unavailable Unavailable SORIN LEOS MD Unavailable Unavailable RAI Aguillon, LAI Unavailable Unavailable NASRIN MITCHELL [place], VICKI Reyes Unavailable Unavailable SAAD EDMONDS [place], BG MARQUIS Unavailable Unavailable Unavailable Unavailable Functional [...] Procedure Dates Details COLOGUARD Date: 30-Dec-2019 [[facility]] CMP W/EGFR Date: 30-Dec-2019 [[facility]] TSH, 3RD GENERATION W/REFLEX TO FT4 Date: 30-Dec-2019 History of Tonsillectomy With Adenoidectomy Completed History of Appendectomy Completed History of Cholecystectomy Completed History of Dilation And Curettage Comple nish History of Gallbladder surgery Completed History of Knee Surgery Completed History of Tubal Ligation Completed Immunization Name Dates Details Fluzone Quadrivalent 0.5 ML Intramuscula r Suspension Lot #: [id number] on: 28-Jan-2016 Tdap (Adacel) Lot #: [id number] on: 28-Jan-2016 Fluzone High-Dose 0.5 ML Intramuscular S uspension Prefilled Syringe Lot #: [id number] on: 06-Sep-2019 Prevnar 13 Intramuscular Suspension Lot #: [id number] on: 06-Sep-2019 Family History Name Dates Details [...] (finding) Vital Signs Date Test Result Details [id number] Physical Findings 10 Status: Comments: PH Q-9 [...] Planned Encounters Appointment; VICKI ALEXANDRA APRN On: 23-Mar-2020 10:15 [...] Problem not documented On: 29-Oct-2019 11:30 Appointment; HOBBER-ONCOLOGY, PROVIDER Encounter Diagnosis: Problem not documented On: 11-Nov-2019 9:00 Appointment; SORIN LEOS M.D. Encounter Diagnosis: Problem not documented On: 18-Nov-2019 12:20 Appointment; SORIN LEOS M.D. Encounter Diagnosis: Problem not documented On: 09-Dec-2019 10:20 Appointment; VICKI ALEXANDRA APRN Encounter Diagnosis: Problem not documented On: 30-Dec-2019 15:15
--- OUTSIDE RECORDS SUMMARY | 2020-06-17 15:13 | XMS REPORT | Summary of Care ---
Author Author [facility] Address [address] [place] [address] Phone Unavailable Care Team Providers Care Cleaner Laboratory Equipment Name Role Phone VICKI ALEXANDRA APRN Unavailable VICKI ALEXANDRA APRN Unavailable Unavailable RAI EDMONDS [place], LAI DOMINGUEZ Unavailable Unavailable SORIN LEOS MD Unavailable Unavailable RAI Aguillon, LAI Unavailable Unavailable NASRIN MITCHELL [place], VICKI Reyes Unavailable Unavailable SAAD EDMONDS [place], BG MARQUIS Unavailable Unavailable Unavailable Unavailable Functional [...] Dates Details COLOGUARD Date: 30-Dec-2019 [[facility]] CMP W/EGFR Date: 30-Dec-2019 [[facility]] TSH, 3RD GENERATION W/REFLEX TO FT4 Date: 30-Dec-2019 History of Tonsillectomy With Adenoidectomy Completed History of Appendectomy Completed History of Cholecystectomy Completed History of Dilation And Curettage Comple nish History of Gallbladder surgery Completed History of Knee Surgery Completed History of Tubal Ligation Completed Immunization Name Dates Details Fluzone Quadrivalent 0.5 ML Intramuscula r Suspension Lot #: [id number] on: 28-Jan-2016 Tdap (Adacel) Lot #: [id number] on: 28-Jan-2016 Fluzone High-Dose 0.5 ML Intramuscular S uspension Prefilled Syringe Lot #: [id number] on: 06-Sep-2019 Prevnar 13 Intramuscular Suspension Lot #: [id number] on: 06-Sep-2019 Family History Name Dates Details [...] smoker Vital Signs Date Test Result Details [id number] Physical Findings 10 Status: Comments: PH Q-9 [...] Problem not documented On: 29-Oct-2019 11:30 Appointment; POLISHER AND BUFFER-ONCOLOGY, PROVIDER Encounter Diagnosis: Problem not documented On: 11-Nov-2019 9:00 Appointment; SORIN LEOS M.D. Encounter Diagnosis: Problem not documented On: 18-Nov-2019 12:20 Appointment; SORIN LEOS M.D. Encounter Diagnosis: Problem not documented On: 09-Dec-2019 10:20 Appointment; VICKI ALEXANDRA APRN Encounter Diagnosis: Problem not documented On: 30-Dec-2019 15:15
--- OUTSIDE RECORDS SUMMARY | 2020-06-17 15:14 | XMS REPORT | Summary of Care ---
Author Author SAAD Aguillon, LESLY CORBIN Organization Unknown Address Unknown Phone Unavailable Care Team Providers Care Water Server Name Role Phone VICKI ALEXANDRA APRN, M.D., BG Grace Unavailable MARLEY GARCIA Unavailable Unavailable VICKI ALEXANDRA APRN Unavailable Lesly ATWOOD MD [place], LAI DOMINGUEZ Unavailable Unavailable SORIN LEOS MD Unavailable Unavailable RAI Aguillon, LAI Unavailable Unavailable NASRIN MITCHELL [place], VICKI Reyes Unavailable Unavailable SAAD EDMONDS [place], BG MARQUIS Unavailable Unavailable Unavailable Unavailable Functional Status Name Dates Details Functional status health issues are not documented Status: Name Dates Details Cognitive status health issues are not d ocumented Status: Problems Name Dates Details UTI symptoms (788.99, R39.9) Status: Active Frequent UTI (599.0, N39.0) Status: Active Frequency of urination (788.41, R35.0) Status: Active Visit for screening mammogram (V76.12, Z 12.31) Status: Active Well female exam with routine gynecologi kunal exam (V72.31, Z01.419) Status: Active Increased frequency of urination (788.41 , R35.0) Status: Active Acute UTI (599.0, N39.0) Status: Active Colon cancer screening (V76.51, Z12.11) Status: Active Hypothyroidism due to acquired atrophy o f thyroid (244.8, E03.4) Status: Active Abnormal Pap smear of cervix (795.00, R8 7.619) Status: Active Chronic fatigue syndrome with fibromyalg ia (780.71, R53.82) Status: Active Anemia, unspecified type (285.9, D64.9) Status: Active Dysthymic disorder (300.4, F34.1) Status: Active 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, with long-term current use of insulin (250.60, E11.40) Status: Active Seasonal allergic rhinitis due to pollen (477.0, J30.1) Status: Active Breast cancer screening (V76.10, Z12.39) Status: Active Common migraine without aura (346.10, G4 3.009) Status: Active Polyarthropathy, 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, 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1, R30.0) Status: Active Fibromyalgia (729.1, M79.7) Status: Active Urinary urgency (788.63, R39.15) Status: Active Need for Streptococcus pneumoniae vaccin ation (V03.82, Z23) Status: Active Encounter for cervical Pap smear with pe lvic exam (V76.2, Z01.419) Status: Active Acute frontal sinusitis (461.1, J01.10) Status: Active Post-menopausal (V49.81, Z78.0) Status: Active GERD without esophagitis (530.81, K21.9) Status: Active Insomnia, idiopathic (307.42, F51.01) Status: Active HSV (herpes simplex virus) infection (05 4.9, B00.9) Status: Active Acute UTI (599.0, N39.0) Status: Active Osteoporosis screening (V82.81, Z13.820) Status: Active Essential (primary) hypertension (401.9, I10) Status: Active Medications Name Dates Details DULoxetine [...] Q6 hrs PRN * Quantity: 90 Refills: 0 BG NASH M.D. * Start : 18-Dec-2018 Active Ciprofloxacin HCl [...] ALEXANDRA APRN * Start : 30-Dec-2019 Active Nitrofurantoin Monohyd Macro 100 MG Oral Capsule TAKE 1 CAPSULE EVERY 12 HOURS DAILY. * Quantity: 10 Refills: 0 DAYA Delarosa.AMARLEY Ackerman * Start : 14-Jan-2020 Active Allergies and Adverse Reactions Name Dates [...] M25. 561) Status: Resolved History of urinary tract infection (V13. 02, Z87.440) Status: Resolved History of urinary tract infection (V13. 02, Z87.440) Status: Resolved Procedures Procedure Dates Details COLOGUARD Date: 30-Dec-2019 [[facility]] CMP W/EGFR Date: 30-Dec-2019 [[facility]] TSH, 3RD GENERATION W/REFLEX TO FT4 Date: 30-Dec-2019 [[facility]] CULTURE, URINE, ROUTINE Date: 23-Jan-2020 [[facility]] URINALYSIS, COMPLETE Date: 23-Jan-2020 [[facility]] URINALYSIS, COMPLETE Date: 24-Jan-2020 [[facility]] CULTURE, URINE, ROUTINE Date: 24-Jan-2020 History of Appendectomy Completed History of Cholecystectomy Completed History of Dilation And Curettage Comple nish History of Tonsillectomy With Adenoidectomy Completed History of Salpingo-oophorectomy bilateral Completed History of Hysterectomy robotic Complete d History of Tubal Ligation Completed History of Knee Surgery Completed History of Gallbladder surgery Completed Immunization Name Dates Details Fluzone Quadrivalent 0.5 ML Intramuscula r Suspension Lot #: [id number] on: 28-Jan-2016 Tdap (Adacel) Lot #: [id number] on: 28-Jan-2016 Fluzone High-Dose 0.5 ML Intramuscular S uspension Prefilled Syringe Lot #: [id number] on: 06-Sep-2019 Prevnar 13 Intramuscular Suspension Lot #: [id number] on: 06-Sep-2019 Family History Name Dates Details Family history of Cirrhosis, nonalcoholi c (571.5, K74.60) Status: Active Family history of leukemia (V16.6, Z80.6 ) Status: Active Family history of lung cancer (V16.1, Z8 0.1) Status: Active Name Dates Details Family history of Cirrhosis, nonalcoholi c (571.5, K74.60) Status: Active Family history of leukemia (V16.6, Z80.6 ) Status: Active Name Dates Details Family history of Hypertension (V17.49) Status: Active Name Dates Details Family history of Hypertension (V17.49) Status: Active Social History Name Dates Details - Status: Name Dates Details Never smoked tobacco (finding) Never smoked tobacco (finding) Vital Signs Date Test Result Details :22 Systolic blood pressure 138 mm[Hg] Status: Comments : Location: LUE; Position: Sitting Diastolic blood pressure 84 mm[Hg] Status: Comment s: Location: LUE; Position: Sitting Body height 166.4 cm Status: Weight 98.14 kg Status: Body mass index (BMI) [Ratio] 35.45 kg/m2 Status: Body surface area Derived from formula 2.06 m2 S tatus: Body temperature 98.2 f Status: Comments: Me thod: Oral Heart Rate 106 /min Status: Respiratory rate 18 /min Status: Comments: Qu ality: Normal Results Date Description Value Details :40 [[facility]] URINALYSIS, COMPLETE UA Turbidity Marked (Abnormal) Range: Clear UA Spec Grav 1.016 Range: <=1.030 UA pH 7.0 Range: 5.0-8.0 UA Protein Negative mg/dl Range: Negative UA Glucose Negative mg/dl Range: Negative UA Ketones Negative mg/dl Range: Negative UA Bili Negative Range: Negative UA Blood Negative Range: Negative UA Nitrite Negative Range: Negative UA Leuk Est Negative Range: Negative UA RBC 2 {/HPF} Range: 0-2 UA WBC 3 {/HPF} Range: 0-5 UA Bacteria Many {/HPF} (Abnormal) Range: N one Seen UA Mucus Few {/LPF} Range: None Seen UA Sq Epi Moderate {/LPF} (Abnormal) Rang e: Few Urine Calcium Oxalate Crystal Few {/HPF} Ra nge: None Seen UA Color Adia UROBILINOGEN <=1.0 mg/dl Range: 0.1-1.0 Plan of Care Name Dates Details Planned Observations Planned Goals not documented Planned Encounters Appointment; STEREOTYPER APPRENTICE-ONCOLOGY, PROVIDER On: 10-Feb-2020 10:30 Appointment; VICKI ALEXANDRA APRN On: 23-Mar-2020 10:15 Interventions Provided Medication Changes* traMADol HCl - 50 MG Oral Tablet - Renew Instructions Name Dates Details Instructions not documented Encounters Appointment; KRYSTAL AGGARWAL APRN Encounter Diagnosis: Problem [...] Problem not documented On: 29-Oct-2019 11:30 Appointment; STEREOTYPER APPRENTICE-ONCOLOGY, PROVIDER Encounter Diagnosis: Problem not documented On: 11-Nov-2019 9:00 Appointment; SORIN LEOS M.D. Encounter Diagnosis: Problem not documented On: 18-Nov-2019 12:20 Appointment; SORIN LEOS M.D. Encounter Diagnosis: Problem not documented On: 09-Dec-2019 10:20 Appointment; VICKI ALEXANDRA APRN Encounter Diagnosis: Problem not documented On: 30-Dec-2019 15:15 Appointment; SORIN LEOS M.D. Encounter Diagnosis: Problem not documented On: 13-Jan-2020 10:40
--- OUTSIDE RECORDS SUMMARY | 2020-06-17 15:14 | XMS REPORT | Summary of Care ---
Author Author LESLY ALEXANDRA APRN Organization Unknown Address Unknown Phone Unavailable Care Team Providers Care Associate Curator Name Role Phone VICKI ALEXANDRA APRN Unavailable MARLEY GARCIA Unavailable Unavailable VICKI ALEXANDRA APRN Unavailable Unavailable RAI EDMONDS [place], LAI DOMINGUEZ Unavailable Unavailable SORIN LEOS MD Unavailable Unavailable RAI Aguillon, LAI Unavailable Unavailable NASRIN MITCHELL [place], VICKI Reyes Unavailable Unavailable SAAD EDMONDS [place], BG MARQUIS Unavailable Unavailable Unavailable Unavailable Functional [...] Active Tremor, coarse (781.0, G25.2) Status: Active Increased frequency of urination (788.41 , R35.0) Status: Active Acute UTI (599.0, N39.0) Status: Active Frequency of urination (788.41, R35.0) Status: Active Frequent UTI (599.0, N39.0) Status: Active UTI symptoms (788.99, R39.9) Status: Active Medications Name Dates Details DULoxetine [...] MG TABS one daily * Refills: 0 M.A. Active Malorie-Rul Vitamin D 50 MCG (2000 UT) Oral Tablet * Refills: 0 M.A. Active Melatonin 10 MG Oral Capsule at HS * Refills: 0 M.A. Active Multivitamins CAPS TAKE 1 CAPSULE DAILY. * Refills: 0 M.A. Active metFORMIN HCl ER 500 MG Oral [...] capsule twice a day * Refills: 0 M.A. Active Topamax 25 MG Oral Tablet two a day * Refills: 0 M.A. Active Niacin 500 MG Oral Tablet * Refills: 0 M.A. Active Zegerid OTC CAPS * Refills: 0 M.A. Active Pyridium 200 MG Oral Tablet TAKE 1 TABLET 3 TIMES DAILY AFTER MEALS NEEDED * Quantity: 42 Refills: 3 VICKI ALEXANDRA APRN * Start : 30-Dec-2019 Active Nitrofurantoin Monohyd Macro 100 MG Oral Capsule TAKE 1 CAPSULE EVERY 12 HOURS DAILY. * Quantity: 10 Refills: 0 DAYA P.A.MARLEY * Start : 14-Jan-2020 Active Allergies and [...] Procedures Procedure Dates Details COLOGUARD Date: 30-Dec-2019 [[facility]] CMP W/EGFR Date: 30-Dec-2019 [[facility]] TSH, 3RD GENERATION W/REFLEX TO FT4 Date: 30-Dec-2019 History of Tonsillectomy With Adenoidectomy Completed History of Appendectomy Completed History of Cholecystectomy Completed History of Dilation And Curettage Comple nish History of Gallbladder surgery Completed History of Knee Surgery Completed History of Tubal Ligation Completed History of Hysterectomy robotic Complete d History of Salpingo-oophorectomy bilateral Completed Immunization Name Dates Details Fluzone Quadrivalent 0.5 ML Intramuscula r Suspension Lot #: [id number] on: 28-Jan-2016 Tdap (Adacel) Lot #: [id number] on: 28-Jan-2016 Fluzone High-Dose 0.5 ML Intramuscular S uspension Prefilled Syringe Lot #: [id number] on: 06-Sep-2019 Prevnar 13 Intramuscular Suspension Lot #: [id number] on: 06-Sep-2019 Family History Name Dates Details [...] pressure 138 mm[Hg] Status: Comments : Location: E; Position: Sitting Diastolic blood pressure 84 mm[Hg] Status: Comment s: Location: E; Position: Sitting Body height 166.4 cm Status: Weight 98.14 kg Status: Body mass index (BMI) [Ratio] 35.45 kg/m2 Status: Body surface area Derived from formula 2.06 m2 S tatus: Body temperature 98.2 f Status: Comments: Me thod: Oral Heart Rate 106 /min Status: Respiratory rate 18 /min Status: Comments: Qu ality: Normal :18 Physical Findings 10 Status: Comments: PH Q-9 Adult Depression Screening :12 Systolic blood pressure 131 mm[Hg] Status: Comments : Location: E; Position: Sitting Diastolic blood pressure 80 mm[Hg] Status: Comment s: Location: [facility]; Position: Sitting Body height 65.55 in Status: [...] COMMENT PATIENT TOOK AZO THI S AM [id number] [[facility]] CULTURE, URINE, ROUTINE CULTURE Comments: CULTUR E, URINE, ROUTINE Micro Number: [id number] Test Status: Final Specimen Source: URINE Specimen Quality: Adequate Result: No Growth 14-Jan-20207:40 [QL] URINALYSIS, COMPLETE UA Turbidity Marked (Abnormal) Range: [...] Planned Goals not documented Planned Encounters Appointment; PROSTHETIC ASSISTANT-ONCOLOGY, PROVIDER On: 10-Feb-2020 10:30 Appointment; VICKI ALEXANDRA [...] Problem not documented On: 29-Oct-2019 11:30 Appointment; PROSTHETIC ASSISTANT-ONCOLOGY, PROVIDER Encounter Diagnosis: Problem not documented [...]
--- OUTSIDE RECORDS SUMMARY | 2020-06-17 15:14 | XMS REPORT | Summary of Care ---
Author Author Cherie Meadows, LESLY CORBIN Organization Unknown Address Unknown Phone Unavailable Care Team Providers Care Management Professionals Name Role Phone VICKI ALEXANDRA APRN Unavailable Unavailable DAFNE Aguillon, SORIN Unavailable Unavailable VICKI ALEXANDRA APRN Unavailable Unavailable RAI EDMONDS [place], LAI DOMINGUEZ Unavailable Unavailable DAFNE EDMONDS, SORIN [...] Frequency of urination (788.41, R35.0) Status: Active Medications Name Dates Details DULoxetine [...] MEALS NEEDED * Quantity: 42 Refills: 3 NASRIN ENRIQUEZ, VICKI Jaramillo * Start : 30-Dec-2019 Active Allergies and [...] Procedures Procedure Dates Details COLOGUARD Date: 30-Dec-2019 [[facility]] CMP W/EGFR Date: 30-Dec-2019 [[facility]] TSH, 3RD GENERATION W/REFLEX TO FT4 Date: 30-Dec-2019 [[facility]] CULTURE, URINE, ROUTINE Date: 13-Jan-2020 [[facility]] URINALYSIS, COMPLETE Date: 13-Jan-2020 History of Tonsillectomy With Adenoidectomy Completed History of Appendectomy Completed History of Cholecystectomy Completed History of Dilation And Curettage Comple nish History of Gallbladder surgery Completed History of Knee Surgery Completed History of Tubal Ligation Completed Immunization Name Dates Details Fluzone Quadrivalent 0.5 ML Intramuscula r Suspension Lot #: [id number] on: 28-Jan-2016 Tdap (Adacel) Lot #: [id number] on: 28-Jan-2016 Fluzone High-Dose 0.5 ML Intramuscular S uspension Prefilled Syringe Lot #: [id number] on: 06-Sep-2019 Prevnar 13 Intramuscular Suspension Lot #: [id number] on: 06-Sep-2019 Family History Name Dates Details [...] Planned Goals not documented Planned Encounters Appointment; MANUFACTURING SHIFT SUPERVISOR-ONCOLOGY, PROVIDER On: 30-Mar-2020 10:30 Appointment; VICKI ALEXANDRA APRN On: 23-Mar-2020 10:15 Interventions Provided Labs/Procedures/Imaging* [[facility]] CULTURE, URINE, ROUTINE; To Be Done: 13 Jan 2020 * [[facility]] URINALYSIS, COMPLETE; To Be Done: 13 Jan 2020 Instructions Name Dates Details Instructions not documented Encounters Appointment; VICKI ALEXANDRA APRN Encounter Diagnosis: Problem not documented On: 18-Jan-2018 14:00 Appointment; KRYSTAL AGGARWAL APRN Encounter Diagnosis: Problem not documented On: 02-Mar-2018 10:45 Appointment; VICKI ALEXANDRA APRN Encounter Diagnosis: Problem not documented On: 24-May-2018 14:00 Appointment; WILLIS MENDEZ PJanusz Encounter Diagnosis: Problem not documented On: 11-Jun-2018 12:30 Appointment; WILLIS MENDEZ PMekaAMeka Encounter Diagnosis: Problem [...] not documented On: 29-Oct-2019 11:30 Appointment; MANUFACTURING SHIFT SUPERVISOR-ONCOLOGY, PROVIDER Encounter Diagnosis: Problem not documented On: [...]
--- OUTSIDE RECORDS SUMMARY | 2020-06-17 15:14 | XMS REPORT | Summary of Care ---
Author Author LESLY WARNER APRN Organization Unknown Address Unknown Phone Unavailable Care Team Providers Care Rest Room Attendant Name Role Phone VICKI ALEXANDRA APRN Unavailable DAFNE Aguillon, SORIN Unavailable Unavailable JEANNETTE WARNER APRN Unavailable Unavailable NASRIN ENRIQUEZ, VICKI Jaramillo Unavailable Unavailable RAI EDMONDS [place], [...] MEALS NEEDED * Quantity: 42 Refills: 3 ALEXANDRA VICKI ENRIQUEZ * Start : 30-Dec-2019 Active Nitrofurantoin Monohyd Macro 100 MG Oral Capsule TAKE 1 CAPSULE EVERY 12 HOURS DAILY. * Quantity: 10 Refills: 0 JEANNETTE WARNER APRN * Start : 14-Jan-2020 Active Allergies and [...] Procedures Procedure Dates Details COLOGUARD Date: 30-Dec-2019 [[facility]] CMP W/EGFR Date: 30-Dec-2019 [[facility]] TSH, 3RD GENERATION W/REFLEX TO FT4 Date: 30-Dec-2019 [[facility]] CULTURE, URINE, ROUTINE Date: 13-Jan-2020 [[facility]] URINALYSIS, COMPLETE Date: 13-Jan-2020 History of Tonsillectomy With Adenoidectomy Completed History of Appendectomy Completed History of Cholecystectomy Completed History of Dilation And Curettage Comple nish History of Gallbladder surgery Completed History of Knee Surgery Completed History of Tubal Ligation Completed Immunization Name Dates Details Fluzone Quadrivalent 0.5 ML Intramuscula r Suspension Lot #: [id number] on: 28-Jan-2016 Tdap (Adacel) Lot #: [id number] on: 28-Jan-2016 Fluzone High-Dose 0.5 ML Intramuscular S uspension Prefilled Syringe Lot #: [id number] on: 06-Sep-2019 Prevnar 13 Intramuscular Suspension Lot #: [id number] on: 06-Sep-2019 Family History Name Dates Details [...] pressure 84 mm[Hg] Status: Comment s: Location: [facility]; Position: Sitting Body height 166.4 cm Status: [...] pressure 131 mm[Hg] Status: Comments : Location: [facility]; Position: Sitting Diastolic blood pressure 80 mm[Hg] Status: Comment s: Location: [facility]; Position: Sitting Body height 65.55 in Status: [...] Observations Planned Goals not documented Planned Encounters Urology Referral Appointment; LOCKSTITCH ZIPPER SETTER-ONCOLOGY, PROVIDER On: 10-Feb-2020 10:30 Appointment; VICKI ALEXANDRA APRN On: 23-Mar-2020 10:15 Interventions Provided Medication Changes* Nitrofurantoin Monohyd Macro 100 MG Oral Capsule - Start Labs/Procedures/Imaging* [QL] CULTURE, URINE, ROUTINE; To Be Done: 13 Jan 2020 * [[facility]] URINALYSIS, COMPLETE; To Be Done: 13 Jan [...] Problem not documented On: 29-Oct-2019 11:30 Appointment; LOCKSTITCH ZIPPER SETTER-ONCOLOGY, PROVIDER Encounter Diagnosis: Problem not documented On: [...]
--- OUTSIDE RECORDS SUMMARY | 2020-06-17 15:14 | XMS REPORT | Summary of Care ---
Author Author LESLY WARNER APRN Organization Unknown Address Unknown Phone Unavailable Care Team Providers Care Territory Representative Name Role Phone VICKI GUTIERREZ APRN Unavailable DAFNE Aguillon, SORIN Unavailable Unavailable JEANNETTE WARNER APRN Unavailable Unavailable NASRIN ENRIQUEZ, VICKI Jaramillo Unavailable Unavailable RAI EDMONDS [place], LAI DOMINGUEZ [...] mouth once a day Quantity: 90 VICKI GUTIERREZ APRN * Start : 20-Jun-2017 Active Levothyroxine Sodium 150 MCG Oral Tablet TAKE 1 TABLET DAILY. * Quantity: 90 Refills: 3 VICKI GUTIERREZ APRN Active Cyclobenzaprine HCl - 10 MG Oral Tablet 1 tab PO BID * Quantity: 180 Refills: 0 VICKI GUTIERREZ APRN Active Aspirin 81 MG TABS one daily * Refills: 0 Active Malorie-Rul Vitamin D 50 MCG (2000 UT) Oral Tablet * Refills: 0 Active Melatonin 10 MG Oral Capsule at HS * Refills: 0 Active Aleve 220 MG Oral Tablet TAKE 2 TABLET 2 TIMES DAILY PRN w/ Sumatriptan * Refills: 0 VICKI GUTIERREZ APRN * Start : 02-Feb-2016 Active Vitamin B-12 500 MCG Sublingual Tablet Sublingual ONE TAB ORALLY ONCE OR TWICE A DAY FOR MIGRAINE PREVENTION. * Refills: 0 VICKI GUTIERREZ APRN * Start : 02-Feb-2016 Active Multivitamins CAPS TAKE 1 CAPSULE DAILY. * Refills: 0 Active SUMAtriptan Succinate 100 MG Oral Tablet TAKE 1 TABLET BY MOUTH FOR MIGRAINE RELIEF. MAY REPEAT 2 HOURS LATER IF NEEDED. MAXIMUM 2 TABLETS PER DAY. * Quantity: 1 Refills: 6 VICKI GUTIERREZ APRN * Start : 02-Feb-2016 Active 9 Tablet Bottle metFORMIN HCl ER 500 MG Oral Tablet Extended Release 24 Hour TAKE 2 TABLETS BY MOUTH TWICE DAILY * Quantity: 360 Refills: 0 VICKI GUTIERREZ APRN * Start : 30-Dec-2014 Active traMADol HCl - 50 MG Oral Tablet 1-2 PO Q6 hrs PRN * Quantity: 90 Refills: 2 VICKI GUTIERREZ APRN * Start : 18-Dec-2018 Active L-Lysine 500 MG Oral Tablet TAKE 1 TABLET DAILY forcold sore prevention * Refills: 0 VICKI GUTIERREZ APRN * Start : 06-Sep-2019 Active Fish Oil 1200 MG Oral Capsule One capsule twice a day * Refills: 0 Active Topamax 25 MG Oral Tablet two a day * Refills: 0 Active Niacin 500 MG Oral Tablet * Refills: 0 Active Zegerid OTC CAPS * Refills: 0 Active Fosinopril Sodium 10 MG Oral Tablet TAKE 1 TABLET BY MOUTH EVERY DAY * Quantity: 90 Refills: 0 VICKI GUTIERREZ APRN * Start : 14-Apr-2017 Active Ciprofloxacin HCl - 250 MG Oral Tablet Take 1 tablet BID * Quantity: 20 Refills: 0 VICKI GUTIERREZ APRN * Start : 10-Jul-2019 Active Pyridium 200 MG Oral Tablet TAKE 1 TABLET 3 TIMES DAILY AFTER MEALS NEEDED * Quantity: 42 Refills: 3 VICKI GUTIERREZ APRN * Start : 30-Dec-2019 Active Nitrofurantoin [...] Dates Details COLOGUARD Date: 30-Dec-2019 [[facility]] CMP W/EGFR Date: 30-Dec-2019 [[facility]] TSH, 3RD GENERATION W/REFLEX TO FT4 Date: 30-Dec-2019 [[facility]] CULTURE, URINE, ROUTINE Date: 13-Jan-2020 History of Tonsillectomy With Adenoidectomy Completed History of Appendectomy Completed History of Cholecystectomy Completed History of Dilation And Curettage Comple nish History of Gallbladder surgery Completed History of Knee Surgery Completed History of Tubal Ligation Completed History of Hysterectomy robotic Complete d History of Salpingo-oophorectomy bilateral Completed Immunization Name Dates Details Fluzone Quadrivalent 0.5 ML Intramuscula r Suspension Lot #: [id number] on: 28-Jan-2016 Tdap (Adacel) Lot #: [id number] on: 28-Jan-2016 Fluzone High-Dose 0.5 ML Intramuscular S uspension Prefilled Syringe Lot #: [id number] on: 06-Sep-2019 Prevnar 13 Intramuscular Suspension Lot #: [id number] on: 06-Sep-2019 Family History Name Dates Details [...] pressure 80 mm[Hg] Status: Comment s: Location: [facility]; Position: Sitting Body height 65.55 in [...] COMMENT PATIENT TOOK AZO THI S AM 14-Jan-20207:40 [QL] URINALYSIS, COMPLETE UA Turbidity Marked [...] not documented Planned Encounters Urology Referral Appointment; LOCK OPERATOR-ONCOLOGY, PROVIDER On: 10-Feb-2020 10:30 Appointment; VICKI GUTIERREZ APRN On: 23-Mar-2020 10:15 Interventions Provided Medication Changes* Nitrofurantoin Monohyd Macro 100 MG Oral Capsule - Start Labs/Procedures/Imaging* [[facility]] CULTURE, URINE, ROUTINE; To Be Done: 13 Jan 2020 * [QL] URINALYSIS, COMPLETE; Done: 14 Jan 2020 Discussion/Summary* 65 year old female with recently abnormal pap (AGC/HRHPV Neg) who is s/p hysteroscopy with dilatation and curettage on 10/29/19 and definitive surgical management with RAVH/BSO/Cysto/Omental bx on 12/31/19: * 1. Post-op: * -Reviewed pathology with patient, which is benign and indicates atypical endometrial hyperplasia and adenomyosis. No further management required. * -Patient healing well without any wound complications or signs/symptoms of infection. * - Pt without pain and healing well overall. * 2. UTI symptoms: * -Obtain urine for UA, C&S today. * -Recent urine culture negative with Dr. Gutierrez 12/30/19. Pt just completed 10 day course of antibiotics with ciprofloxacin while also using double dosing of AZO. Reports that symptoms did not totally resolve, now with frequency of urination every hour at least. * 3. Cirrhosis of liver: * -Pt to follow-up with Dr. Jones in 2 weeks for liver ultrasound. * -Colonoscopy and EGD planned for February 2020. * RTC 4 weeks for final post-operative evaluation. * Discussed above with patient and family (spent 15 minutes face to face). Questions answered. Instructions Name Dates Details Instructions not documented Encounters Appointment; VICKI GUTIERREZ APRN Encounter Diagnosis: Problem not documented On: 18-Jan-2018 14:00 Appointment; KRYSTAL AGGARWAL APRN Encounter Diagnosis: Problem not documented On: 02-Mar-2018 10:45 Appointment; VICKI GUTIERREZ APRN Encounter Diagnosis: Problem not documented On: 24-May-2018 14:00 Appointment; WILLIS MENDEZ, P.A. Encounter Diagnosis: Problem not documented On: 11-Jun-2018 12:30 Appointment; WILLIS MENDEZ, P.A. Encounter Diagnosis: Problem not documented On: 14-Aug-2018 14:30 Appointment; VICKI GUTIERREZ APRN Encounter Diagnosis: Problem not documented On: 18-Dec-2018 11:00 Appointment; VICKI GUTIERREZ APRN Encounter Diagnosis: Problem not documented On: 31-Jan-2019 14:15 Appointment; VICKI GUTIERREZ APRN Encounter Diagnosis: Problem not documented On: 13-Feb-2019 13:30 Appointment; VICKI GUTIERREZ APRN Encounter Diagnosis: Problem not documented On: 05-Jun-2019 10:00 Appointment; VICKI GUTIERREZ APRN Encounter Diagnosis: Problem not documented On: 10-Jul-2019 14:30 Appointment; VICKI GUTIERREZ APRN Encounter Diagnosis: Problem not documented On: 06-Sep-2019 10:30 Appointment; WILLIS MENDEZ, P.A. Encounter Diagnosis: Problem not documented On: 19-Sep-2019 10:00 Appointment; SORIN LEOS M.D. Encounter Diagnosis: Problem not documented On: 07-Oct-2019 11:00 Appointment; SORIN LEOS M.D. Encounter Diagnosis: Problem not documented On: 29-Oct-2019 11:30 Appointment; LOCK OPERATOR-ONCOLOGY, PROVIDER Encounter Diagnosis: Problem not documented On: 11-Nov-2019 9:00 Appointment; SORIN LEOS M.D. Encounter Diagnosis: Problem not documented On: 18-Nov-2019 12:20 Appointment; SORIN LEOS M.D. Encounter Diagnosis: Problem not documented On: 09-Dec-2019 10:20 Appointment; VICKI GUTIERREZ APRN Encounter Diagnosis: Problem not documented On: 30-Dec-2019 15:15 Appointment; SORIN LEOS M.D. Encounter Diagnosis: Problem not documented On: 13-Jan-2020 10:40
--- OUTSIDE RECORDS SUMMARY | 2020-06-17 15:14 | XMS REPORT | Summary of Care ---
Author Author Carlo Meadows, LESLY CORBIN Organization Unknown Address Unknown Phone Unavailable Care Team Providers Care Lighting Specialist Name Role Phone VICKI ALEXANDRA APRN Unavailable Eduin Matos M.A. Unavailable Unavailable MARLEY GARCIA Unavailable Unavailable VICKI ALEXANDRA [...] Dates Details COLOGUARD Date: 30-Dec-2019 [[facility]] CMP W/EGFR Date: 30-Dec-2019 [[facility]] TSH, 3RD GENERATION W/REFLEX TO FT4 Date: 30-Dec-2019 [[facility]] CULTURE, URINE, ROUTINE Date: 23-Jan-2020 [[facility]] URINALYSIS, COMPLETE Date: 23-Jan-2020 History of Tonsillectomy With Adenoidectomy Completed History of Appendectomy Completed History of Cholecystectomy Completed History of Dilation And Curettage Comple nish History of Gallbladder surgery Completed History of Knee Surgery Completed History of Tubal Ligation Completed History of Hysterectomy robotic Complete d History of Salpingo-oophorectomy bilateral Completed Immunization Name Dates Details Fluzone Quadrivalent 0.5 ML Intramuscula r Suspension Lot #: [id number] on: 28-Jan-2016 Tdap (Adacel) Lot #: [id number] on: 28-Jan-2016 Fluzone High-Dose 0.5 ML Intramuscular S uspension Prefilled Syringe Lot #: [id number] on: 06-Sep-2019 Prevnar 13 Intramuscular Suspension Lot #: [id number] on: 06-Sep-2019 Family History Name Dates Details [...] pressure 80 mm[Hg] Status: Comment s: Location: [facility]; Position: Sitting Body height 65.55 in [...] A1c (in office) HEMOGLOBIN A1c 7.0 (Abnormal) [id number]-[id number] [O] Urine Dipstick (In Office) Glucose unable to determine LEUKOCYTES unable to determine NITRITE positive (Abnormal ) UROBILINOGEN unable to determine PROTEIN unable to determine pH 5 URINE BLOOD about 250 (Abnorma l) SPECIFIC GRAVITY 1.015 KETONES unable to determine BILIRUBIN unable to determine COLOR URINE orange (Abnormal) APPEARANCE clear (Normal) COMMENT PATIENT TOOK AZO THI S AM 95-Wsa-59908:00 [QL] CULTURE, URINE, ROUTINE CULTURE Comments: CULTUR E, URINE, ROUTINE Micro Number: [id number] Test Status: Final Specimen Source: URINE Specimen [...] Planned Goals not documented Planned Encounters Appointment; FOREST FIRE SPECIALIST SUPERVISOR-ONCOLOGY, PROVIDER On: 10-Feb-2020 10:30 Appointment; VICKI ALEXANDRA APRN On: 23-Mar-2020 10:15 Interventions Provided Labs/Procedures/Imaging* [QL] CULTURE, URINE, ROUTINE; To Be Done: 23 Jan 2020 * [[facility]] URINALYSIS, COMPLETE; To Be Done: 23 Jan 2020 Instructions Name Dates Details Instructions [...] Problem not documented On: 29-Oct-2019 11:30 Appointment; FOREST FIRE SPECIALIST SUPERVISOR-ONCOLOGY, PROVIDER Encounter Diagnosis: Problem not documented [...]
--- OUTSIDE RECORDS SUMMARY | 2020-06-17 15:14 | XMS REPORT | Summary of Care ---
Author Author DAFNE Aguillon, LESLY CORBIN Organization Unknown Address Unknown Phone Unavailable Care Team Providers Care Radiosonde Operator Name Role Phone VICKI ALEXANDRA APRN Unavailable DAFNE Aguillon, SORIN Unavailable Unavailable VICKI ALEXANDRA APRN Unavailable Unavailable RAI EDMONDS [place], LAI DOMINGUEZ Unavailable Unavailable SORIN LEOS MD Unavailable Unavailable RAI Aguillon, LAI Unavailable Unavailable NASRIN MITCHELL [place], VICKI Reyes Unavailable Unavailable SAAD EDMONDS [place], BG MARQUIS Unavailable Unavailable Unavailable Unavailable Functional [...] Date: 30-Dec-2019 [[facility]] CMP W/EGFR Date: 30-Dec-2019 [[facility]] TSH, 3RD GENERATION W/REFLEX TO FT4 Date: 30-Dec-2019 [[facility]] CULTURE, URINE, ROUTINE Date: 13-Jan-2020 [[facility]] URINALYSIS, COMPLETE Date: 13-Jan-2020 History of Tonsillectomy With Adenoidectomy Completed History of Appendectomy Completed History of Cholecystectomy Completed History of Dilation And Curettage Comple nish History of Gallbladder surgery Completed History of Knee Surgery Completed History of Tubal Ligation Completed Immunization Name Dates Details Fluzone Quadrivalent 0.5 ML Intramuscula r Suspension Lot #: [id number] on: 28-Jan-2016 Tdap (Adacel) Lot #: [id number] on: 28-Jan-2016 Fluzone High-Dose 0.5 ML Intramuscular S uspension Prefilled Syringe Lot #: [id number] on: 06-Sep-2019 Prevnar 13 Intramuscular Suspension Lot #: [id number] on: 06-Sep-2019 Family History Name Dates Details [...] Planned Goals not documented Planned Encounters Appointment; GRAPHIC ILLUSTRATOR-ONCOLOGY, PROVIDER On: 10-Feb-2020 10:30 Appointment; VICKI ALEXANDRA [...] Problem not documented On: 29-Oct-2019 11:30 Appointment; GRAPHIC ILLUSTRATOR-ONCOLOGY, PROVIDER Encounter Diagnosis: Problem not documented On: [...]
--- OUTSIDE RECORDS SUMMARY | 2020-06-17 15:14 | XMS REPORT | Summary of Care ---
Author Author DAYA Stiles, LESLY CORBIN Organization Unknown Address Unknown Phone Unavailable Care Team Providers Care Lacquer Coater Name Role Phone VICKI ALEXANDRA APRN Unavailable DAYA Stiles, MARLEY Unavailable Unavailable VICKI ALEXANDRA APRN Unavailable Unavailable RAI EDMONDS [place], LAI DOMINGUEZ Unavailable Unavailable SORIN LEOS MD Unavailable Unavailable RAI Aguillon, LAI Unavailable Unavailable NASRIN MITCHELL [place], VICKI Reyes Unavailable Unavailable SAAD EDMONDS [place], BG MARQUIS Unavailable Unavailable Unavailable Unavailable Functional [...] Procedure Dates Details COLOGUARD Date: 30-Dec-2019 [[facility]] CMP W/EGFR Date: 30-Dec-2019 [[facility]] TSH, 3RD GENERATION W/REFLEX TO FT4 Date: [...] 0.5 ML Intramuscula r Suspension Lot #: [id number] on: 28-Jan-2016 Tdap (Adacel) Lot #: [id number] on: 28-Jan-2016 Fluzone High-Dose 0.5 ML Intramuscular S uspension Prefilled Syringe Lot #: [id number] on: 06-Sep-2019 Prevnar 13 Intramuscular Suspension Lot #: [id number] on: 06-Sep-2019 Family History Name Dates Details [...] PATIENT TOOK AZO THI S AM 14-Jan-20207:40 [[facility]] URINALYSIS, COMPLETE UA Turbidity Marked (Abnormal) Range: [...] Planned Goals not documented Planned Encounters Appointment; LEAD NETWORK ARCHITECT-ONCOLOGY, PROVIDER On: 10-Feb-2020 10:30 Appointment; VICKI ALEXANDRA APRN On: 23-Mar-2020 10:15 Interventions Provided Medication Changes* Nitrofurantoin Monohyd Macro 100 MG Oral Capsule - Renew Instructions Name Dates Details Instructions [...] Problem not documented On: 29-Oct-2019 11:30 Appointment; LEAD NETWORK ARCHITECT-ONCOLOGY, PROVIDER Encounter Diagnosis: Problem not documented On: [...]
--- OUTSIDE RECORDS SUMMARY | 2020-06-17 15:14 | XMS REPORT | Summary of Care ---
Author Author LESLY Crespo M.A. Organization Unknown Address Unknown Phone Unavailable Care Team Providers Care Bus And Trolley Dispatcher Name Role Phone VICKI ALEXANDRA APRN Unavailable Cherie Meadows, Rony Unavailable Unavailable MARLEY GARCIA Unavailable Unavailable NASRIN ENRIQUEZ, VICKI Jaramillo Unavailable Unavailable RAI EDMONDS PA, LAI DOMINGUEZ Unavailable Unavailable SORIN LEOS MD Unavailable Unavailable RAI Aguillon, LAI Unavailable Unavailable NASRIN MITCHELL PA, VICKI Reyes Unavailable Unavailable SAAD EDMONDS PA, BG MARQUIS Unavailable Unavailable Unavailable Unavailable Functional [...] HOURS DAILY. * Quantity: 10 Refills: 0 MARLEY GARCIA * Start : 14-Jan-2020 Active Allergies and [...] Procedure Dates Details COLOGUARD Date: 30-Dec-2019 [[facility]] CMP W/EGFR Date: 30-Dec-2019 [QL] TSH, 3RD GENERATION W/REFLEX TO FT4 Date: 30-Dec-2019 [[facility]] CULTURE, URINE, ROUTINE Date: 23-Jan-2020 [[facility]] URINALYSIS, COMPLETE Date: 23-Jan-2020 [QL] URINALYSIS, COMPLETE Date: 24-Jan-2020 [[facility]] CULTURE, URINE, ROUTINE Date: 24-Jan-2020 History of Tonsillectomy With Adenoidectomy Completed History of Appendectomy Completed History of Cholecystectomy Completed History of Dilation And Curettage Comple nish History of Gallbladder surgery Completed History of Knee Surgery Completed History of Tubal Ligation Completed History of Hysterectomy robotic Complete d History of Salpingo-oophorectomy bilateral Completed Immunization Name Dates Details Fluzone Quadrivalent 0.5 ML Intramuscula r Suspension Lot #: [id number] on: 28-Jan-2016 Tdap (Adacel) Lot #: [id number] on: 28-Jan-2016 Fluzone High-Dose 0.5 ML Intramuscular S uspension Prefilled Syringe Lot #: [id number] on: 06-Sep-2019 Prevnar 13 Intramuscular Suspension Lot #: [id number] on: 06-Sep-2019 Family History Name Dates Details [...] pressure 138 mm[Hg] Status: Comments : Location: [facility]; Position: Sitting Diastolic blood pressure 84 mm[Hg] Status: Comment s: Location: [facility]; Position: Sitting Body height 166.4 cm Status: [...] pressure 131 mm[Hg] Status: Comments : Location: [facility]; Position: Sitting Diastolic blood pressure 80 mm[Hg] Status: Comment s: Location: E; Position: Sitting Body height 65.55 in Status: [...] COMMENT PATIENT TOOK AZO THI S AM :00 [QL] CULTURE, URINE, ROUTINE CULTURE Comments: CULTUR E, URINE, ROUTINE Micro Number: [id number] Test Status: Final Specimen Source: URINE Specimen [...] Planned Goals not documented Planned Encounters Appointment; MIS SPECIALIST-ONCOLOGY, PROVIDER On: 10-Feb-2020 10:30 Appointment; VICKI ALEXANDRA APRN On: 23-Mar-2020 10:15 Interventions Provided Labs/Procedures/Imaging* [QL] CULTURE, URINE, ROUTINE; To Be Done: 24 Jan 2020 * [[facility]] URINALYSIS, COMPLETE; To Be Done: 24 Jan 2020 Instructions Name Dates Details Instructions [...] Problem not documented On: 29-Oct-2019 11:30 Appointment; MIS SPECIALIST-ONCOLOGY, PROVIDER Encounter Diagnosis: Problem not documented [...]
--- OUTSIDE RECORDS SUMMARY | 2020-06-17 15:14 | XMS REPORT | Summary of Care ---
Author Author [facility] Address [address] [place] [address] Phone Unavailable Care Team Providers Care Auto Body Builder Apprentice Name Role Phone VICKI ALEXANDRA APRN, M.D., MARLEY Ge Unavailable Unavailable VICKI ALEXANDRA APRN Unavailable Lesly ATWOOD MD [place], LAI DOMINGUEZ Unavailable Unavailable SORIN LEOS MD Unavailable Unavailable RAI Aguillon, LAI Unavailable Unavailable NASRIN MITCHELL [place], VICKI Reyes Unavailable Lesly NASH MD [place], BG MARQUIS Unavailable Unavailable Unavailable Unavailable [...] W/REFLEX TO FT4 Date: 30-Dec-2019 [[facility]] CULTURE, URINE, ROUTINE Date: 23-Jan-2020 [[facility]] URINALYSIS, COMPLETE Date: 23-Jan-2020 [QL] URINALYSIS, COMPLETE Date: 24-Jan-2020 [[facility]] CULTURE, URINE, ROUTINE Date: 24-Jan-2020 History of [...] 0.5 ML Intramuscula r Suspension Lot #: [id number] on: 28-Jan-2016 Tdap (Adacel) Lot #: [id number] on: 28-Jan-2016 Fluzone High-Dose 0.5 ML Intramuscular S uspension Prefilled Syringe Lot #: [id number] on: 06-Sep-2019 Prevnar 13 Intramuscular Suspension Lot #: [id number] on: 06-Sep-2019 Family History Name Dates Details [...] Normal Results Date Description Value Details :40 [[facility]] URINALYSIS, COMPLETE UA Turbidity Marked (Abnormal) Range: [...] Planned Goals not documented Planned Encounters Appointment; SENSOR OPERATOR-ONCOLOGY, PROVIDER On: 10-Feb-2020 10:30 Appointment; VICKI ALEXANDRA [...] Problem not documented On: 29-Oct-2019 11:30 Appointment; SENSOR OPERATOR-ONCOLOGY, PROVIDER Encounter Diagnosis: Problem not documented [...]
--- OUTSIDE RECORDS SUMMARY | 2020-06-17 15:15 | XMS REPORT | Summary of Care ---
Author Author DAFNE Aguillon, LESLY CORBIN Organization Unknown Address Unknown Phone Unavailable Care Team Providers Care Sleeve Baster Name Role Phone VICKI ALEXANDRA APRN, M.D., BG Grace Unavailable Carlo Meadows, Eduin Unavailable Unavailable DAYA Stiles, MARLEY Unavailable Unavailable VICKI ALEXANDRA APRN Unavailable Unavailable RIA EDMONDS [place], LAI DOMINGUEZ Unavailable Unavailable SORIN LEOS MD Unavailable Unavailable RAI Aguillon, LAI Unavailable Unavailable NASRIN MITCHELL [place], VICKI Reyes Unavailable Lesly NASH MD [place], BG MARQUIS Unavailable Unavailable Unavailable Unavailable Functional [...] DAILY. * Quantity: 10 Refills: 0 DAYA Delarosa.MARLEY Tamayo * Start : 14-Jan-2020 Active Allergies and [...] Z87.440) Status: Resolved Procedures Procedure Dates Details [QL] CULTURE, URINE, ROUTINE Date: 23-Jan-2020 [QL] URINALYSIS, COMPLETE Date: 23-Jan-2020 [QL] URINALYSIS, COMPLETE Date: 24-Jan-2020 [QL] CULTURE, URINE, ROUTINE Date: 24-Jan-2020 History of [...] 0.5 ML Intramuscula r Suspension Lot #: [id number] on: 28-Jan-2016 Tdap (Adacel) Lot #: [id number] on: 28-Jan-2016 Fluzone High-Dose 0.5 ML Intramuscular S uspension Prefilled Syringe Lot #: [id number] on: 06-Sep-2019 Prevnar 13 Intramuscular Suspension Lot #: [id number] on: 06-Sep-2019 Family History Name Dates Details [...] (finding) Vital Signs Date Test Result Details No Known Vitals to report Results Date Description Value Details Results not documented Plan of Care Name Dates Details Planned Observations [QL] URINALYSIS, COMPLETE On: 24-Jan-2020 Intent [QL] CULTURE, URINE, ROUTINE On: 24-Jan-2020 Intent Planned Goals not documented Planned Encounters Appointment; VICKI ALEXANDRA APRN On: 23-Mar-2020 10:15 Interventions Provided Labs/Procedures/Imaging* [QL] CULTURE, URINE, ROUTINE; To Be Done: 23 Jan 2020 * [QL] URINALYSIS, COMPLETE; To Be Done: 23 Jan [...] documented On: 06-Sep-2019 10:30 Appointment; WILLIS MENDEZ, P.AMeka Encounter Diagnosis: Problem not documented On: 19-Sep-2019 10:00 Appointment; SORIN LEOS M.D. Encounter Diagnosis: Problem not documented On: 07-Oct-2019 11:00 Appointment; SORIN LEOS M.D. Encounter Diagnosis: Problem not documented On: 29-Oct-2019 11:30 Appointment; GENERAL OFFICE ASSOCIATE-ONCOLOGY, PROVIDER Encounter Diagnosis: Problem not documented On: 11-Nov-2019 9:00 Appointment; SORIN LEOS M.D. Encounter Diagnosis: Problem not documented On: 18-Nov-2019 12:20 Appointment; SORIN LEOS M.D. Encounter Diagnosis: Problem not documented On: 09-Dec-2019 10:20 Appointment; VICKI ALEXANDRA APRN Encounter Diagnosis: Problem not documented On: 30-Dec-2019 15:15 Appointment; SORIN LEOS M.D. Encounter Diagnosis: Problem not documented On: 31-Dec-2019 7:30 Appointment; SORIN LEOS M.D. Encounter Diagnosis: Problem not documented On: 13-Jan-2020 10:40
--- OUTSIDE RECORDS SUMMARY | 2020-06-17 15:15 | XMS REPORT | Summary of Care ---
Author Author LESLY ALEXANDRA APRN Organization Unknown Address Unknown Phone Unavailable Care Team Providers Care Straddle Buggy Operator Name Role Phone VICKI ALEXANDRA APRN Unavailable Unavailable VICKI ALEXANDRA APRN Unavailable Unavailable RAI EDMONDS [place], LAI DOMINGUEZ Unavailable Unavailable DAFNE EDMONDS, SORIN [...] Details UTI symptoms (788.99, R39.9) Status: Active Well female exam with routine gynecologi kunal exam (V72.31, Z01.419) Status: Active Visit for screening mammogram (V76.12, Z 12.31) Status: Active Essential (primary) hypertension (401.9, I10) Status: Active Need for influenza vaccination (V04.81, Z23) Status: Active Tremor, coarse (781.0, G25.2) Status: Active Fibromyalgia (729.1, M79.7) Status: Active Urinary urgency (788.63, R39.15) Status: Active Osteoporosis screening (V82.81, Z13.820) Status: Active Need for Streptococcus pneumoniae vaccin ation (V03.82, Z23) Status: Active Screening for HIV without presence of ri sk factors (V73.89, Z11.4) Status: Active NERY on CPAP (327.23, G47.33) Status: Active Fatty liver disease, nonalcoholic (571.8 , K76.0) Status: Active 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, 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 Post-menopausal (V49.81, Z78.0) Status: Active GERD without esophagitis (530.81, K21.9) Status: Active Insomnia, idiopathic (307.42, F51.01) Status: Active HSV (herpes simplex virus) infection (05 4.9, B00.9) Status: Active Colon cancer screening (V76.51, Z12.11) Status: Active Hypothyroidism due to acquired atrophy o f thyroid (244.8, E03.4) Status: Active Chronic fatigue syndrome with fibromyalg [...] G4 3.009) Status: Active Polyarthropathy, 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 Quantity: 180 VICKI ALEXANDRA APRN * Start : 20-Jun-2017 [...] Start : 02-Feb-2016 Active 9 Tablet Bottle Vitamin B-12 500 MCG Sublingual Tablet Sublingual ONE TAB ORALLY ONCE OR TWICE A DAY FOR MIGRAINE PREVENTION. * Refills: 0 VICKI ALEXANDRA APRN Start : 02-Feb-2016 Active Fosinopril Sodium 10 MG Oral Tablet TAKE 1 TABLET BY MOUTH EVERY DAY * Quantity: 90 Refills: 1 VICKI ALEXANDRA APRN * Start : 14-Apr-2017 Active traMADol HCl - 50 MG Oral Tablet 1-2 PO Q6 hrs PRN * Quantity: 90 Refills: 2 VICKI ALEXANDRA APRN * Start : 18-Dec-2018 Active Niacin 500 MG Oral Tablet * Refills: 0 Active Zegerid OTC CAPS * Refills: 0 Active Milk Thistle 500 MG Oral Capsule 1-2 TAB PO ONCE DAILY FOR LIVER PROTECTION * Quantity: 1 Refills: 0 VICKI ALEXANDRA APRN. * Start : 07-Apr-2020 Active Allergies and Adverse Reactions Name Dates Details buPROPion HCl TABS (Allergy) Status: Act veronika Darvocet-N 50 TABS (Allergy) Status: Act veronika Erythromycin TABS (Allergy) Status: Acti ve Past Medical History Name Dates Details History of Abdominal pain, acute, epigas tric (789.06, R10.13) Status: Resolved History of abnormal cervical Papanicolao u smear (V13.29, Z87.42) Status: Resolved History of Achilles tendinitis (726.71, M76.60) Status: Resolved History of Acute bacterial pharyngitis ( 462, J02.8) Status: Resolved History of acute bronchitis (V12.69, Z87 .09) Status: Resolved History of acute cystitis (V13.02, Z87.4 40) Status: Resolved History of acute cystitis (V13.02, Z87.4 40) Status: Resolved History of Acute frontal sinusitis (461. 1, J01.10) Status: Resolved History of acute pharyngitis (V12.69, Z8 7.09) Status: Resolved History of Acute upper respiratory infec tion (465.9, J06.9) Status: Resolved History of Acute UTI (599.0, N39.0) Status: Resolved History of Acute UTI (599.0, N39.0) Status: Resolved History of Acute UTI (599.0, N39.0) Status: Resolved History of Arthritis Of Multiple Sites ( 716.99) Status: Resolved History of Atypical squamous cell change s of undetermined significance (ASCUS) on vaginal cytology (795.11, R87.620) Status: Resolved History of backache (V13.59, Z87.39) Status: Resolved History of Cough (786.2, R05) Status: Resolved History of dysuria (V13.00, Z87.898) Status: Resolved History of Elevated ALT measurement (790 .4, R74.0) Status: Resolved History of Encounter for cervical Pap sm ear with pelvic exam (V76.2, Z01.419) Status: Resolved History of essential hypertension (V12.5 9, Z86.79) Status: Resolved History of fibromyositis (V13.59, Z87.39 ) Status: Resolved History of fracture of clavicle (V15.51, Z87.81) Status: Resolved History of Frequent UTI (599.0, N39.0) Status: Resolved History of hypothyroidism (V12.29, Z86.3 [...] (V12.69, Z87 .09) Status: Resolved History of postmenopausal bleeding (V13. 29, Z87.42) Status: Resolved History of precordial chest pain (V13.89 , Z87.898) Status: Resolved History of recurrent urinary tract infec tion (V13.02, Z87.440) Status: Resolved History of Right knee pain (719.46, M25. 561) Status: Resolved History of urinary frequency (V13.09, Z8 7.898) Status: Resolved History of urinary frequency (V13.09, Z8 7.898) Status: Resolved History of urinary tract infection (V13. 02, Z87.440) Status: Resolved History of urinary tract infection (V13. 02, Z87.440) Status: Resolved Procedures Procedure Dates Details [QL] CMP W/EGFR Date: 07-Apr-2020 [QL] HEMOGLOBIN A1c Date: 07-Apr-2020 [QL] TSH, 3RD GENERATION W/REFLEX TO FT4 Date: 07-Apr-2020 [QL] MICROALBUMIN, RANDOM URINE (W/CREATININE) Date: 2019 [Q] LIPID PANEL WITH REFLEX TO DIRECT LDL Date: 07-Apr-2020 [QL] CBC (INCLUDES DIFF/PLT) Date: 07-Apr-2020 [Q] HIV-1/2 Antigen and Antibodies, Fourth Generation, with Reflexes Date: 07-Apr-2020 History of Appendectomy Completed History of Cholecystectomy Completed History of Dilation And Curettage Comple nish History of Tonsillectomy With Adenoidectomy Completed History of Salpingo-oophorectomy bilateral Completed History of Hysterectomy robotic Complete d History of Tubal Ligation Completed History of Knee Surgery Completed History of Gallbladder surgery Completed Immunization Name Dates Details Fluzone Quadrivalent 0.5 ML Intramuscula r Suspension Lot #: [id number] on: 28-Jan-2016 Tdap (Adacel) Lot #: [id number] on: 28-Jan-2016 Fluzone High-Dose 0.5 ML Intramuscular S uspension Prefilled Syringe Lot #: [id number] on: 06-Sep-2019 Prevnar 13 Intramuscular Suspension Lot #: [id number] on: 06-Sep-2019 Family History Name Dates Details [...] Details Planned Observations Planned Goals not documented Interventions Provided Medication Changes* Cyclobenzaprine HCl - 10 MG Oral Tablet - Renew * DULoxetine HCl - 60 MG Oral Capsule Delayed Release Particles - Renew * Fosinopril Sodium 10 MG Oral Tablet - Renew * metFORMIN HCl ER 500 MG Oral Tablet Extended Release 24 Hour - Renew * traMADol HCl - 50 MG Oral Tablet - Renew Labs/Procedures/Imaging* [Q] HIV-1/2 Antigen and Antibodies, Fourth Generation, with Reflexes; To Be Done: 07 Apr 2020 * [Q] LIPID PANEL WITH REFLEX TO DIRECT LDL; To Be Done: 07 Apr 2020 * [QL] CBC (INCLUDES DIFF/PLT); To Be Done: 07 Apr 2020 * [QL] CMP W/EGFR; To Be Done: 07 Apr 2020 * [QL] HEMOGLOBIN A1c; To Be Done: 07 Apr 2020 * [QL] MICROALBUMIN, RANDOM URINE (W/CREATININE); To Be Done: 07 Apr 2020 * [QL] TSH, 3RD GENERATION W/REFLEX TO FT4; To Be Done: 07 Apr 2020 * Tobacco Use Screening; Done: 07 Apr 2020 Plan* Take your blood pressures in the [...] documented On: 11-Jun-2018 12:30 Appointment; WILLIS MENDEZ, PJanusz Encounter Diagnosis: Problem [...] Problem not documented On: 29-Oct-2019 11:30 Appointment; RADIO INSTALLER-ONCOLOGY, PROVIDER Encounter Diagnosis: Problem not documented On: [...] Diagnosis: Problem not documented On: 13-Jan-2020 10:40 Appointment; RADIO INSTALLER-ONCOLOGY, PROVIDER Encounter Diagnosis: Problem not documented On: 04-Feb-2020 8:00 Appointment; VICKI ALEXANDRA APRN Encounter Diagnosis: Problem not documented On: 07-Apr-2020 13:00
--- OUTSIDE RECORDS SUMMARY | 2020-06-17 15:15 | XMS REPORT | Summary of Care ---
Author Author LESLY ALEXANDRA APRN Organization Unknown Address Unknown Phone Unavailable Care Team Providers Care Residential Mental Health Worker Name Role Phone VICKI ALEXANDRA APRN Unavailable [...] screening mammogram (V76.12, Z 12.31) Status: Active Increased frequency of urination (788.41 , R35.0) Status: Active Need for influenza vaccination (V04.81, Z23) Status: Active Tremor, coarse (781.0, G25.2) Status: Active Dysuria (788.1, R30.0) Status: Active Fibromyalgia (729.1, M79.7) Status: Active Urinary urgency (788.63, R39.15) Status: Active Osteoporosis screening (V82.81, Z13.820) Status: Active Essential (primary) hypertension (401.9, I10) Status: Active NERY on CPAP (327.23, G47.33) Status: Active Fatty liver disease, nonalcoholic (571.8 , K76.0) Status: Active Need for Streptococcus pneumoniae vaccin ation (V03.82, Z23) Status: Active Encounter for cervical Pap smear with pe lvic exam (V76.2, Z01.419) Status: Active Screening for HIV without presence of ri sk factors (V73.89, Z11.4) Status: Active Post-menopausal bleeding (627.1, N95.0) Status: Active Abdominal [...] 1 TABLET BY MOUTH FOR MIGRAINE RELIEF. MARCH REPEAT 2 HOURS LATER IF NEEDED. MAXIMUM [...] 0.5 ML Intramuscula r Suspension Lot #: [id number] on: 28-Jan-2016 Tdap (Adacel) Lot #: [id number] on: 28-Jan-2016 Fluzone High-Dose 0.5 ML Intramuscular S uspension Prefilled Syringe Lot #: [id number] on: 06-Sep-2019 Prevnar 13 Intramuscular Suspension Lot #: [id number] on: 06-Sep-2019 Family History Name Dates Details [...] Problem not documented On: 29-Oct-2019 11:30 Appointment; BOOT AND SADDLE REPAIR PERSON-ONCOLOGY, PROVIDER Encounter Diagnosis: Problem not documented On: [...] Problem not documented On: 13-Jan-2020 10:40 Appointment; BOOT AND SADDLE REPAIR PERSON-ONCOLOGY, PROVIDER Encounter Diagnosis: Problem not documented On: 04-Feb-2020 8:00 Appointment; VICKI ALEXANDRA APRN Encounter Diagnosis: Problem not documented On: 07-Apr-2020 13:00
--- OUTSIDE RECORDS SUMMARY | 2020-06-17 15:15 | XMS REPORT | Summary of Care ---
Author Author [facility] Address [address] [place] [address] Phone Unavailable Care Team Providers Care Sergeant Of Officers Name Role Phone VICKI ALEXANDRA APRN, M.D., MARLEY Ge Unavailable Unavailable VICKI ALEXANDRA APRN Unavailable Lesly ATWOOD MD [place], LAI DOMINGUEZ Unavailable Unavailable SORIN LEOS MD Unavailable Unavailable RAI Aguillon, LAI Unavailable Unavailable NASRIN MITCHELL [place], VICKI Reyes Unavailable Lesly NASH MD [place], BG MARQUIS Unavailable Unavailable Unavailable Unavailable Functional Status Name Dates Details Functional status health issues are not documented Status: Name Dates Details Cognitive status health issues are not d ocumented Status: Problems Name Dates Details Osteoporosis screening (V82.81, Z13.820) Status: Active Urinary urgency (788.63, R39.15) Status: Active Synovial cyst of right popliteal space ( 727.51, M71.21) Status: Active Colon cancer screening (V76.51, Z12.11) [...] Active Tremor, coarse (781.0, G25.2) Status: Active Acute frontal sinusitis (461.1, J01.10) Status: Active Encounter for cervical Pap smear with pe lvic exam (V76.2, Z01.419) Status: Active Breast cancer screening (V76.10, Z12.39) Status: Active Increased frequency of urination (788.41 [...] 180 Refills: 0 VICKI ALEXANDRA APRN Active Melatonin 10 MG Oral Capsule at [...] ALEXANDRA APRN * Start : 10-Jul-2019 Active Fish Oil 1200 MG Oral Capsule [...] ALEXANDRA APRN * Start : 02-Feb-2016 Active L-Lysine 500 MG Oral Tablet TAKE 1 TABLET DAILY forcold sore prevention * Refills: 0 VICKI ALEXANDRA APRN * Start : 06-Sep-2019 Active Nitrofurantoin Monohyd Macro 100 MG Oral Capsule TAKE 1 CAPSULE EVERY 12 HOURS DAILY. * Quantity: 10 Refills: 0 MARLEY GARCIA * Start : 14-Jan-2020 Active Malorie-Rul Vitamin D 50 MCG (1999 [place]) Oral Tablet * Refills: 0 Active Aspirin 81 MG TABS one daily * Refills: 0 Active Allergies and Adverse [...] 0.5 ML Intramuscula r Suspension Lot #: [id number] on: 28-Jan-2016 Tdap (Adacel) Lot #: [id number] on: 28-Jan-2016 Fluzone High-Dose 0.5 ML Intramuscular S uspension Prefilled Syringe Lot #: [id number] on: 06-Sep-2019 Prevnar 13 Intramuscular Suspension Lot #: [id number] on: 06-Sep-2019 Family History Name Dates Details [...] Problem not documented On: 29-Oct-2019 11:30 Appointment; FAC ENGINEER-ONCOLOGY, PROVIDER Encounter Diagnosis: Problem not documented [...] Problem not documented On: 13-Jan-2020 10:40 Appointment; FAC ENGINEER-ONCOLOGY, PROVIDER Encounter Diagnosis: Problem not documented On: 04-Feb-2020 8:00
--- OUTSIDE RECORDS SUMMARY | 2020-06-17 15:15 | XMS REPORT | Summary of Care ---
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, 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: Active Seasonal allergic rhinitis due [...] Tablet TAKE 1 TABLET BY MOUTH EVERY DAYNEEDS APPOINTMENT * Quantity: 30 Refills: 0 VICKI ALEXANDRA APRN * Start [...] Z87.440) Status: Resolved Procedures Procedure Dates Details History of Tonsillectomy With Adenoidectomy Completed History of Appendectomy Completed History of Cholecystectomy Completed History of Dilation And Curettage Comple nish History of Gallbladder surgery Completed History of Knee Surgery Completed History of Tubal Ligation Completed History of Hysterectomy robotic Complete d History of Salpingo-oophorectomy bilateral Completed Immunization Name Dates Details Fluzone Quadrivalent 0.5 ML Intramuscula r Suspension Lot #: [id number] on: 28-Jan-2016 Tdap (Adacel) Lot #: [id number] on: 28-Jan-2016 Fluzone High-Dose 0.5 ML Intramuscular S uspension Prefilled Syringe Lot #: [id number] on: 06-Sep-2019 Prevnar 13 Intramuscular Suspension Lot #: [id number] on: 06-Sep-2019 Family History Name Dates Details [...] Planned Encounters Appointment; VICKI ALEXANDRA APRN On: 07-Apr-2020 13:00 Interventions Provided Plan* Take your blood pressures [...] Problem not documented On: 29-Oct-2019 11:30 Appointment; ROAD CLEANER-ONCOLOGY, PROVIDER Encounter Diagnosis: Problem not documented On: [...] Problem not documented On: 13-Jan-2020 10:40 Appointment; ROAD CLEANER-ONCOLOGY, PROVIDER Encounter Diagnosis: Problem not documented On: 04-Feb-2020 8:00 Appointment; VICKI ALEXANDRA APRN Encounter Diagnosis: Problem not documented On: 07-Apr-2020 13:00
--- OUTSIDE RECORDS SUMMARY | 2020-06-17 15:15 | XMS REPORT | Summary of Care ---
Author Author [facility] Address [address] [place] [address] Phone Unavailable Care Team Providers Care Senior Front End Engineer Name Role Phone VICKI ALEXANDRA APRN, M.D., MARLEY Ge Unavailable Unavailable VICKI ALEXANDRA APRN Unavailable Lesly ATWOOD MD [place], LAI DOMINGUEZ Unavailable Unavailable SORIN LEOS MD Unavailable Unavailable RAI Aguillon, LAI Unavailable Unavailable NASRIN MITCHELL [place], VICKI Reyes Unavailable Lesly NASH MD [place], BG MARQUIS Unavailable Unavailable Unavailable Unavailable [...] Active Post-menopausal bleeding (627.1, N95.0) Status: Active Visit for screening mammogram (V76.12, Z 12.31) Status: Active Well female exam with routine gynecologi kunal exam (V72.31, Z01.419) Status: Active Seasonal allergic rhinitis due to pollen (477.0, J30.1) Status: Active Polyarthropathy, 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, 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: Active Need for Streptococcus pneumoniae vaccin ation (V03.82, Z23) Status: Active Need for influenza vaccination (V04.81, Z23) Status: Active HSV (herpes simplex virus) infection (05 4.9, B00.9) Status: Active Colon cancer screening (V76.51, Z12.11) Status: Active Post-menopausal (V49.81, Z78.0) Status: Active [...] 180 Refills: 0 VICKI ALEXANDRA APRN Active Multivitamins CAPS TAKE 1 CAPSULE DAILY. [...] ALEXANDRA APRN * Start : 14-Apr-2017 Active Ciprofloxacin [...] MARLEY GARCIA * Start : 14-Jan-2020 Active traMADol HCl - 50 MG Oral Tablet 1-2 PO Q6 hrs PRN * Quantity: 90 Refills: 0 BG NASH M.D. * Start : 18-Dec-2018 Active Vitamin B-12 500 MCG Sublingual Tablet Sublingual ONE TAB ORALLY ONCE OR TWICE A DAY FOR MIGRAINE PREVENTION. * Refills: 0 VICKI ALEXANDRA APRN * Start : 02-Feb-2016 Active Aleve 220 MG Oral Tablet TAKE 2 TABLET 2 TIMES DAILY PRN w/ Sumatriptan * Refills: 0 VICKI ALEXANDRA APRN * Start : 02-Feb-2016 Active SUMAtriptan Succinate 100 MG Oral Tablet TAKE 1 TABLET BY MOUTH FOR MIGRAINE RELIEF. MAY REPEAT 2 HOURS LATER IF NEEDED. MAXIMUM 2 TABLETS PER DAY. * Quantity: 1 Refills: 6 VICKI ALEXANDRA APRN * Start : 02-Feb-2016 Active 9 Tablet Bottle Melatonin 10 MG Oral Capsule at HS * Refills: 0 Active Malorie-Rul Vitamin D 50 MCG (1999 [place]) Oral Tablet * Refills: 0 Active Aspirin 81 MG TABS one daily * Refills: 0 Active L-Lysine 500 MG Oral Tablet TAKE 1 TABLET DAILY forcold sore prevention * Refills: 0 VICKI ALEXANDRA APRN * Start : 06-Sep-2019 Active Allergies and [...] 0.5 ML Intramuscula r Suspension Lot #: [id number] on: 28-Jan-2016 Tdap (Adacel) Lot #: [id number] on: 28-Jan-2016 Fluzone High-Dose 0.5 ML Intramuscular S uspension Prefilled Syringe Lot #: [id number] on: 06-Sep-2019 Prevnar 13 Intramuscular Suspension Lot #: [id number] on: 06-Sep-2019 Family History Name Dates Details [...] Problem not documented On: 31-Jan-2019 14:15 Appointment; VIKCI ALEXANDRA APRN Encounter Diagnosis: Problem not documented [...] Problem not documented On: 29-Oct-2019 11:30 Appointment; MECHANICAL MAINTENANCE INSTRUCTOR-ONCOLOGY, PROVIDER Encounter Diagnosis: Problem not documented On: [...] Problem not documented On: 13-Jan-2020 10:40 Appointment; MECHANICAL MAINTENANCE INSTRUCTOR-ONCOLOGY, PROVIDER Encounter Diagnosis: Problem not documented On: 04-Feb-2020 8:00
--- OUTSIDE RECORDS SUMMARY | 2020-06-17 15:15 | XMS REPORT | Summary of Care ---
Author Author LESLY Bazan LVN Organization Unknown Address [facility] Phone Unavailable Care Team Providers Care Plane Tableman Name Role Phone Alisa Bazan LVN Unavailable Unavailable VICKI ALEXANDRA APRN, M.D., BG Grace Unavailable MARLEY GARCIA Unavailable Unavailable VICKI ALEXANDRA APRN Unavailable Unavailable RAI EDMONDS [place], LAI DOMINGUEZ Unavailable Unavailable SORIN LESO MD Unavailable Unavailable RAI Aguillon, LAI Unavailable Unavailable NASRIN MITCHELL [place], VICKI Reyes Unavailable Lesly NASH MD [place], BG MARQUIS Unavailable Unavailable Unavailable Unavailable Functional [...] 90 VICKI ALEXANDRA APRN * Start : 8-Aug-2017 Active Levothyroxine Sodium 150 MCG Oral Tablet [...] 0.5 ML Intramuscula r Suspension Lot #: [id number] on: 28-Jan-2016 Tdap (Adacel) Lot #: [id number] on: 28-Jan-2016 Fluzone High-Dose 0.5 ML Intramuscular S uspension Prefilled Syringe Lot #: [id number] on: 06-Sep-2019 Prevnar 13 Intramuscular Suspension Lot #: [id number] on: 06-Sep-2019 Family History Name Dates Details [...] ALEXANDRA APRN On: 07-Apr-2020 13:00 Interventions Provided Medication Changes* Fosinopril Sodium 10 MG Oral Tablet - Renew Instructions Name [...] Problem not documented On: 29-Oct-2019 11:30 Appointment; AIRLINE MECHANIC-ONCOLOGY, PROVIDER Encounter Diagnosis: Problem not documented On: [...] Problem not documented On: 13-Jan-2020 10:40 Appointment; AIRLINE MECHANIC-ONCOLOGY, PROVIDER Encounter Diagnosis: Problem not documented On: 04-Feb-2020 8:00
--- OUTSIDE RECORDS SUMMARY | 2020-06-17 15:15 | XMS REPORT | Summary of Care ---
Author Author LESLY ALEXANDRA APRN Organization Unknown Address Unknown Phone Unavailable Care Team Providers Care Grain Picker Name Role Phone VICKI ALEXANDRA APRN Unavailable Unavailable VICKI ALEXANDRA APRN Unavailable Unavailable RAI EDMONDS [place], LAI DOMINGUEZ Unavailable Unavailable SORIN LEOS MD Unavailable Unavailable RAI Aguillon, LAI Unavailable Unavailable NASRIN MITCHELL [place], VICKI Reyes Unavailable Unavailable SAAD EDMONDS [place], BG MARQUIS Unavailable Unavailable Unavailable Unavailable Functional Status Name Dates Details Functional status health issues are not documented Status: Name Dates Details Cognitive status health issues are not d ocumented Status: Problems Name Dates Details Frequent UTI (599.0, N39.0) Status: Active UTI symptoms (788.99, R39.9) Status: Active Frequency of urination (788.41, R35.0) Status: Active Visit for screening mammogram (V76.12, Z 12.31) Status: Active Well female exam with routine gynecologi kunal exam (V72.31, Z01.419) Status: Active Increased frequency of urination (788.41 , R35.0) Status: Active Acute UTI (599.0, N39.0) Status: Active Post-menopausal (V49.81, Z78.0) Status: Active [...] ALT measurement (790 .4, R74.0) Status: Resolved Need for influenza vaccination (V04.81, Z23) Status: Active Tremor, coarse (781.0, G25.2) Status: Active Atypical squamous cell changes of undete rmined significance (ASCUS) on vaginal cytology (795.11, R87.620) Status: Active Dysuria (788.1, R30.0) Status: Active Fibromyalgia (729.1, M79.7) Status: Active Urinary urgency (788.63, R39.15) Status: Active Osteoporosis screening (V82.81, Z13.820) Status: Active Post-menopausal bleeding (627.1, N95.0) Status: Active 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, 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 Quantity: 180 [facility] RN, VICKI D. * Start : 20-Jun-2017 Active Levothyroxine Sodium [...] * Quantity: 1 Refills: 0 VICKI ALEXANDRA APRN * Start : 07-Apr-2020 Active Allergies and [...] 0.5 ML Intramuscula r Suspension Lot #: [id number] on: 28-Jan-2016 Tdap (Adacel) Lot #: [id number] on: 28-Jan-2016 Fluzone High-Dose 0.5 ML Intramuscular S uspension Prefilled Syringe Lot #: [id number] on: 06-Sep-2019 Prevnar 13 Intramuscular Suspension Lot #: [id number] on: 06-Sep-2019 Family History Name Dates Details [...] Problem not documented On: 29-Oct-2019 11:30 Appointment; SQUAD BOSS-ONCOLOGY, PROVIDER Encounter Diagnosis: Problem not documented On: [...] Problem not documented On: 13-Jan-2020 10:40 Appointment; SQUAD BOSS-ONCOLOGY, PROVIDER Encounter Diagnosis: Problem not documented On: 04-Feb-2020 8:00 Appointment; VICKI ALEXANDRA APRN Encounter Diagnosis: Problem not documented On: 07-Apr-2020 13:00
--- OUTSIDE RECORDS SUMMARY | 2020-06-17 15:15 | XMS REPORT | Summary of Care ---
Author Author [facility] Address [address] [place] [address] Phone Unavailable Care Team Providers Care Deli Slicer Name Role Phone VICKI ALEXANDRA APRN Unavailable SAAD Aguillon, BG Grace Unavailable VICKI ALEXANDRA APRN Unavailable Unavailable RAI EDMONDS [place], LAI DOMINGUEZ Unavailable Unavailable DAFNE EDMONDS, SORIN Unavailable Unavailable RAI Aguillon, LAI Unavailable Unavailable NASRIN DENISE, VICKI Reyes Unavailable Unavailable SAAD EDMONDS [place], BG MARQUIS Unavailable Unavailable Unavailable Unavailable Functional [...] NASH M.D. * Start : 18-Dec-2018 Active Niacin 500 [...] Resolved Procedures Procedure Dates Details History of Appendectomy Completed History of Cholecystectomy Completed History of Dilation And Curettage Comple nish History of Tonsillectomy With Adenoidectomy Completed History of Salpingo-oophorectomy bilateral Completed History of Hysterectomy robotic Complete d History of Tubal Ligation Completed History of Knee Surgery Completed History of Gallbladder surgery Completed Immunization Name Dates Details Fluzone Quadrivalent 0.5 ML Intramuscula r Suspension Lot #: [id number] on: 28-Jan-2016 Tdap (Adacel) Lot #: [id number] on: 28-Jan-2016 Fluzone High-Dose 0.5 ML Intramuscular S uspension Prefilled Syringe Lot #: [id number] on: 06-Sep-2019 Prevnar 13 Intramuscular Suspension Lot #: [id number] on: 06-Sep-2019 Family History Name Dates Details [...] Details Planned Observations Planned Goals not documented Instructions Name Dates Details Instructions not documented [...] Problem not documented On: 29-Oct-2019 11:30 Appointment; PHARMACEUTICAL PROCESS ENGINEER-ONCOLOGY, PROVIDER Encounter Diagnosis: Problem not documented [...] Problem not documented On: 13-Jan-2020 10:40 Appointment; PHARMACEUTICAL PROCESS ENGINEER-ONCOLOGY, PROVIDER Encounter Diagnosis: Problem not documented On: 04-Feb-2020 8:00
--- OUTSIDE RECORDS SUMMARY | 2020-06-17 15:15 | XMS REPORT | Summary of Care ---
Author Author Hortensia CHANDLER, LESLY CORBIN Organization Unknown Address [facility] Phone Unavailable Care Team Providers Care Water Supervisor Name Role Phone Hortensia GERALDINEAlisa Unavailable Unavailable VICKI ALEXANDRA APRN Unavailable Unavailable NASRIN ENRIQUEZ, VICKI Jaramillo Unavailable Unavailable RAI EDMONDS [place], LAI DOMINGUEZ Unavailable Unavailable SORIN LEOS MD Unavailable Unavailable RAI Aguillon, LAI Unavailable Unavailable NASRIN MITCHELL [place], VICKI Reyes Unavailable Unavailable SAAD EDMONDS [place], BG MARQUIS Unavailable Unavailable Unavailable Unavailable Functional Status Name Dates Details Functional status health issues are not documented Status: Name Dates Details Cognitive status health issues are not d ocumented Status: Problems Name Dates Details Osteoporosis screening (V82.81, Z13.820) Status: Active Synovial cyst of right popliteal space ( 727.51, M71.21) Status: Active Urinary urgency (788.63, R39.15) Status: Active Need for Streptococcus pneumoniae vaccin ation (V03.82, Z23) Status: Active Seasonal allergic rhinitis due to pollen (477.0, J30.1) Status: Active Well female exam with routine gynecologi kunal exam (V72.31, Z01.419) Status: Active Visit for screening mammogram (V76.12, Z 12.31) Status: Active 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, 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0) Status: Active Dysthymic disorder (300.4, F34.1) Status: Active Common migraine without aura (346.10, G4 3.009) Status: Active Colon cancer screening (V76.51, Z12.11) Status: Active Chronic fatigue syndrome with fibromyalg ia (780.71, R53.82) Status: Active Breast cancer screening (V76.10, Z12.39) Status: Active Anemia, unspecified type (285.9, D64.9) Status: Active History of Elevated ALT measurement (790 .4, R74.0) Status: Resolved HSV (herpes simplex virus) infection (05 4.9, B00.9) Status: Active Hypothyroidism due to acquired atrophy o f thyroid (244.8, E03.4) Status: Active NERY on CPAP (327.23, G47.33) Status: Active Polyarthropathy, 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 * Quantity: 1 Refills: 5 VICKI ALEXANDRA APRN * Start : 02-Feb-2016 [...] Generation, with Reflexes Date: 07-Apr-2020 History of Tonsillectomy With Adenoidectomy Completed History of Appendectomy Completed History of Cholecystectomy Completed History of Dilation And Curettage Comple nish History of Knee Surgery Completed History of Gallbladder surgery Completed History of Tubal Ligation Completed History of Hysterectomy robotic Complete d History of Salpingo-oophorectomy bilateral Completed Immunization Name Dates Details Fluzone Quadrivalent 0.5 ML Intramuscula r Suspension Lot #: [id number] on: 28-Jan-2016 Tdap (Adacel) Lot #: [id number] on: 28-Jan-2016 Fluzone High-Dose 0.5 ML Intramuscular S uspension Prefilled Syringe Lot #: [id number] on: 06-Sep-2019 Prevnar 13 Intramuscular Suspension Lot #: [id number] on: 06-Sep-2019 Family History Name Dates Details [...] Goals not documented Interventions Provided Medication Changes* SUMAtriptan Succinate 100 MG Oral Tablet - Renew Instructions Name [...] Problem not documented On: 29-Oct-2019 11:30 Appointment; GRANTS AND CONTRACTS ASSISTANT-ONCOLOGY, PROVIDER Encounter Diagnosis: Problem not documented [...] Problem not documented On: 13-Jan-2020 10:40 Appointment; GRANTS AND CONTRACTS ASSISTANT-ONCOLOGY, PROVIDER Encounter Diagnosis: Problem not documented On: 04-Feb-2020 8:00 Appointment; VICKI ALEXANDRA APRN Encounter Diagnosis: Problem not documented On: 07-Apr-2020 13:00
--- OUTSIDE RECORDS SUMMARY | 2020-06-17 15:15 | XMS REPORT | Summary of Care ---
Author Author LESLY ALEXANDRA APRN Organization Unknown Address Unknown Phone Unavailable Care Team Providers Care Occupational Therapy Technician Name Role Phone VICKI ALEXANDRA APRN, M.D., MARLEY Ge Unavailable Unavailable VICKI ALEXANDRA APRN Unavailable Lesly ATWOOD MD [place], LAI DOMINGUEZ Unavailable Unavailable SORIN LEOS [...] 0.5 ML Intramuscula r Suspension Lot #: [id number] on: 28-Jan-2016 Tdap (Adacel) Lot #: [id number] on: 28-Jan-2016 Fluzone High-Dose 0.5 ML Intramuscular S uspension Prefilled Syringe Lot #: [id number] on: 06-Sep-2019 Prevnar 13 Intramuscular Suspension Lot #: [id number] on: 06-Sep-2019 Family History Name Dates Details [...] ALEXANDRA APRN On: 23-Mar-2020 10:15 Interventions Provided Plan* Take your blood pressures [...] Problem not documented On: 29-Oct-2019 11:30 Appointment; DIRECTOR OF MUSIC-ONCOLOGY, PROVIDER Encounter Diagnosis: Problem not documented On: [...] Problem not documented On: 13-Jan-2020 10:40 Appointment; DIRECTOR OF MUSIC-ONCOLOGY, PROVIDER Encounter Diagnosis: Problem not documented On: 04-Feb-2020 8:00 Appointment; VICKI ALEXANDRA APRN Encounter Diagnosis: Problem not documented On: 23-Mar-2020 10:15
--- OUTSIDE RECORDS SUMMARY | 2020-06-17 15:16 | XMS REPORT | Summary of Care ---
Author Author LESLY ALEXANDRA APRN Organization Unknown Address Unknown Phone Unavailable Care Team Providers Care Equipment Driver Name Role Phone VICKI ALEXANDRA APRN Unavailable Unavailable VICKI ALEXANDRA APRN Unavailable Unavailable RAI EDMONDS [place], LAI DOMINGUEZ Unavailable Unavailable DAFNE EDMONDS, SORIN Unavailable Unavailable RAI Aguillon, LAI Unavailable Unavailable NASRIN MITCHELL [place], VICKI Reyes Unavailable Unavailable SAAD EDMONDS [place], BG MARQUIS Unavailable Unavailable Unavailable Unavailable Functional Status Name Dates Details Functional status health issues are not documented Status: Name Dates Details Cognitive status health issues are not d ocumented Status: Problems Name Dates Details Osteoporosis screening (V82.81, Z13.820) Status: Active Urinary urgency (788.63, R39.15) Status: Active Synovial cyst of right popliteal space ( 727.51, M71.21) Status: Active Need for Streptococcus pneumoniae vaccin [...] ri sk factors (V73.89, Z11.4) Status: Active 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, with long-term current use of insulin (250.60, E11.40) Status: Active Essential (primary) hypertension (401.9, I10) Status: Active Fatty liver disease, nonalcoholic (571.8 , K76.0) Status: Active GERD without esophagitis (530.81, K21.9) [...] TAKE 1 CAPSULE TWICE DAILY. Quantity: 180 IVCKI ALEXANDRA APRN * Start : 20-Jun-2017 Active Levothyroxine Sodium 150 MCG Oral Tablet TAKE 1 TABLET DAILY. * Quantity: 90 Refills: 3 VICKI ALEXANDRA APRN Active Cyclobenzaprine HCl - 10 MG Oral Tablet 1 tab PO BID * Quantity: 180 Refills: 0 VICKI ALEXANDRA APRN Active Aspirin 81 MG TABS one daily * Refills: 0 P.A. Active Malorie-Rul Vitamin D 50 MCG (1999 [place]) Oral Tablet * Refills: 0 P.A. Active Melatonin 10 MG Oral Capsule at HS * Refills: 0 P.A. Active Multivitamins CAPS TAKE 1 CAPSULE DAILY. * Refills: 0 P.A. Active metFORMIN HCl ER 500 MG Oral [...] 500 MG Oral Tablet * Refills: 0 P.A. Active Zegerid OTC CAPS * Refills: 0 P.A. Active Milk Thistle 500 MG Oral Capsule [...] 0.5 ML Intramuscula r Suspension Lot #: [id number] on: 28-Jan-2016 Tdap (Adacel) Lot #: [id number] on: 28-Jan-2016 Fluzone High-Dose 0.5 ML Intramuscular S uspension Prefilled Syringe Lot #: [id number] on: 06-Sep-2019 Prevnar 13 Intramuscular Suspension Lot #: [id number] on: 06-Sep-2019 Family History Name Dates Details [...] to report Results Date Description Value Details :32 [Q] LIPID PANEL WITH REFLEX TO DIRECT LD L CHOLESTEROL, TOTAL 122 mg/dl (Normal) Range: <2 00 HDL CHOLESTEROL 36 mg/dl (Below low threshold) Range: > OR = 50 TRIGLYCERIDES 95 mg/dl (Normal) Range: <150 LDL-CHOLESTEROL 68 {MG/DL__CAL} (Normal) Commen ts: Reference range: <100 Desirable range <100 mg/dL for primary prevention; <70 mg/dL for patients with CHD or diabetic patients with > or = 2 CHD risk factors. LDL-C is now calculated using the Brooks calculation, which is a validated novel method providing better accuracy than the Friedewald equation in the estimation of LDL- C. Ranjith SS et al. MARYLIN. 2013;310(19): 1974-5067 (http ://Kojami.[employer]che[employer] CCA/faq/SBP710) CHOL/HDLC RATIO 3.4 {CALC} (Normal) Range: <5.0 NON HDL CHOLESTEROL 86 {MG/DL__CAL} (Normal) Ra nge: <130 Comments: For patients with diabetes plus 1 major ASCVD risk factor, treating to a non-HDL-C goal of <100 mg/dL (LDL-C of <70 mg/dL) is considered a therapeutic option. :32 [QL] MICROALBUMIN, RANDOM URINE (W/CREAT ININE) Comments: Reference RangeNot establishedREPORT COMMENT:FASTING:YES CREATININE, RANDOM URINE 163 mg/dl (Normal) Ran ge: 20-275 MICROALBUMIN 3.3 mg/dl (Normal) Comments: Re ference RangeNot established MICROALBUMIN/CREATININE RATIO, RANDOM URINE 20 {MCG/MG_CRE} (Normal) Range: <30 Comments: The ADA defines abnormalities in albuminexcretion as follows: Category Result (mcg/mg creatinine) Normal <30Microalbuminuria 30-299 Clinical albuminuria > OR = 300 The ADA recommends that at least two of threespecimens collected within a 3-6 month period beabnormal before considering a patient to bewithin a diagnostic category. :32 [Q] HIV-1/2 Antigen and Anti bodies, Fourth Generation, with Reflexes HIV AG/AB, 4TH GEN NON-REACTIVE (Normal) Range : NON-REACTIVE Comments: HIV-1 antigen and HIV-1/HIV-2 antibodies were notdetected. [...] purpose. For additional information please refer t okttp://education.TeliApp/faq/IZP352(This link is being provided for informational/educational purposes only.) The performance of this assay has not been clinicallyvalidated in patients less than 2 years old. :32 [QL] CMP W/EGFR GLUCOSE 169 mg/dl (Above high threshold ) Range: 65-99 Comments: Fasting reference interval For someone without known diabetes, a glucosevalue >125 mg/dL indicates that they may havediabetes and this should be confirmed with afollow-up test. UREA NITROGEN (BUN) 10 mg/dl (Normal) Range: 7- 25 CREATININE 0.71 mg/dl (Normal) Range: 0.50 -0.99 Comments: For patients >49 years of age, the reference limitfor Creatinine is approximately 13% higher for peopleidentified as -[place]in[place]. eGFR NON-AFR. WELSH 89 {ML/MIN/1.7} (Normal) Range: > OR = 60 eGFR 103 {ML/MIN/1.7} (Normal) Range: > OR = 60 BUN/CREATININE RATIO NOT APPLICABLE {CALC} Rang e: 6-22 SODIUM 138 mmol/L (Normal) Range: 135- 146 POTASSIUM 4.6 mmol/L (Normal) Range: 3.5- 5.3 CHLORIDE 100 mmol/L (Normal) Range: 98-1 10 CARBON DIOXIDE 30 mmol/L (Normal) Range: 20-32 CALCIUM 9.7 mg/dl (Normal) Range: 8.6-1 0.4 PROTEIN, TOTAL 7.4 g/dl (Normal) Range: 6.1-8. 1 ALBUMIN 4.2 g/dl (Normal) Range: 3.6-5. 1 GLOBULIN 3.2 {G/DL__CALC} (Normal) Range : 1.9-3.7 ALBUMIN/GLOBULIN RATIO 1.3 {CALC} (Normal) Rang e: 1.0-2.5 BILIRUBIN, TOTAL 0.7 mg/dl (Normal) Range: 0.2- 1.2 ALKALINE PHOSPHATASE 88 u/l (Normal) Range: 37- 153 AST 48 u/l (Above high threshold) R suma: 10-35 ALT 38 u/l (Above high threshold) R suma: 6-29 :32 [QL] CBC (INCLUDES DIFF/PLT) WHITE BLOOD CELL COUNT 11.0 {Thousand/u} (Above high threshold) Range: 3.8-10.8 RED BLOOD CELL COUNT 4.82 {Million/uL} (Normal) Range: 3.80-5.10 HEMOGLOBIN 11.3 g/dl (Below low threshold) Range: 11.7-15.5 HEMATOCRIT 36.7 % (Normal) Range: 35.0-45. 0 MCV 76.1 fL (Below low threshold) R suma: 80.0-100.0 MCH 23.4 pg (Below low threshold) R suma: 27.0-33.0 MCHC 30.8 g/dl (Below low threshold) Range: 32.0-36.0 RDW 15.4 % (Above high threshold) R suma: 11.0-15.0 PLATELET COUNT 315 {Thousand/u} (Normal) Range : 140-400 MPV 10.5 fL (Normal) Range: 7.5-12. 5 ABSOLUTE NEUTROPHILS 8019 {cells/uL} (Above hig h threshold) Range: 6328-9775 ABSOLUTE LYMPHOCYTES 2277 {cells/uL} (Normal) R suma: 850-3900 ABSOLUTE MONOCYTES 550 {cells/uL} (Normal) Rang e: 200-950 ABSOLUTE EOSINOPHILS 77 {cells/uL} (Normal) Ran ge: 15-500 ABSOLUTE BASOPHILS 77 {cells/uL} (Normal) Range : 0-200 NEUTROPHILS 72.9 % (Normal) LYMPHOCYTES 20.7 % (Normal) MONOCYTES 5.0 % (Normal) EOSINOPHILS 0.7 % (Normal) BASOPHILS 0.7 % (Normal) :32 [QL] TSH, 3RD GENERATION W/REFLEX TO FT4 TSH, 3RD GENERATION W/REFLEX TO FT4 0.79 {MIU/L } (Normal) Range: 0.40-4.50 :32 [QL] HEMOGLOBIN A1c Comments: REPORT CO MMENT:FASTING:YES HEMOGLOBIN A1c 7.4 {%_of_total} (Above high th reshold) Range: <5.7 Comments: For someone without known diabetes, a hemoglobin Q4exgfqd of 6.5% or greater indicates that they [...] A1c for diagnosis of diabetes for children. Plan of Care Name Dates Details Planned Observations Planned Goals not documented Interventions Provided Discussion/Summary* Labs stable with treatment but your A1c is 7.4% abit above the goal and your liver functions remain above the ULN. Increase OTC Milk Thistle and continue meds as prescribed and follow up as planned. Instructions Name Dates Details Instructions not documented [...] Problem not documented On: 29-Oct-2019 11:30 Appointment; LINE UP EXAMINER-ONCOLOGY, PROVIDER Encounter Diagnosis: Problem not documented On: [...] Problem not documented On: 13-Jan-2020 10:40 Appointment; LINE UP EXAMINER-ONCOLOGY, PROVIDER Encounter Diagnosis: Problem not documented On: 04-Feb-2020 8:00 Appointment; VICKI ALEXANDRA APRN Encounter Diagnosis: Problem not documented On: 07-Apr-2020 13:00
--- OUTSIDE RECORDS SUMMARY | 2020-06-17 15:16 | XMS REPORT | Summary of Care ---
Author Author Hortensia CHANDLER, LESLY CORBIN Organization Unknown Address [facility] Phone Unavailable Care Team Providers Care Product Developer Name Role Phone Hortensia GERALDINEAlisa Unavailable Unavailable VICKI ALEXANDRA APRN Unavailable Unavailable NASRIN ENRIQUEZ, VICKI Jaramillo Unavailable Unavailable RAI EDMONDS [place], LAI DOMINGUEZ Unavailable Unavailable SORIN LEOS MD Unavailable Unavailable RAI Aguillon, LAI Unavailable Unavailable NASRIN MITCHELL [place], VICKI Reyes Unavailable Unavailable SAAD EDMONDS [place], BG MARQUIS Unavailable Unavailable Unavailable Unavailable Functional [...] 0.5 ML Intramuscula r Suspension Lot #: [id number] on: 28-Jan-2016 Tdap (Adacel) Lot #: [id number] on: 28-Jan-2016 Fluzone High-Dose 0.5 ML Intramuscular S uspension Prefilled Syringe Lot #: [id number] on: 06-Sep-2019 Prevnar 13 Intramuscular Suspension Lot #: [id number] on: 06-Sep-2019 Family History Name Dates Details [...] C. Ranjith SS et al. MARYLIN. 2013;310(19): 7275-3170 (http ://education.ViperMed/faq/QCU064) CHOL/HDLC RATIO 3.4 {CALC} (Normal) Range: <5.0 [...] purpose. For additional information please refer t dotCloudp://education.eucl3D/faq/RWM462(This link is being provided for informational/educational purposes [...] is approximately 13% higher for peopleidentified as -[place]. eGFR NON-AFR. [place] CITIZ[place] 89 {ML/MIN/1.7} (Normal) Range: > OR = [...] 8019 {cells/uL} (Above hig h threshold) Range: 4466-6625 ABSOLUTE LYMPHOCYTES 2277 {cells/uL} (Normal) R suma: [...] For someone without known diabetes, a hemoglobin [id number] of 6.5% or greater indicates that they [...] Problem not documented On: 29-Oct-2019 11:30 Appointment; AUDIO/VIDEO TECHNICIAN-ONCOLOGY, PROVIDER Encounter Diagnosis: Problem not documented On: [...] Problem not documented On: 13-Jan-2020 10:40 Appointment; AUDIO/VIDEO TECHNICIAN-ONCOLOGY, PROVIDER Encounter Diagnosis: Problem not documented On: 04-Feb-2020 8:00 Appointment; VICKI ALEXANDRA APRN Encounter Diagnosis: Problem not documented On: 07-Apr-2020 13:00
--- NOTE | 2020-06-17 15:28 | Diagnostic Imaging Report ---
EXAMINATION: HAND 3+ VIEWS RIGHT INDICATION: Right hand pain COMPARISON: None FINDINGS: No acute fracture or dislocation. Alignment is anatomic. No substantial degenerative changes. Mild generalized soft tissue swelling. IMPRESSION: No acute osseous injury. Signed by: Estefany Mcadams MD on 06/17/2020 3:24 PM
--- NOTE | 2020-06-17 15:41 | Emergency Department Note ---
History of Present Illnes History of Present Illness Chief Complaint: Extremity Trauma/Pain History of Present Illness This is a 65 year old female Patient presents from home with complaints of right hand pain and states "I think I broke my hand". Patient reports that she hit a door with her hand. Historian: Patient Arrival Mode: Car Graduate Fellow Required: No Onset (how long ago): hour(s) Location: right hand Quality: pain Radiation: Reports extremity Severity: moderate Onset quality: sudden Timing of current episode: constant Chronicity: new Context: Denies recent illness Relieving factors: none Exacerbating factors: none Associated symptoms: Reports denies other symptoms Treatments prior to arrival: none Past Medical/Family History Physician Review I have reviewed the patient's past medical and family history. Any updates have been documented here. Past Medical History Recent Fever: No Clinical Suspicion of Infectio: No New/Unexplained Change in Ment: No Past Medical History: Hypertension, Diabetes, Hypothyroidism, UTI's, Migraines Other Medical History: SLEEP APNEA FIBROMYALGIA Essential tremors sleep apnea Past Surgical History: Cholecysctectomy, Appendectomy, Hysterectomy, T&A, Knee Replacement Other Surgery: RIGHT KNEE Social History Smoking Cessation: Never Smoker Counseling Performed: No Alcohol Use: Occasional Any Illegal Drug Use: No Physically hurt or threatened: No Family History Family history of heart diseas: No Other Last Tetanus: UTD Any Pre-Existing Lines (PICC,: No Review of Systems Review of Systems Constitutional: Reports no symptoms EENTM: Reports no symptoms Cardiovascular: Reports no symptoms Respiratory: Reports no symptoms Gastrointestinal: Reports no symptoms Genitourinary: Reports no symptoms Musculoskeletal: Reports as per HPI Integumentary: Reports no symptoms Neurological: Reports no symptoms Psychological: Reports no symptoms Endocrine: Reports no symptoms Hematological/Lymphatic: Reports no symptoms Physical Exam Related Data Allergies: Coded Allergies: bupropion (Verified Allergy, Severe, 06/17/20) acetaminophen (Verified Allergy, Unknown, 06/17/20) erythromycin base (Verified Allergy, Unknown, 06/17/20) propoxyphene (Verified Allergy, Unknown, 06/17/20) Uncoded Allergies: DARVOCET (Allergy, Mild, RASH, 06/23/11) Triage Vital Signs Vital Signs Date Time Temp Pulse Resp B/P (MAP) Pulse Ox O2 Delivery O2 Flow Rate FiO2 06/17/20 14:04 97.8 117 18 170/65 100 Room Air Vital signs reviewed: Yes Physical Exam CONSTITUTIONAL Constitutional: Present well-developed, Present well-nourished HENT HENT: Present normocephalic, Present atraumatic, Present oropharynx clear/moist, Present nose normal HENT L/R: Present left ext ear normal, Present right ext ear normal EYES Eyes: Reports PERRL, Reports conjunctivae normal NECK Neck: Present ROM normal PULMONARY Pulmonary: Present effort normal, Present breath sounds normal CARDIOVASCULAR Cardiovascular: Present regular rhythm, Present heart sounds normal, Present capillary refill normal, Present normal rate GASTROINTESTINAL Abdominal: Present soft, Present nontender, Present bowel sounds normal GENITOURINARY Genitourinary: Present exam deferred SKIN Skin: Present warm, Present dry MUSCULOSKELETAL Musculoskeletal: Present other (tenderness at index finger MCP with decr ROM secondary to pain, no functional deficit, good distal cap refill and n/v intact) NEUROLOGICAL Neurological: Present alert, Present oriented x 3, Present no gross motor or sensory deficits PSYCHOLOGICAL Psychological: Present mood/affect normal, Present judgement normal Results Imaging Imaging results reviewed: Yes Assessment & Plan Medical Decision Making MDM check xray r/o fx Reassessment Reassessment xray negative, DC home, Tyl # 3 (#10), OTC Ibuprofen as directed, F/U PCP 2 days Assessment & Plan Final Impression: (1) Contusion of right hand Last Vital Signs Date Time Temp Pulse Resp B/P (MAP) Pulse Ox O2 Delivery O2 Flow Rate FiO2 06/17/20 14:04 97.8 117 18 170/65 100 Room Air Medications in the ED Acetaminophen/ Hydrocodone Bitart 1 ea NOW PRN PO MODERATE PAIN (4-6) Last administered on 06/17/20at 15:08; Admin Dose 1 EA; Start 06/17/20 at 14:30; Stop 06/24/20 at 14:29 NICA STRONG MD Jun 17, 2020 15:41
== END 2020-06-17 15:58 | disposition home or self-care (01) ==
LOC: ER 15:06
DX: S60.221A Contusion of right hand, initial encounter (principal); W22.09XA Striking against other stationary object, initial encounter; Y92.008 Other place in unspecified non-institutional (private) residence as the place of occurrence of the external cause; I10 Essential (primary) hypertension; E11.9 Type 2 diabetes mellitus without complications; M79.7 Fibromyalgia; E03.9 Hypothyroidism, unspecified; G25.0 Essential tremor; G47.30 Sleep apnea, unspecified
CPT/HCPCS: 99283

== ENCOUNTER 2021-03-12 07:23 | Inpatient (IN) | payer MEDICARE, OTHER ==
[~2021-03-12] VITALS: Ht 167.6 cm; Wt 98.0 kg
[2021-03-12] MEDS ORDERED: MORPHINE SULFATE INJ 2 MG/ML SYR IV STA (07:34)
[2021-03-12] MEDS ORDERED: ONDANSETRON HCL INJ 2MG/ML 2ML 2 MG/ML VIAL IV STA (07:34)
[2021-03-12] MEDS ORDERED: SODIUM CHLORIDE 0.9% 500ML 500 ML IV ONE (07:45)
[2021-03-12 08:02] LABS: BASOPHILS # (AUTO) 0.1 (0.0-0.1); BASOPHILS % 0.4 % (0.0-1.0); EOSINOPHILS % 0.3 % (0.0-6.0); HEMATOCRIT 37.9 % (34.2-44.1); HEMOGLOBIN 11.6 g/dL (12.0-16.0); LYMPHOCYTES # (AUTO) 1.9 (1.0-3.2); LYMPHOCYTES % 13.4 % (18.0-39.1); MEAN CORPUSCULAR HEMOGLOBIN 24.3 pg (28-32); MEAN CORPUSCULAR HGB CONC 30.6 g/dL (31-35); MEAN CORPUSCULAR VOLUME 79.3 fL (81-99); MONOCYTES # (AUTO) 0.8 (0.2-0.8); MONOCYTES % 5.5 % (4.4-11.3); NEUTROPHILS # (AUTO) 11.1 (2.1-6.9); NEUTROPHILS % 79.9 % (38.7-80.0); PLATELET COUNT 222 x10e3/uL (140-360); RED BLOOD COUNT 4.78 x10e6/uL (3.6-5.1)
[2021-03-12 08:18] LABS: CLARITY,URINE CLOUDY (CLEAR); COLOR,URINE ORANGE (YELLOW)
[2021-03-12 08:21] LABS: INR 0.99; PROTHROMBIN TIME 13.7 seconds (11.9-14.5)
[2021-03-12 08:22] LABS: PARTIAL THROMBOPLASTIN TIME 37.2 seconds (23.8-35.5)
[2021-03-12 08:23] LABS: ALANINE AMINOTRANSFERASE 40 IU/L (0-55); ALBUMIN 3.6 g/dL (3.5-5.0); ALBUMIN/GLOBULIN RATIO 0.9 (0.8-2.0); ALKALINE PHOSPHATASE 67 IU/L (40-150); ANION GAP 16.8 mmol/L (8-16); BLOOD UREA NITROGEN 17 mg/dL (7-26); BUN/CREATININE RATIO 20 (6-25); CALCIUM 9.6 mg/dL (8.4-10.2); CARBON DIOXIDE 25 mmol/L (22-29); CHLORIDE 99 mmol/L (98-107); CREATININE, SERUM 0.87 mg/dL (0.57-1.11); EST GLOMERULAR FILTRATION RATE > 60 ML/MIN (60-); GLUCOSE 175 mg/dL (74-118); LEUKOCYTE ESTERASE ,URINE LARGE (NEGATIVE); NITRITE,URINE POSITIVE (NEGATIVE); POTASSIUM 4.8 mmol/L (3.5-5.1); SODIUM 136 mmol/L (136-145)
[2021-03-12 08:24] LABS: BACTERIA,URINE MANY /HPF; EPITHELIAL CELLS,URINE FEW /LPF; RBC,URINE >50 /HPF (0-5); WBC,URINE (MAN) >50 /HPF (0-5)
[2021-03-12 08:25] LABS: KETONES,URINE 1+ (NEGATIVE); PROTEIN,URINE DIPSTICK >=300 (NEGATIVE)
[2021-03-12 08:35] LABS: TRANSITIONAL EPI CELLS,URINE FEW
[2021-03-12] MEDS ORDERED: CEFTRIAXONE SOD 1 GM/50 ML BAG IV ONE (08:45)
[2021-03-12] MEDS ORDERED: CEFTRIAXONE SOD 1 GM in SODIUM CHLORIDE 0.9% 50ML 50 ML IV ONE (09:00)
[2021-03-12] MEDS ORDERED: HYDROMORPHONE 1MG/1ML INJ IV STA (09:44)
[2021-03-12] MEDS ORDERED: KETOROLAC TROMETHAMINE 30 MG/ML VIAL IV STA (09:44)
[2021-03-12] MEDS ORDERED: ONDANSETRON HCL INJ 2MG/ML 2ML 2 MG/ML VIAL IV PRN (10:15)
[2021-03-12] MEDS ORDERED: SODIUM CHLORIDE 0.9% 1000ML 1,000 ML IV SCH (10:15)
[2021-03-12 12:54] VITALS: BP 128/79
[2021-03-12] MEDS ORDERED: FENTANYL CITRATE/PF 100MCG/2 ML INJ ONE (13:12)
[2021-03-12] MEDS ORDERED: IOPAMIDOL 300MG/ML 50ML INFUS..BTL IV ONE (13:14)
[2021-03-12] MEDS ORDERED: B&O 60MG R/S 60 MG SUPP PR ONE (13:14)
[2021-03-12] MEDS ORDERED: ONDANSETRON HCL INJ 2MG/ML 2ML 2 MG/ML VIAL ONE (13:57)
[2021-03-12] MEDS ORDERED: PROPOFOL IV EMULSION 10 MG/ML 20 ML VIAL ONE (13:57)
[2021-03-12] MEDS ORDERED: PHENYLEPHRINE HCL 1% 10 MG/ML VIAL ONE (13:57)
[2021-03-12] MEDS ORDERED: POVIDONE IODINE 0.05% 0.05 % ML PO ONE (13:57)
[2021-03-12] MEDS ORDERED: LIDOCAINE HCL 2% LOCAL INJ 5 ML SDV VIAL INJ ONE (13:57)
[2021-03-12] MEDS ORDERED: DEXAMETHASONE SOD PHOS INJ 4 MG/ML VIAL ONE (13:57)
[2021-03-12] MEDS ORDERED: SEVOFLURANE INHAL SOLN 250 ML PEN BTL ONE (13:57)
[2021-03-12] MEDS ORDERED: KETOROLAC TROMETHAMINE 30 MG/ML VIAL ONE (13:57)
[2021-03-12] MEDS ORDERED: B&O 60MG R/S 60 MG SUPP PR PRN (15:00)
[2021-03-12] MEDS ORDERED: LEVOTHYROXINE75 MCG PO (15:08)
[2021-03-12] MEDS ORDERED: BENAZEPRIL HCL10 MG PO (15:08)
[2021-03-12] MEDS ORDERED: FEROSUL325 MG PO (15:08)
[2021-03-12] MEDS ORDERED: ULTRAM50 MG PO (15:08)
[2021-03-12] MEDS ORDERED: PROTONIX20 MG PO (15:08)
[2021-03-12] MEDS ORDERED: CYMBALTA30 MG PO (15:08)
[2021-03-12] MEDS ORDERED: CYCLOBENZAPRINE10 MG PO (15:08)
[2021-03-12] MEDS ORDERED: FISH OIL 1,2001 EAC8 PO (15:08)
[2021-03-12] MEDS ORDERED: PROPRANOLOL HCL10 MG PO (15:08)
[2021-03-12] MEDS ORDERED: METFORMIN HCL500 MG PO (15:10)
[2021-03-12] MEDS ORDERED: VITAMIN D310 MCG PO (15:10)
[2021-03-12] MEDS ORDERED: SUMATRIPTAN SUC25 MG PO (15:10)
[2021-03-12] MEDS ORDERED: ASPIRIN81 MG PO (15:10)
[2021-03-12] MEDS ORDERED: MELATONIN3 M1 PO (15:10)
[2021-03-12] MEDS ORDERED: VITAMIN B-121000 MCG PO (15:10)
[2021-03-12] MEDS ORDERED: MILK THISTLE175 M2 PO (15:10)
[2021-03-12 15:47] VITALS: BP 124/77
[2021-03-12] MEDS: HYDROMORPHONE 1MG/1ML INJ IV PRN (16:25)
[2021-03-12] MEDS ORDERED: TRAMADOL HCL 50 MG TAB PO PRN (18:15)
[2021-03-12] MEDS ORDERED: MELATONIN 5 MG TABLET PO PRN (18:30)
[2021-03-12 20:00] VITALS: BP 137/88
[2021-03-12] MEDS: CEFTRIAXONE SOD 1 GM in SODIUM CHLORIDE 0.9% 50ML 50 ML IV SCH (20:55)
[2021-03-12] MEDS: MELATONIN 5 MG TABLET PO SCH (20:55)
[2021-03-12] MEDS ORDERED: CEFTRIAXONE SOD 1 GM/50 ML BAG IV SCH (21:00)
[2021-03-12] MEDS ORDERED: MELATONIN 3 MG TAB PO SCH (21:00)
[2021-03-13] VITALS (8 sets, daily range): BP systolic 108–146; BP diastolic 67–86
[2021-03-13 05:00] LABS: BASOPHILS % 0.1 % (0.0-1.0); HEMOGLOBIN 9.9 g/dL (12.0-16.0); LYMPHOCYTES # (AUTO) 1.1 (1.0-3.2); LYMPHOCYTES % 8.9 % (18.0-39.1); MEAN CORPUSCULAR HEMOGLOBIN 24.6 pg (28-32); MEAN CORPUSCULAR HGB CONC 30.9 g/dL (31-35); MEAN CORPUSCULAR VOLUME 79.4 fL (81-99); MONOCYTES # (AUTO) 0.3 (0.2-0.8); MONOCYTES % 2.8 % (4.4-11.3); NEUTROPHILS # (AUTO) 10.4 (2.1-6.9); NEUTROPHILS % 87.9 % (38.7-80.0); PLATELET COUNT 173 x10e3/uL (140-360); RED BLOOD COUNT 4.03 x10e6/uL (3.6-5.1); RED CELL DISTRIBUTION WIDTH 18.6 % (11.7-14.4)
[2021-03-13] MEDS: LEVOTHYROXINE SODIUM 75 MCG TAB PO SCH (05:10)
[2021-03-13] MEDS: SUMATRIPTAN SUCCINATE 25 MG TAB PO PRN (05:11)
[2021-03-13 05:23] LABS: ALANINE AMINOTRANSFERASE 26 IU/L (0-55); ALBUMIN 3.1 g/dL (3.5-5.0); ALBUMIN/GLOBULIN RATIO 0.9 (0.8-2.0); ALKALINE PHOSPHATASE 53 IU/L (40-150); ANION GAP 13.3 mmol/L (8-16); BLOOD UREA NITROGEN 12 mg/dL (7-26); BUN/CREATININE RATIO 16 (6-25); CALCIUM 8.5 mg/dL (8.4-10.2); CARBON DIOXIDE 23 mmol/L (22-29); CHLORIDE 104 mmol/L (98-107); CREATININE, SERUM 0.73 mg/dL (0.57-1.11); EST GLOMERULAR FILTRATION RATE > 60 ML/MIN (60-); GLUCOSE 179 mg/dL (74-118); POTASSIUM 4.3 mmol/L (3.5-5.1); SODIUM 136 mmol/L (136-145)
[2021-03-13] MEDS ORDERED: DHA PO SCH (09:00)
[2021-03-13] MEDS ORDERED: OMEGA PO SCH (09:00)
[2021-03-13] MEDS ORDERED: CHOLECALCIFEROL 10000 UNIT PO SCH (09:00)
[2021-03-13] MEDS ORDERED: FISH OIL PO SCH (09:00)
[2021-03-13] MEDS ORDERED: EPA PO SCH (09:00)
[2021-03-13] MEDS: MILK THISTLE SEED EXTRACT PO SCH (09:00)
[2021-03-13] MEDS: CHOLECALCIFEROL 1,000 UNIT TAB PO SCH (09:00)
[2021-03-13] MEDS: METFORMIN HCL 500 MG TAB PO SCH ×2 (09:06→17:36)
[2021-03-13] MEDS: CEFTRIAXONE SOD 1 GM in SODIUM CHLORIDE 0.9% 50ML 50 ML IV SCH ×2 (09:06→21:03)
[2021-03-13] MEDS: CYCLOBENZAPRINE HCL 10 MG TAB PO SCH ×2 (09:07→17:36)
[2021-03-13] MEDS: FERROUS SULFATE 325 MG TAB PO SCH (09:07)
[2021-03-13] MEDS: ASPIRIN 81 MG CHEW TAB PO SCH (09:07)
[2021-03-13] MEDS: DULOXETINE HCL 30 MG DELAYED RELEASE PO SCH ×2 (09:07→17:36)
[2021-03-13] MEDS: OMEGA 3 POLYUNSAT FATTY ACIDS 1000 MG SOFTGEL PO SCH (09:08)
[2021-03-13] MEDS: CYANOCOBALAMIN 1,000 MCG TAB PO SCH (09:08)
[2021-03-13] MEDS: PANTOPRAZOLE SOD 40 MG TABEC PO SCH (09:08)
[2021-03-13] MEDS: PROPRANOLOL HCL 10 MG TAB PO SCH ×2 (09:48→17:36)
[2021-03-13] MEDS: BENAZEPRIL HCL 10 MG TAB PO SCH (09:49)
[2021-03-13] MEDS: DOCUSATE SODIUM 100 MG CAP PO SCH (17:36)
[2021-03-13] MEDS: PHENAZOPYRIDINE HCL 100 MG TAB PO PRN (19:34)
[2021-03-13] MEDS: MELATONIN 5 MG TABLET PO SCH (21:03)
[2021-03-13] MEDS ORDERED: SODIUM CHLORIDE 0.9% 250ML 250 ML ONE (21:06)
[2021-03-14] VITALS (9 sets, daily range): BP systolic 103–169; BP diastolic 56–81
[2021-03-14] MEDS: LEVOTHYROXINE SODIUM 75 MCG TAB PO SCH (05:43)
[2021-03-14] MEDS: SUMATRIPTAN SUCCINATE 25 MG TAB PO PRN (05:44)
[2021-03-14 05:48] LABS: BASOPHILS % 0.3 % (0.0-1.0); EOSINOPHILS # (AUTO) 0.1 (0.0-0.4); EOSINOPHILS % 0.7 % (0.0-6.0); HEMOGLOBIN 10.2 g/dL (12.0-16.0); LYMPHOCYTES # (AUTO) 2.4 (1.0-3.2); LYMPHOCYTES % 24.5 % (18.0-39.1); MEAN CORPUSCULAR HEMOGLOBIN 24.7 pg (28-32); MEAN CORPUSCULAR HGB CONC 30.9 g/dL (31-35); MEAN CORPUSCULAR VOLUME 79.9 fL (81-99); MONOCYTES # (AUTO) 0.5 (0.2-0.8); MONOCYTES % 5.5 % (4.4-11.3); NEUTROPHILS # (AUTO) 6.6 (2.1-6.9); NEUTROPHILS % 68.7 % (38.7-80.0); PLATELET COUNT 196 x10e3/uL (140-360); RED BLOOD COUNT 4.13 x10e6/uL (3.6-5.1); RED CELL DISTRIBUTION WIDTH 19.4 % (11.7-14.4)
[2021-03-14 06:04] LABS: ANION GAP 12.3 mmol/L (8-16); BLOOD UREA NITROGEN 16 mg/dL (7-26); BUN/CREATININE RATIO 21 (6-25); CARBON DIOXIDE 26 mmol/L (22-29); CHLORIDE 105 mmol/L (98-107); CREATININE, SERUM 0.78 mg/dL (0.57-1.11); EST GLOMERULAR FILTRATION RATE > 60 ML/MIN (60-); GLUCOSE 156 mg/dL (74-118); POTASSIUM 4.3 mmol/L (3.5-5.1); SODIUM 139 mmol/L (136-145)
[2021-03-14 06:05] LABS: CALCIUM 8.5 mg/dL (8.4-10.2)
[2021-03-14] MEDS: CEFTRIAXONE SOD 1 GM in SODIUM CHLORIDE 0.9% 50ML 50 ML IV SCH (08:27)
[2021-03-14] MEDS: MILK THISTLE SEED EXTRACT PO SCH (08:27)
[2021-03-14] MEDS: METFORMIN HCL 500 MG TAB PO SCH ×2 (08:27→17:14)
[2021-03-14] MEDS: DOCUSATE SODIUM 100 MG CAP PO SCH ×2 (08:28→17:14)
[2021-03-14] MEDS: ASPIRIN 81 MG CHEW TAB PO SCH (08:28)
[2021-03-14] MEDS: PROPRANOLOL HCL 10 MG TAB PO SCH ×2 (08:28→17:23)
[2021-03-14] MEDS: FERROUS SULFATE 325 MG TAB PO SCH (08:28)
[2021-03-14] MEDS: DULOXETINE HCL 30 MG DELAYED RELEASE PO SCH ×2 (08:28→17:14)
[2021-03-14] MEDS: CYCLOBENZAPRINE HCL 10 MG TAB PO SCH ×2 (08:28→17:14)
[2021-03-14] MEDS: POLYETHYLENE GLYCOL 3350 17 GM PACK PO SCH (08:29)
[2021-03-14] MEDS: BENAZEPRIL HCL 10 MG TAB PO SCH (08:29)
[2021-03-14] MEDS: CHOLECALCIFEROL 1,000 UNIT TAB PO SCH (08:29)
[2021-03-14] MEDS: OMEGA 3 POLYUNSAT FATTY ACIDS 1000 MG SOFTGEL PO SCH (08:29)
[2021-03-14] MEDS: PANTOPRAZOLE SOD 40 MG TABEC PO SCH (08:29)
[2021-03-14] MEDS: CYANOCOBALAMIN 1,000 MCG TAB PO SCH (08:29)
[2021-03-14] MEDS: PHENAZOPYRIDINE HCL 100 MG TAB PO PRN ×2 (08:51→19:47)
[2021-03-14] MEDS: PIPERACILLIN/TAZOBAC 3.375 GM in SODIUM CHLORIDE 0.9% 50ML 50 ML IV SCH ×3 (10:42→19:46)
[2021-03-14] MEDS: MELATONIN 5 MG TABLET PO SCH (21:00)
[2021-03-15] VITALS (7 sets, daily range): BP systolic 128–143; BP diastolic 77–93
[2021-03-15] MEDS: PIPERACILLIN/TAZOBAC 3.375 GM in SODIUM CHLORIDE 0.9% 50ML 50 ML IV SCH ×2 (00:45→06:15)
[2021-03-15 05:20] LABS: BASOPHILS % 0.6 % (0.0-1.0); EOSINOPHILS # (AUTO) 0.1 (0.0-0.4); HEMATOCRIT 36.8 % (34.2-44.1); HEMOGLOBIN 11.3 g/dL (12.0-16.0); LYMPHOCYTES # (AUTO) 1.9 (1.0-3.2); LYMPHOCYTES % 27.7 % (18.0-39.1); MEAN CORPUSCULAR HEMOGLOBIN 24.2 pg (28-32); MEAN CORPUSCULAR HGB CONC 30.7 g/dL (31-35); MEAN CORPUSCULAR VOLUME 78.8 fL (81-99); MONOCYTES # (AUTO) 0.4 (0.2-0.8); MONOCYTES % 5.4 % (4.4-11.3); NEUTROPHILS # (AUTO) 4.5 (2.1-6.9); NEUTROPHILS % 65.2 % (38.7-80.0); PLATELET COUNT 190 x10e3/uL (140-360); RED BLOOD COUNT 4.67 x10e6/uL (3.6-5.1); RED CELL DISTRIBUTION WIDTH 19.4 % (11.7-14.4)
[2021-03-15 05:36] LABS: ANION GAP 15.3 mmol/L (8-16); BLOOD UREA NITROGEN 14 mg/dL (7-26); BUN/CREATININE RATIO 17 (6-25); CALCIUM 8.9 mg/dL (8.4-10.2); CARBON DIOXIDE 23 mmol/L (22-29); CHLORIDE 106 mmol/L (98-107); CREATININE, SERUM 0.84 mg/dL (0.57-1.11); EST GLOMERULAR FILTRATION RATE > 60 ML/MIN (60-); GLUCOSE 137 mg/dL (74-118); POTASSIUM 4.3 mmol/L (3.5-5.1); SODIUM 140 mmol/L (136-145)
[2021-03-15] MEDS: LEVOTHYROXINE SODIUM 75 MCG TAB PO SCH (06:15)
[2021-03-15] MEDS: POLYETHYLENE GLYCOL 3350 17 GM PACK PO SCH (09:00)
[2021-03-15] MEDS: MILK THISTLE SEED EXTRACT PO SCH (09:00)
[2021-03-15] MEDS: DOCUSATE SODIUM 100 MG CAP PO SCH ×2 (09:00→17:00)
[2021-03-15] MEDS: CHOLECALCIFEROL 1,000 UNIT TAB PO SCH (09:00)
[2021-03-15] MEDS: METFORMIN HCL 500 MG TAB PO SCH ×2 (10:42→18:17)
[2021-03-15] MEDS: ASPIRIN 81 MG CHEW TAB PO SCH (10:42)
[2021-03-15] MEDS: FERROUS SULFATE 325 MG TAB PO SCH (10:47)
[2021-03-15] MEDS: DULOXETINE HCL 30 MG DELAYED RELEASE PO SCH ×2 (10:47→18:17)
[2021-03-15] MEDS: CYCLOBENZAPRINE HCL 10 MG TAB PO SCH ×2 (10:47→18:17)
[2021-03-15] MEDS: PANTOPRAZOLE SOD 40 MG TABEC PO SCH (10:48)
[2021-03-15] MEDS: CYANOCOBALAMIN 1,000 MCG TAB PO SCH (10:48)
[2021-03-15] MEDS: OMEGA 3 POLYUNSAT FATTY ACIDS 1000 MG SOFTGEL PO SCH (10:48)
[2021-03-15] MEDS: BENAZEPRIL HCL 10 MG TAB PO SCH (10:48)
[2021-03-15] MEDS: PROPRANOLOL HCL 10 MG TAB PO SCH ×2 (10:48→18:18)
[2021-03-15] MEDS: PHENAZOPYRIDINE HCL 100 MG TAB PO PRN (11:10)
[2021-03-15] MEDS ORDERED: MEROPENEM 500MG/ NS 50ML 50 ML IV SCH (14:00)
[2021-03-15] MEDS: SUMATRIPTAN SUCCINATE 25 MG TAB PO PRN ×2 (20:45)
[2021-03-15] MEDS: MELATONIN 5 MG TABLET PO SCH (21:14)
[2021-03-16] VITALS (7 sets, daily range): BP systolic 98–155; BP diastolic 60–93
[2021-03-16] MEDS: MEROPENEM 500MG/ NS 50ML 50 ML IV SCH ×3 (03:43→20:12)
[2021-03-16] MEDS: LEVOTHYROXINE SODIUM 75 MCG TAB PO SCH (06:03)
[2021-03-16] MEDS ORDERED: ONDANSETRON HCL 4 MG ORAL DISINTEGRATING TAB PO PRN (08:45)
[2021-03-16] MEDS: CHOLECALCIFEROL 1,000 UNIT TAB PO SCH (09:00)
[2021-03-16] MEDS: MILK THISTLE SEED EXTRACT PO SCH (09:00)
[2021-03-16] MEDS: DOCUSATE SODIUM 100 MG CAP PO SCH ×2 (09:00→16:16)
[2021-03-16] MEDS: POLYETHYLENE GLYCOL 3350 17 GM PACK PO SCH (09:00)
[2021-03-16] MEDS: ASPIRIN 81 MG CHEW TAB PO SCH (09:31)
[2021-03-16] MEDS: DULOXETINE HCL 30 MG DELAYED RELEASE PO SCH ×2 (09:31→18:06)
[2021-03-16] MEDS: METFORMIN HCL 500 MG TAB PO SCH ×2 (09:31→18:06)
[2021-03-16] MEDS: FERROUS SULFATE 325 MG TAB PO SCH (09:31)
[2021-03-16] MEDS: CYCLOBENZAPRINE HCL 10 MG TAB PO SCH ×2 (09:31→18:06)
[2021-03-16] MEDS: BENAZEPRIL HCL 10 MG TAB PO SCH (09:34)
[2021-03-16] MEDS: OMEGA 3 POLYUNSAT FATTY ACIDS 1000 MG SOFTGEL PO SCH (09:34)
[2021-03-16] MEDS: PROPRANOLOL HCL 10 MG TAB PO SCH ×2 (09:34→18:06)
[2021-03-16] MEDS: PANTOPRAZOLE SOD 40 MG TABEC PO SCH (09:35)
[2021-03-16] MEDS: CYANOCOBALAMIN 1,000 MCG TAB PO SCH (09:35)
[2021-03-16] MEDS: SUMATRIPTAN SUCCINATE 25 MG TAB PO PRN (13:40)
[2021-03-16] MEDS: PHENAZOPYRIDINE HCL 100 MG TAB PO PRN (18:11)
[2021-03-16] MEDS: MELATONIN 5 MG TABLET PO SCH (22:30)
[2021-03-17 02:17] VITALS: BP 131/98
[2021-03-17] MEDS: MEROPENEM 500MG/ NS 50ML 50 ML IV SCH (03:52)
[2021-03-17] MEDS: HYDROMORPHONE 1MG/1ML INJ IV PRN (04:19)
[2021-03-17 06:33] VITALS: BP 132/76
[2021-03-17] MEDS: LEVOTHYROXINE SODIUM 75 MCG TAB PO SCH (06:49)
[2021-03-17 07:58] VITALS: BP 137/84
[2021-03-17 08:06] VITALS: BP 137/84
[2021-03-17] MEDS: CHOLECALCIFEROL 1,000 UNIT TAB PO SCH (09:00)
[2021-03-17] MEDS: DOCUSATE SODIUM 100 MG CAP PO SCH (09:00)
[2021-03-17] MEDS: MILK THISTLE SEED EXTRACT PO SCH (09:00)
[2021-03-17] MEDS: POLYETHYLENE GLYCOL 3350 17 GM PACK PO SCH (09:00)
[2021-03-17] MEDS: METFORMIN HCL 500 MG TAB PO SCH (09:54)
[2021-03-17] MEDS: ASPIRIN 81 MG CHEW TAB PO SCH (09:55)
[2021-03-17] MEDS: FERROUS SULFATE 325 MG TAB PO SCH (09:55)
[2021-03-17] MEDS: CYCLOBENZAPRINE HCL 10 MG TAB PO SCH (09:55)
[2021-03-17] MEDS: DULOXETINE HCL 30 MG DELAYED RELEASE PO SCH (09:55)
[2021-03-17] MEDS: OMEGA 3 POLYUNSAT FATTY ACIDS 1000 MG SOFTGEL PO SCH (09:56)
[2021-03-17] MEDS: BENAZEPRIL HCL 10 MG TAB PO SCH (09:56)
[2021-03-17] MEDS: CYANOCOBALAMIN 1,000 MCG TAB PO SCH (09:56)
[2021-03-17] MEDS: PANTOPRAZOLE SOD 40 MG TABEC PO SCH (09:56)
[2021-03-17] MEDS: PROPRANOLOL HCL 10 MG TAB PO SCH (09:56)
[2021-03-17] MEDS: PHENAZOPYRIDINE HCL 100 MG TAB PO PRN (09:59)
== END 2021-03-17 10:45 | disposition home or self-care (01) | DRG 660 ==
LOC: ER 07:38 → ERHOLD 10:14 → MED/SURG2 12:09
PROVIDERS: ADMIT Internal Medicine; ATTEND Internal Medicine
PROC: BT141ZZ Fluoroscopy of Kidneys, Ureters and Bladder using Low Osmolar Contrast (ICD-10-PCS; 2021-03-12)
PROC: 02HV33Z Insertion of Infusion Device into Superior Vena Cava, Percutaneous Approach (ICD-10-PCS; 2021-03-12)
PROC: 0T778DZ Dilation of Left Ureter with Intraluminal Device, Via Natural or Artificial Opening Endoscopic (ICD-10-PCS; principal; 2021-03-12 13:03)
DX: N13.6 Pyonephrosis (principal); Z16.12 Extended spectrum beta lactamase (ESBL) resistance; I10 Essential (primary) hypertension; N28.1 Cyst of kidney, acquired; E11.9 Type 2 diabetes mellitus without complications; M79.7 Fibromyalgia; K74.60 Unspecified cirrhosis of liver; K75.81 Nonalcoholic steatohepatitis (NASH); Z20.822 Contact with and (suspected) exposure to COVID-19; N39.0 Urinary tract infection, site not specified; B96.20 Unspecified Escherichia coli [E. coli] as the cause of diseases classified elsewhere; E66.9 Obesity, unspecified; Z68.34 Body mass index [BMI] 34.0-34.9, adult
CPT/HCPCS: 36415; 36569; 71045; 74176; 74420; 80048; 80053; 81001; 82948; 83605; 83970; 84550; 85025; 85610; 85730; 87040; 87086; 87186; 96361; 99284; C1758; C2617; J0696; J1100; J1170; J1885; J2001; J2270; J2370; J2405; J2543; J3010; J7030; J7040; J7050; Q0162; U0002

== ENCOUNTER → 2021-07-20 | Outpatient (CLI) | payer MEDICARE, OTHER ==
[~2021-07-20] MED LIST: ASPIRIN81 MG PO; BENAZEPRIL HCL10 MG PO; CYCLOBENZAPRINE10 MG PO; CYMBALTA30 MG PO; FEROSUL325 MG PO; FISH OIL 1,2001 EAC8 PO; LEVOTHYROXINE75 MCG PO; MELATONIN3 M1 PO; METFORMIN HCL500 MG PO; MILK THISTLE175 M2 PO; PROPRANOLOL HCL10 MG PO; PROTONIX20 MG PO; SUMATRIPTAN SUC25 MG PO; ULTRAM50 MG PO; VITAMIN B-121000 MCG PO; VITAMIN D310 MCG PO
== END ==
LOC: US 09:34
PROVIDERS: ATTEND Urology
DX: N20.0 Calculus of kidney (principal); N13.30 Unspecified hydronephrosis
CPT/HCPCS: 74018; 76770; 76857

== ENCOUNTER → 2021-10-11 | Outpatient (CLI) | payer MEDICARE, OTHER | LOC: CT 12:03 | PROVIDERS: ATTEND Urology | DX: N20.0 Calculus of kidney (principal) | CPT/HCPCS: 74176 ==

== ENCOUNTER → 2022-03-29 | Outpatient (CLI) | payer MEDICARE, OTHER | LOC: RAD 11:24 | PROVIDERS: ATTEND Urology | DX: N20.0 Calculus of kidney (principal) | CPT/HCPCS: 74018 ==

== ENCOUNTER 2022-08-16 05:44 | Observation (INO) | payer MEDICARE, OTHER ==
[~2022-08-16] VITALS: Ht 167.6 cm; Wt 90.3 kg
[2022-08-16] MEDS ORDERED: CELECOXIB 200 MG CAP ONE (06:09)
[2022-08-16] MEDS ORDERED: GABAPENTIN 300 MG CAP ONE (06:09)
[2022-08-16] MEDS ORDERED: DEXAMETHASONE SOD PHOS 10 MG/1 ML VIAL ONE (06:09)
[2022-08-16] MEDS ORDERED: Vancomycin IV 1,000 MG ONE (06:22)
[2022-08-16] MEDS ORDERED: SODIUM CHLORIDE 0.9% 500ML 500 ML ONE (06:22)
[2022-08-16] MEDS ORDERED: TRANEXAMIC ACID 20 ML ONE (06:23)
[2022-08-16] MEDS ORDERED: ROPIVACAINE 246.25 MG, EPINEPHRINE HCL 1:1000 1ML 0.5 MG, CLONIDINE HCL 0.08 MG, KETORO... INJ ONE ×5 (08:00)
[2022-08-16] MEDS ORDERED: ZOLPIDEM TARTRATE 5 MG TAB PO PRN (08:45)
[2022-08-16] MEDS ORDERED: HYDROCODONE/APAP 5MG-325MG TAB PO PRN (08:45)
[2022-08-16] MEDS ORDERED: SODIUM CHLORIDE 0.9% 1000ML 1,000 ML IV SCH (08:45)
[2022-08-16] MEDS ORDERED: DOCUSATE SODIUM 100 MG CAP PO PRN (08:45)
[2022-08-16] MEDS ORDERED: ONDANSETRON HCL INJ 2MG/ML 2ML 2 MG/ML VIAL IV PRN (08:45)
[2022-08-16] MEDS ORDERED: DIPHENHYDRAMINE HCL INJ 50 MG/ML VIAL IV PRN (08:45)
[2022-08-16] MEDS ORDERED: FENTANYL CITRATE/PF 100MCG/2 ML INJ ONE ×2 (09:41→19:36)
[2022-08-16] MEDS: HYDROCODONE/APAP 7.5MG-325MG 1 EA TAB PO PRN ×2 (10:40→12:54)
[2022-08-16] MEDS ORDERED: HYDROCODON-ACE1 EA12 PO (12:22)
[2022-08-16 13:34] VITALS: BP 122/82
[2022-08-16] MEDS ORDERED: ROPIVACAINE 0.5% 5 MG/ML 30 ML SDV ONE (13:50)
[2022-08-16 13:56] VITALS: BP 122/82
[2022-08-16 16:11] VITALS: BP 127/66
[2022-08-16] MEDS ORDERED: CELECOXIB 100 MG CAP PO SCH (17:00)
[2022-08-16] MEDS ORDERED: ASPIRIN 325 MG TAB PO SCH (19:30)
[2022-08-16] MEDS ORDERED: MIDAZOLAM HCL 2 MG/2 ML VIAL ONE (19:36)
[2022-08-17] MEDS ORDERED: ACETAMINOPHEN 1000 MG/100 ML IV PRN (08:45)
== END 2022-08-16 18:16 | disposition home health service (06) ==
LOC: OR 05:44 → PACU V 08:41 → MED/SURG2 12:03
PROVIDERS: ADMIT Specialist; ATTEND Specialist
DX: M17.11 Unilateral primary osteoarthritis, right knee (principal); E11.9 Type 2 diabetes mellitus without complications; G25.0 Essential tremor; M79.7 Fibromyalgia; I10 Essential (primary) hypertension; E03.9 Hypothyroidism, unspecified; G47.30 Sleep apnea, unspecified; K74.60 Unspecified cirrhosis of liver; K75.81 Nonalcoholic steatohepatitis (NASH); E78.5 Hyperlipidemia, unspecified; Z88.5 Allergy status to narcotic agent; Z88.8 Allergy status to other drugs, medicaments and biological substances; Z01.812 Encounter for preprocedural laboratory examination; Z01.818 Encounter for other preprocedural examination
CPT/HCPCS: 27447; 36415; 71046; 73560; 82948; 86850; 86900; 86920; 94799; 97110; 97116 ×2; 97161; 97530; C1713; C1776 ×2; G0378; J0171; J0690; J1100; J1885; J2795; J3010; J3370; J7040; J2250

== ENCOUNTER → 2024-05-14 | Outpatient (REF) | payer MEDICARE, OTHER ==
[~2024-05-14] MED LIST changes: +HYDROCODON-ACE1 EA12 PO
== END ==
LOC: CT 13:26
PROVIDERS: ATTEND Urology
DX: N13.2 Hydronephrosis with renal and ureteral calculous obstruction (principal); R16.0 Hepatomegaly, not elsewhere classified
CPT/HCPCS: 74176

== ENCOUNTER → 2024-06-21 | Day surgery (SDC) | payer MEDICARE, OTHER ==
[~2024-06-21] MED LIST changes: +DEXAMETHASONE SOD PHOS INJ 4 MG/ML SDV ONE; +EPHEDRINE SULFATE INJ 50 MG/ML VIAL ONE; +FENTANYL CITRATE/PF 100MCG/2 ML INJ ONE; +IOPAMIDOL 610MG/1ML 300 MG/ML VIAL IV ONE; +LIDOCAINE HCL 2% LOCAL INJ 5 ML SDV VIAL INJ ONE; +ONDANSETRON HCL INJ 2MG/ML 2ML 2 MG/ML VIAL ONE; +PROPOFOL IV EMULSION 10 MG/ML 20 ML VIAL ONE; +SEVOFLURANE INHAL SOLN 250 ML PEN BTL ONE; +SUCCINYLCHOLINE CHLORIDE 20 MG/ML 10ML VIAL ONE; +SYNTHROID125 MCG PO; +VITAMIN B121000 MCG PO
[2024-06-21 10:02] LABS: BASOPHILS # (AUTO) 0.1 (0.0-0.1); BASOPHILS % 0.7 % (0.0-1.0); EOSINOPHILS # (AUTO) 0.1 (0.0-0.4); EOSINOPHILS % 0.6 % (0.0-6.0); HEMATOCRIT 40.5 % (34.2-44.1); HEMOGLOBIN 13.4 g/dL (12.0-16.0); LYMPHOCYTES # (AUTO) 2.1 (1.0-3.2); LYMPHOCYTES % 23.1 % (18.0-39.1); MEAN CORPUSCULAR HEMOGLOBIN 29.8 pg (28-32); MEAN CORPUSCULAR HGB CONC 33.1 g/dL (31-35); MONOCYTES # (AUTO) 0.4 (0.2-0.8); MONOCYTES % 4.7 % (4.4-11.3); NEUTROPHILS # (AUTO) 6.3 (2.1-6.9); NEUTROPHILS % 70.5 % (38.7-80.0); PLATELET COUNT 221 x10e3/uL (140-360); RED CELL DISTRIBUTION WIDTH 13.6 % (11.7-14.4); WHITE BLOOD COUNT 8.98 x10e3/uL (4.8-10.8)
[2024-06-21] MEDS: LACTATED RINGER'S 1,000 ML ONE (10:03)
[2024-06-21] MEDS: CEFTRIAXONE 1 GM VIAL ONE (10:04)
[2024-06-21 10:13] LABS: INR 1.05; PROTHROMBIN TIME 14.2 seconds (11.9-14.5)
[2024-06-21 10:23] LABS: ALBUMIN 4.4 g/dL (3.5-5.0); ALBUMIN/GLOBULIN RATIO 1.3 (0.8-2.0); ANION GAP 17.6 mmol/L (8-16); BILIRUBIN,TOTAL 0.7 mg/dL (0.2-1.2); CALCIUM 9.7 mg/dL (8.4-10.2); CREATININE, SERUM 1.1 mg/dL (0.57-1.11); POTASSIUM 4.6 mmol/L (3.5-5.1); TOTAL PROTEIN 7.7 g/dL (6.5-8.1); URIC ACID 6.7 mg/dL (2.6-8.0)
[2024-06-21] MEDS: PHENAZOPYRIDINE HCL 100 MG TAB ONE (16:28)
[2024-06-21] MEDS: ACETAMINOPHEN/CODEINE 300MG - 30MG TAB ONE (17:09)
[2024-06-21 17:15] VITALS: BP 141/80; PULSE 81; RESP 17; O2SAT 99
[2024-06-22 07:18] LABS: CALCIUM 9.5 mg/dL (8.7-10.3)
== END | disposition home or self-care (01) ==
LOC: OR 09:12
PROVIDERS: ATTEND Urology
DX: N20.1 Calculus of ureter (principal); N13.30 Unspecified hydronephrosis; N20.0 Calculus of kidney; N39.0 Urinary tract infection, site not specified; N13.5 Crossing vessel and stricture of ureter without hydronephrosis; R80.9 Proteinuria, unspecified; N81.89 Other female genital prolapse; N28.1 Cyst of kidney, acquired; N81.10 Cystocele, unspecified; N81.6 Rectocele; N95.2 Postmenopausal atrophic vaginitis; D11.9 Benign neoplasm of major salivary gland, unspecified; E66.01 Morbid (severe) obesity due to excess calories; K74.60 Unspecified cirrhosis of liver; Z88.6 Allergy status to analgesic agent; Z88.1 Allergy status to other antibiotic agents; Z88.8 Allergy status to other drugs, medicaments and biological substances; Z79.82 Long term (current) use of aspirin; Z79.84 Long term (current) use of oral hypoglycemic drugs; Z79.899 Other long term (current) drug therapy; Z68.31 Body mass index [BMI] 31.0-31.9, adult
CPT/HCPCS: 36415; 52332; 52344; 71046; 74018; 74420; 80053; 82948; 83970; 84550; 85025; 85610; 85730; 87086; 93005; C1758; C1769; C2617; J0330; J0696; J1100; J2001; J2405; J2704; J3010; J7121; Q9967

== ENCOUNTER → 2024-07-25 | Outpatient (REF) | payer MEDICARE, OTHER ==
[~2024-07-25] MED LIST changes: -DEXAMETHASONE SOD PHOS INJ 4 MG/ML SDV ONE; -EPHEDRINE SULFATE INJ 50 MG/ML VIAL ONE; -FENTANYL CITRATE/PF 100MCG/2 ML INJ ONE; -IOPAMIDOL 610MG/1ML 300 MG/ML VIAL IV ONE; -LIDOCAINE HCL 2% LOCAL INJ 5 ML SDV VIAL INJ ONE; -ONDANSETRON HCL INJ 2MG/ML 2ML 2 MG/ML VIAL ONE; -PROPOFOL IV EMULSION 10 MG/ML 20 ML VIAL ONE; -SEVOFLURANE INHAL SOLN 250 ML PEN BTL ONE; -SUCCINYLCHOLINE CHLORIDE 20 MG/ML 10ML VIAL ONE
== END ==
LOC: RAD 07:53
PROVIDERS: ATTEND Urology
DX: T19.1XXA Foreign body in bladder, initial encounter (principal); N20.0 Calculus of kidney
CPT/HCPCS: 74018

== ENCOUNTER → 2024-09-19 | Outpatient (REF) | payer MEDICARE, OTHER | LOC: US 12:32 | PROVIDERS: ATTEND Urology | DX: N13.30 Unspecified hydronephrosis (principal) | CPT/HCPCS: 76770; 76857 ==